=== PATIENT | female | born 1965 | race American Indian/Alaskan Native ===

== ENCOUNTER 2017-12-10 09:42 | Outpatient (CLI) | payer MEDICARE ==
--- NOTE | 2017-12-10 14:24 | Mammography Report ---
BILATERAL MAMMOGRAM: FINDINGS: The breast tissue is heterogeneously dense, which could obscure detection of small masses (approximately 50%-75% glandular). No mass, distortion, suspicious calcification, or skin change is seen. No significant exam in August 2013. CAD was utilized. IMPRESSION: Negative mammogram. There is no mammographic evidence of malignancy. RECOMMENDATION: Follow-up per ACS guidelines. BI-RADS CATEGORY: 1 = Negative ACR BI-RADS MAMMOGRAPHIC CODES: 0 = Needs additional imaging evaluation; 1 = Negative; 2 = Benign; 3 = Probably benign; 4 = Suspicious; 5 = Malignant; 6 = Known biopsy-proven malignancy COMMENT: 1. Dense breast tissue, i.e., adenosis, fibrocystic changes, etc., may obscure an underlying neoplasm. 2. Approximately 10% of cancers are not detected with mammography. 3. A negative mammography report should not delay biopsy if a clinically suspicious mass is present. COMMENT: Patient follow-up letters are generated in [email or web address].
== END 2017-12-10 09:43 | disposition home or self-care (01) ==
LOC: MAMMO 09:42
PROVIDERS: ATTEND Internal Medicine
DX: Z12.31 Encounter for screening mammogram for malignant neoplasm of breast (principal)
CPT/HCPCS: 77067

== ENCOUNTER 2018-04-13 19:32 | Emergency (ER) | payer MEDICARE ==
[2018-04-13] MEDS ORDERED: ASPIRIN PO ONE (20:18)
[2018-04-13 20:49] LABS: Basophils # (Auto) 0.1 K/mm3 (0.0-0.1); Basophils % (Auto) 1.1 % (0.0-1.8); Eosinophils # (Auto) 0.2 K/mm3 (0.0-0.4); Eosinophils % (Auto) 2.5 % (0.0-4.3); Hematocrit 52.6 % (30.3-42.9); Hemoglobin 17.6 gm/dl (10.1-14.3); Lymphocytes # (Auto) 1.8 K/mm3 (1.2-5.4); Lymphocytes % (Auto) 26.4 % (13.4-35.0); Mean Corpuscular HGB Conc 34 % (30-34); Mean Corpuscular Hemoglobin 29 pg (28-32); Mean Corpuscular Volume 87 fl (79-97); Monocytes # (Auto) 0.5 K/mm3 (0.0-0.8); Monocytes % (Auto) 6.7 % (0.0-7.3); Platelet Count 251 K/mm3 (140-440); Red Blood Count 6.02 M/mm3 (3.65-5.03); Red Cell Distribution Width 15.5 % (13.2-15.2)
[2018-04-13 21:00] LABS: INR 0.89 (0.87-1.13)
[2018-04-13 21:01] LABS: Partial Thromboplastin Time 26.5 Sec. (24.2-36.6)
[2018-04-13 21:25] LABS: Alanine Aminotransferase 11 units/L (7-56); Albumin 2.9 g/dL (3.9-5); BUN/Creatinine Ratio 19; Blood Urea Nitrogen 15 mg/dL (7-17); Calcium 9.6 mg/dL (8.4-10.2); Hemolysis Index 3; Lipase 60 units/L (13-60)
--- NOTE | 2018-04-13 21:26 | XRay Report ---
FINAL REPORT PROCEDURE: XR CHEST ROUTINE 2V TECHNIQUE: PA and lateral chest radiographs were obtained. CPT 95542 HISTORY: Shortness of Breath COMPARISON: No prior studies are available for comparison. FINDINGS: Heart: Normal. Mediastinum/Vessels: Normal. Lungs/Pleural space: A rounded inhomogeneous density is noted measuring about 2.6 centimeters located in the left lower lobe. There is prominence of the left hilar structures. Right lung and bilateral pleural spaces are clear.. Bony thorax: No acute osseous abnormality. Other: IMPRESSION: Prominent left hilum and a 2.6 centimeter density in the left lower lobe are suspicious for malignancy left lung with left hilar lymphadenopathy. CT chest pre and post contrast is recommended..
--- NOTE | 2018-04-14 00:23 | Emergency Department Report ---
ED Chest Pain HPI - General Chief Complaint: Chest Pain Stated Complaint: CEHST PAIN/ABDOMINAL PAIN Time Seen by Provider: 04/14/18 00:11 Source: patient Mode of arrival: Ambulatory Limitations: No Limitations - Related Data Previous Rx's Medication Instructions Recorded Last Taken Type ALBUTEROL Inhaler [ProAir HFA 1 puff IH Q4H PRN #1 inha 12/05/15 Unknown Rx Inhaler] Allopurinol [Zyloprim] 300 mg PO DAILY #30 tablet 12/05/15 Unknown Rx Arformoterol Nebu [Brovana Nebu] 15 mcg IH Q12HRT #1 ml 12/05/15 Unknown Rx Aspirin [Aspirin BABY CHEW TAB] 81 mg PO QDAY #30 tab.chew 12/05/15 Unknown Rx Carvedilol [Coreg] 6.25 mg PO BID #60 tablet 12/05/15 Unknown Rx Docusate Sodium [Colace CAP] 100 mg PO BID PRN #60 capsule 12/05/15 Unknown Rx Furosemide [Lasix TAB] 40 mg PO QDAY #30 tablet 12/05/15 Unknown Rx Insulin Glargine [Lantus VIAL] 35 units SUB-Q QHS #10 units 12/05/15 Unknown Rx Ipratropium/Albuterol Sulfate 1 ampul IH TID #100 ampul.neb 12/05/15 Unknown Rx [DUONEB *Not for PRN Use*] Lisinopril [Zestril TAB] 10 mg PO QDAY #30 tablet 12/05/15 Unknown Rx Potassium Chloride [Klor-Con 10] 20 meq PO DAILY #30 tablet.er 12/05/15 Unknown Rx Simvastatin [Zocor TAB] 40 mg PO QHS #30 tablet 12/05/15 Unknown Rx Albuterol *Only Ed* [Proventil 2.5 mg IH Q4HRT PRN #30 nebu 05/18/16 Unknown Rx 0.5% NEBS] Allergies Allergy/AdvReac Type Severity Reaction Status Date / Time No Known Allergies Allergy Verified 08/01/13 21:57 ED Review of Systems ROS: Stated complaint: CEHST PAIN/ABDOMINAL PAIN Other details as noted in HPI ED Past Medical Hx - Past Medical History Previous Medical History?: Yes Hx Hypertension: Yes Hx Heart Attack/AMI: No Hx Congestive Heart Failure: Yes Hx Diabetes: Yes Hx Deep Vein Thrombosis: No Hx Pulmonary Embolism: Yes (?) Hx GERD: No Hx Liver Disease: No Hx Sickle Cell Disease: No Hx Arthritis: Yes Hx Headaches / Migraines: No Hx Asthma: Yes Hx COPD: Yes (Home 02 4 liters) Hx Tuberculosis: No Hx HIV: No Additional medical history: high chol - Surgical History Hx Coronary Stent: No Hx Pacemaker: No Hx Internal Defibrillator: No Hx Breast Surgery: Yes - Social History Smoking Status: Current Every Day Smoker - Medications Home Medications: Home Medications Medication Instructions Recorded Confirmed Last Taken Type ALBUTEROL Inhaler [ProAir HFA 1 puff IH Q4H PRN #1 inha 12/05/15 05/16/16 Unknown Rx Inhaler] Allopurinol [Zyloprim] 300 mg PO DAILY #30 tablet 12/05/15 05/16/16 Unknown Rx Arformoterol Nebu [Brovana Nebu] 15 mcg IH Q12HRT #1 ml 12/05/15 05/16/16 Unknown Rx Aspirin [Aspirin BABY CHEW TAB] 81 mg PO QDAY #30 tab.chew 12/05/15 05/16/16 Unknown Rx Carvedilol [Coreg] 6.25 mg PO BID #60 tablet 12/05/15 05/16/16 Unknown Rx Docusate Sodium [Colace CAP] 100 mg PO BID PRN #60 capsule 12/05/15 05/16/16 Unknown Rx Furosemide [Lasix TAB] 40 mg PO QDAY #30 tablet 12/05/15 05/16/16 Unknown Rx Insulin Glargine [Lantus VIAL] 35 units SUB-Q QHS #10 units 12/05/15 05/16/16 Unknown Rx Ipratropium/Albuterol Sulfate 1 ampul IH TID #100 ampul.neb 12/05/15 05/16/16 Unknown Rx [DUONEB *Not for PRN Use*] Lisinopril [Zestril TAB] 10 mg PO QDAY #30 tablet 12/05/15 05/16/16 Unknown Rx Potassium Chloride [Klor-Con 10] 20 meq PO DAILY #30 tablet.er 12/05/15 Unknown Rx Simvastatin [Zocor TAB] 40 mg PO QHS #30 tablet 12/05/15 05/16/16 Unknown Rx Albuterol *Only Ed* [Proventil 2.5 mg IH Q4HRT PRN #30 nebu 05/18/16 Unknown Rx 0.5% NEBS] ED Physical Exam - General Limitations: No Limitations ED Course Vital Signs 04/13/18 04/13/18 19:36 20:12 Temperature 98.3 F 98.3 F Pulse Rate 83 88 Respiratory 18 18 Rate Blood Pressure 140/82 140/81 O2 Sat by Pulse 96 96 Oximetry FARZAD score - Farzad Score Age > 65: (0) No Aspirin use within the Past 7 Days: (1) Yes 3 or more CAD Risk Factors: (1) Yes 2 or more Angina events in past 24 hrs: (0) No Known CAD with more than 50% Stenosis: (0) No Elevated Cardiac Markers: (0) No ST Deviation Greater than 0.5mm: (0) No FARZAD Score: 2 ED Medical Decision Making - Lab Data Result diagrams: 04/13/18 20:34 04/13/18 20:34 - EKG Data -: EKG Interpreted by [facility] EKG shows normal: sinus rhythm Rate: normal - EKG Data Interpretation: no acute changes - Radiology Data Radiology results: report reviewed Referring Physician: MASOUD CASTAÑEDA Patient Name: ROBIN MANCILLA Date of : 1965 Sex: Female Report Date: 2018-04-13 Report Status: Finalized Findings [address] [address] XRay Report Signed Patient: ROBIN MANCILLA MR#: [id number] : 1965 Acct:[id number] Age/Sex: 52 / F ADM Date: 04/13/18 Loc: ED Attending Dr: Ordering Physician: MASOUD CASTAÑEDA MD Date of Service: 04/13/18 Procedure(s): XR chest routine 2V Accession Number(s): [id number] cc: MASOUD CASTAÑEDA MD Fluoro Time In Minutes: FINAL REPORT PROCEDURE: XR CHEST ROUTINE 2V TECHNIQUE: PA and lateral chest radiographs were obtained. CPT 55048 HISTORY: Shortness of Breath COMPARISON: No prior studies are available for comparison. FINDINGS: Heart: Normal. Mediastinum/Vessels: Normal. Lungs/Pleural space: A rounded inhomogeneous density is noted measuring about 2.6 centimeters located in the left lower lobe. There is prominence of the left hilar structures. Right lung and bilateral pleural spaces are clear.. Bony thorax: No acute osseous abnormality. Other: IMPRESSION: Prominent left hilum and a 2.6 centimeter density in the left lower lobe are suspicious for malignancy left lung with left hilar lymphadenopathy. CT chest pre and post contrast is recommended.. Transcribed By: [facility] Dictated By: LUCAS DE LOS SANTOS Electronically Authenticated By: LUCAS DE LOS SANTOS Signed Date/Time: 04/13/182118 DD/ 18 TD/TT: 04/13/182118 Critical care attestation.: If time is entered above; I have spent that time in minutes in the direct care of this critically ill patient, excluding procedure time. ED Disposition Condition: Stable Referrals: PRIMARY CARE, [Primary Care Provider] - 3-5 Days
[2018-04-14] MEDS ORDERED: ZOFRAN IV ONE (00:24)
[2018-04-14] MEDS ORDERED: MORPHINE IV ONE (00:24)
--- NOTE | 2018-04-14 00:28 | Emergency Department Report ---
ED Abdominal Pain HPI - General Chief Complaint: Chest Pain Stated Complaint: CEHST PAIN/ABDOMINAL PAIN Time Seen by Provider: 04/14/18 00:11 Source: patient Mode of arrival: Ambulatory Limitations: No Limitations - History of Present Illness Initial Comments: Patient is 52 years old female history of hypertension, diabetes and COPD. Patient presented to the ER complaining of epigastric abdominal pain that radiated to her back. Patient stated the pain is sharp in nature and comes and goes. Pain associated with nausea and vomiting. Patient denied any diarrhea. Patient denied any fever. MD Complaint: abdominal pain -: days(s) Location: diffuse Migration to: no migration Severity: moderate Consistency: constant - Related Data Previous Rx's Medication Instructions Recorded Last Taken Type ALBUTEROL Inhaler [ProAir HFA 1 puff IH Q4H PRN #1 inha 12/05/15 Unknown Rx Inhaler] Allopurinol [Zyloprim] 300 mg PO DAILY #30 tablet 12/05/15 Unknown Rx Arformoterol Nebu [Brovana Nebu] 15 mcg IH Q12HRT #1 ml 12/05/15 Unknown Rx Aspirin [Aspirin BABY CHEW TAB] 81 mg PO QDAY #30 tab.chew 12/05/15 Unknown Rx Carvedilol [Coreg] 6.25 mg PO BID #60 tablet 12/05/15 Unknown Rx Docusate Sodium [Colace CAP] 100 mg PO BID PRN #60 capsule 12/05/15 Unknown Rx Furosemide [Lasix TAB] 40 mg PO QDAY #30 tablet 12/05/15 Unknown Rx Insulin Glargine [Lantus VIAL] 35 units SUB-Q QHS #10 units 12/05/15 Unknown Rx Ipratropium/Albuterol Sulfate 1 ampul IH TID #100 ampul.neb 12/05/15 Unknown Rx [DUONEB *Not for PRN Use*] Lisinopril [Zestril TAB] 10 mg PO QDAY #30 tablet 12/05/15 Unknown Rx Potassium Chloride [Klor-Con 10] 20 meq PO DAILY #30 tablet.er 12/05/15 Unknown Rx Simvastatin [Zocor TAB] 40 mg PO QHS #30 tablet 12/05/15 Unknown Rx Albuterol *Only Ed* [Proventil 2.5 mg IH Q4HRT PRN #30 nebu 05/18/16 Unknown Rx 0.5% NEBS] Allergies Allergy/AdvReac Type Severity Reaction Status Date / Time No Known Allergies Allergy Verified 08/01/13 21:57 ED Review of Systems ROS: Stated complaint: CEHST PAIN/ABDOMINAL PAIN Other details as noted in HPI Comment: All other systems reviewed and negative Constitutional: denies: chills, fever Respiratory: denies: cough, orthopnea, shortness of breath, SOB with exertion, SOB at rest Cardiovascular: denies: chest pain, palpitations Gastrointestinal: abdominal pain, nausea, vomiting. denies: diarrhea, constipation, hematemesis Neurological: denies: headache, weakness, numbness, paresthesias, confusion ED Past Medical Hx - Past Medical History Previous Medical History?: Yes Hx Hypertension: Yes Hx Heart Attack/AMI: No Hx Congestive Heart Failure: Yes Hx Diabetes: Yes Hx Deep Vein Thrombosis: No Hx Pulmonary Embolism: Yes (?) Hx GERD: No Hx Liver Disease: No Hx Sickle Cell Disease: No Hx Arthritis: Yes Hx Headaches / Migraines: No Hx Asthma: Yes Hx COPD: Yes (Home 02 4 liters) Hx Tuberculosis: No Hx HIV: No Additional medical history: high chol - Surgical History Hx Coronary Stent: No Hx Pacemaker: No Hx Internal Defibrillator: No Hx Breast Surgery: Yes - Social History Smoking Status: Current Every Day Smoker - Medications Home Medications: Home Medications Medication Instructions Recorded Confirmed Last Taken Type ALBUTEROL Inhaler [ProAir HFA 1 puff IH Q4H PRN #1 inha 12/05/15 05/16/16 Unknown Rx Inhaler] Allopurinol [Zyloprim] 300 mg PO DAILY #30 tablet 12/05/15 05/16/16 Unknown Rx Arformoterol Nebu [Brovana Nebu] 15 mcg IH Q12HRT #1 ml 12/05/15 05/16/16 Unknown Rx Aspirin [Aspirin BABY CHEW TAB] 81 mg PO QDAY #30 tab.chew 12/05/15 05/16/16 Unknown Rx Carvedilol [Coreg] 6.25 mg PO BID #60 tablet 12/05/15 05/16/16 Unknown Rx Docusate Sodium [Colace CAP] 100 mg PO BID PRN #60 capsule 12/05/15 05/16/16 Unknown Rx Furosemide [Lasix TAB] 40 mg PO QDAY #30 tablet 12/05/15 05/16/16 Unknown Rx Insulin Glargine [Lantus VIAL] 35 units SUB-Q QHS #10 units 12/05/15 05/16/16 Unknown Rx Ipratropium/Albuterol Sulfate 1 ampul IH TID #100 ampul.neb 12/05/15 05/16/16 Unknown Rx [DUONEB *Not for PRN Use*] Lisinopril [Zestril TAB] 10 mg PO QDAY #30 tablet 12/05/15 05/16/16 Unknown Rx Potassium Chloride [Klor-Con 10] 20 meq PO DAILY #30 tablet.er 12/05/15 Unknown Rx Simvastatin [Zocor TAB] 40 mg PO QHS #30 tablet 12/05/15 05/16/16 Unknown Rx Albuterol *Only Ed* [Proventil 2.5 mg IH Q4HRT PRN #30 nebu 05/18/16 Unknown Rx 0.5% NEBS] ED Physical Exam - General Limitations: No Limitations General appearance: alert, in no apparent distress - Head Head exam: Present: atraumatic, normocephalic, normal inspection - ENT ENT exam: Present: normal exam, normal orophraynx, mucous membranes moist - Neck Neck exam: Present: normal inspection, full ROM. Absent: tenderness, meningismus, lymphadenopathy, thyromegaly - Respiratory Respiratory exam: Present: normal lung sounds bilaterally - Cardiovascular Cardiovascular Exam: Present: regular rate, normal rhythm, normal heart sounds - GI/Abdominal GI/Abdominal exam: Present: soft, normal bowel sounds. Absent: distended, tenderness, guarding, rebound, rigid, organomegaly, mass, bruit, pulsatile mass , hernia - Extremities Exam Extremities exam: Present: normal inspection, full ROM, normal capillary refill - Back Exam Back exam: Present: normal inspection, full ROM - Neurological Exam Neurological exam: Present: alert, oriented X3, CN II-XII intact, normal gait - Skin Skin exam: Present: warm, intact, normal color ED Course Vital Signs 04/13/18 04/13/18 04/14/18 19:36 20:12 00:08 Temperature 98.3 F 98.3 F Pulse Rate 83 88 Respiratory 18 18 18 Rate Blood Pressure 140/82 140/81 O2 Sat by Pulse 96 96 Oximetry 08/04/14/18 04/14/18 00:15 01:00 01:17 Temperature Pulse Rate 74 Respiratory 13 16 Rate Blood Pressure 125/80 135/81 O2 Sat by Pulse 94 94 94 Oximetry 04/14/18 01:28 Temperature Pulse Rate Respiratory 16 Rate Blood Pressure O2 Sat by Pulse Oximetry ED Medical Decision Making - Lab Data Result diagrams: 04/13/18 20:34 04/13/18 20:34 - EKG Data -: EKG Interpreted by [facility] EKG shows normal: sinus rhythm Rate: normal - EKG Data Interpretation: no acute changes - Radiology Data Radiology results: report reviewed Referring Physician: MASOUD CASTAÑEDA Patient Name: ROBIN MANCILLA Date of : 1965 Sex: Female Report Date: 2018-04-13 Report Status: Finalized Findings [facility] [address] [place] [address] XRay Report Signed Patient: ROBIN MANCILLA MR#: [id number] : 1965 Acct:[id number] Age/Sex: 52 / F ADM Date: 04/13/18 Loc: ED Attending Dr: Ordering Physician: MASOUD CASTAÑEDA MD Date of Service: 04/13/18 Procedure(s): XR chest routine 2V Accession Number(s): [id number] cc: MASOUD CASTAÑEDA MD Fluoro Time In Minutes: FINAL REPORT PROCEDURE: XR CHEST ROUTINE 2V TECHNIQUE: PA and lateral chest radiographs were obtained. CPT 01637 HISTORY: Shortness of Breath COMPARISON: No prior studies are available for comparison. FINDINGS: Heart: Normal. Mediastinum/Vessels: Normal. Lungs/Pleural space: A rounded inhomogeneous density is noted measuring about 2.6 centimeters located in the left lower lobe. There is prominence of the left hilar structures. Right lung and bilateral pleural spaces are clear.. Bony thorax: No acute osseous abnormality. Other: IMPRESSION: Prominent left hilum and a 2.6 centimeter density in the left lower lobe are suspicious for malignancy left lung with left hilar lymphadenopathy. CT chest pre and post contrast is recommended.. Transcribed By: [facility] Dictated By: LUCAS DE LOS SANTOS Electronically Authenticated By: LUCAS DE LOS SANTOS Signed Date/Time: 04/13/182118 Referring Physician: FABIO MELGAR Patient Name: ROBIN MANCILLA Date of : 1965 Sex: Female Report Date: 2018-04-14 Report Status: Finalized Findings [facility] [address] [place] [id number] Cat Scan Report Signed Patient: ROBIN MANCILLA MR#: [id number] : 1965 Acct:[id number] Age/Sex: 52 / F ADM Date: 04/13/18 Loc: ED Attending Dr: Ordering Physician: FABIO MELGAR Date of Service: 04/14/18 Procedure(s): CT abdomen pelvis w con Accession Number(s): [id number] cc: FABIO MLEGAR FINAL REPORT EXAM: CT ABDOMEN PELVIS W CON HISTORY: abdominal pain TECHNIQUE: Routine axial imaging was obtained of the abdomen pelvis following the intravenous injection of 100 cc of Omnipaque 350. Delayed imaging was obtained through the kidneys ureters and bladder. Sagittal and coronal reconstructions were reviewed. Comparison is made to the study of 04/21/2014. FINDINGS: Images through the lung bases reveal 2 cm in diameter noncalcified nodule in the left lower lobe along with an additional new 17.5 mm nodule in the inferior lingular segment. These not present on the previous study. Lung metastases cannot be excluded. There are no localized infiltrates or effusions. The liver is normal in size and is not show any focal lesions. The gallbladder and biliary tree appear normal. The pancreas, spleen, and adrenal glands appear normal. The kidneys enhance normally. Adenopathy is not seen. There calcification of the abdominal aorta. The bowel loops are normal in caliber and course. The appendix is not enlarged. In the pelvis the uterus and bladder appear normal. The skeletal structures reveal arthritic changes in the lower lumbar spine. IMPRESSION: New nodules in the left lower lobe and lingula with measurements as described. Lung metastases cannot be excluded. No acute process in the abdomen and pelvis otherwise. Normal appendix. Arthritic changes in the lower lumbar spine. Transcribed By: RB Dictated By: EVELINE JAMES MD Electronically Authenticated By: EVELINE JAMES MD Signed Date/Time: 04/14/18322 DD/ 2 TD/TT: 04/14/18322 DD/ 18 TD/TT: 04/13/182118 - Medical Decision Making Patient stated that she is feeling much better. No abdominal pain, no nausea no vomiting. Critical care attestation.: If time is entered above; I have spent that time in minutes in the direct care of this critically ill patient, excluding procedure time. ED Disposition Clinical Impression: Chest pain, Abdominal pain, UTI (urinary tract infection) Disposition: TO HOME OR SELFCARE Is pt being admited?: No Condition: Stable Instructions: Chest Pain (ED), Urinary Tract Infection in Women (ED), Abdominal Pain (ED) Referrals: PRIMARY CARE,MD [Primary Care Provider] - 3-5 Days
[2018-04-14 01:05] LABS: Lipase 53 units/L (13-60)
[2018-04-14 01:42] LABS: Bacteria,Urine 3+ /HPF (Negative); Bilirubin,Urine NEG (Negative); Blood,Urine NEG (Negative); Color,Urine Amber (Yellow); Hyaline Casts,Urine 132 /LPF; Mucus,Urine 3+ /HPF; Renal Epithelial Cells,Urine 2 /LPF
[2018-04-14 01:50] LABS: Protein,Urine >500 mg/dL (Negative)
--- NOTE | 2018-04-14 03:31 | Cat Scan Report ---
FINAL REPORT EXAM: CT ABDOMEN PELVIS W CON HISTORY: abdominal pain TECHNIQUE: Routine axial imaging was obtained of the abdomen pelvis following the intravenous injection of 100 cc of Omnipaque 350. Delayed imaging was obtained through the kidneys ureters and bladder. Sagittal and coronal reconstructions were reviewed. Comparison is made to the study of 04/21/2014. FINDINGS: Images through the lung bases reveal 2 cm in diameter noncalcified nodule in the left lower lobe along with an additional new 17.5 mm nodule in the inferior lingular segment. These not present on the previous study. Lung metastases cannot be excluded. There are no localized infiltrates or effusions. The liver is normal in size and is not show any focal lesions. The gallbladder and biliary tree appear normal. The pancreas, spleen, and adrenal glands appear normal. The kidneys enhance normally. Adenopathy is not seen. There calcification of the abdominal aorta. The bowel loops are normal in caliber and course. The appendix is not enlarged. In the pelvis the uterus and bladder appear normal. The skeletal structures reveal arthritic changes in the lower lumbar spine. IMPRESSION: New nodules in the left lower lobe and lingula with measurements as described. Lung metastases cannot be excluded. No acute process in the abdomen and pelvis otherwise. Normal appendix. Arthritic changes in the lower lumbar spine.
[2018-04-14] MEDS ORDERED: ROCEPHIN/NS 1 GM/50 ML 1 GM/50 ML BAG IV ONE (04:33)
[2018-04-14] MEDS ORDERED: ROCEPHIN IM ONE ×2 (05:39→05:40)
[2018-04-14] MEDS ORDERED: XYLOCAINE 1% MPF 5 mL INFILTRATI ONE (05:40)
[2018-04-14 06:12] VITALS: BP 136/70
== END 2018-04-14 06:27 | disposition home or self-care (01) ==
LOC: ED 19:32
DX: R07.89 Other chest pain (principal); N39.0 Urinary tract infection, site not specified; I11.0 Hypertensive heart disease with heart failure; I50.9 Heart failure, unspecified; Z86.711 Personal history of pulmonary embolism; M19.90 Unspecified osteoarthritis, unspecified site; J44.9 Chronic obstructive pulmonary disease, unspecified; E78.00 Pure hypercholesterolemia, unspecified; F17.200 Nicotine dependence, unspecified, uncomplicated
CPT/HCPCS: 36415; 71046; 74177; 80053; 81001; 83690; 84484; 85025; 85610; 85730; 93005; 93010; 96372; 96374; 96375; 99284; J0696; J2270; J2405; Q9967

== ENCOUNTER 2018-10-31 20:29 | Inpatient (IN) | payer MEDICARE ==
--- NOTE | 2018-10-31 22:03 | Emergency Department Report ---
ED General Adult HPI - General Chief complaint: Dyspnea/Respdistress Stated complaint: NUVIA Time Seen by Provider: 10/31/18 21:54 Source: EMS Mode of arrival: Stretcher Limitations: No Limitations - History of Present Illness Initial comments: Radha is a 53-year-old female past medical history of congestive heart failure COPD who presents with shortness of breath that has been going on for the last 2 days. Patient states she tried to use her rescue inhaler but she had no relief. Patient doesn't have any pain she says nothing makes her shortness o f breath better and nothing makes it worse. Patient denies having any fevers or chills. - Related Data Home Medications Medication Instructions Recorded Confirmed Last Taken Exenatide Microspheres [Bydureon 2 mg SQ QWEEK 11/01/18 11/01/18 Unknown Bcise] Glimepiride [Amaryl] 4 mg PO DAILY 11/01/18 11/01/18 Unknown Isosorb Dinit/Hydralazine [Bidil 1 tab PO BID 11/01/18 11/01/18 Unknown 20/37.5MG] Pantoprazole [Protonix] 40 mg PO QDAY 11/01/18 11/01/18 Unknown amLODIPine [Norvasc] 10 mg PO DAILY 11/01/18 11/01/18 Unknown metFORMIN [Glucophage] 500 mg PO BID 11/01/18 11/01/18 Unknown predniSONE [Deltasone] 10 mg PO QDAY 11/01/18 11/01/18 Unknown Previous Rx's Medication Instructions Recorded Last Taken Type ALBUTEROL Inhaler (OR & NICU) 1 puff IH Q4H PRN #1 inha 12/05/15 Unknown Rx [ProAir HFA Inhaler] Allopurinol [Zyloprim] 300 mg PO DAILY #30 tablet 12/05/15 Unknown Rx Aspirin [Aspirin BABY CHEW TAB] 81 mg PO QDAY #30 tab.chew 12/05/15 Unknown Rx Carvedilol [Coreg] 6.25 mg PO BID #60 tablet 12/05/15 Unknown Rx Furosemide [Lasix TAB] 40 mg PO QDAY #30 tablet 12/05/15 Unknown Rx Insulin Glargine [Lantus VIAL] 35 units SUB-Q QHS #10 units 12/05/15 Unknown Rx Ipratropium/Albuterol Sulfate 1 ampul IH TID #100 ampul.neb 12/05/15 Unknown Rx [DUONEB *Not for PRN Use*] Simvastatin [Zocor TAB] 40 mg PO QHS #30 tablet 12/05/15 Unknown Rx Albuterol *Only Ed* [Proventil 2.5 mg IH Q4HRT PRN #30 nebu 05/18/16 Unknown Rx 0.5% NEBS] Allergies Allergy/AdvReac Type Severity Reaction Status Date / Time No Known Allergies Allergy Verified 08/01/13 21:57 ED Review of Systems ROS: Stated complaint: NUVIA Other details as noted in HPI Constitutional: denies: chills, fever Eyes: denies: eye pain, eye discharge, vision change ENT: denies: ear pain, throat pain Respiratory: cough, shortness of breath. denies: wheezing Cardiovascular: denies: chest pain, palpitations Endocrine: no symptoms reported Gastrointestinal: denies: abdominal pain, nausea, diarrhea Genitourinary: denies: urgency, dysuria, discharge Musculoskeletal: denies: back pain, joint swelling, arthralgia Skin: denies: rash, lesions Neurological: denies: headache, weakness, paresthesias Psychiatric: denies: anxiety, depression Hematological/Lymphatic: denies: easy bleeding, easy bruising ED Past Medical Hx - Past Medical History Previous Medical History?: Yes Hx Hypertension: Yes Hx Heart Attack/AMI: No Hx Congestive Heart Failure: Yes Hx Diabetes: Yes Hx Deep Vein Thrombosis: No Hx Pulmonary Embolism: Yes (?) Hx GERD: No Hx Liver Disease: No Hx Sickle Cell Disease: No Hx Arthritis: Yes Hx Headaches / Migraines: No Hx Asthma: Yes Hx COPD: Yes (Home 02 4 liters) Hx Tuberculosis: No Hx HIV: No Additional medical history: high chol - Surgical History Past Surgical History?: Yes Hx Coronary Stent: No Hx Pacemaker: No Hx Internal Defibrillator: No Hx Breast Surgery: Yes - Social History Smoking Status: Current Some Day Smoker Substance Use Type: None - Medications Home Medications: Home Medications Medication Instructions Recorded Confirmed Last Taken Type ALBUTEROL Inhaler (OR & NICU) 1 puff IH Q4H PRN #1 inha 12/05/15 11/01/18 Unknown Rx [ProAir HFA Inhaler] Allopurinol [Zyloprim] 300 mg PO DAILY #30 tablet 12/05/15 11/01/18 Unknown Rx Aspirin [Aspirin BABY CHEW TAB] 81 mg PO QDAY #30 tab.chew 12/05/15 11/01/18 Unknown Rx Carvedilol [Coreg] 6.25 mg PO BID #60 tablet 12/05/15 11/01/18 Unknown Rx Furosemide [Lasix TAB] 40 mg PO QDAY #30 tablet 12/05/15 11/01/18 Unknown Rx Insulin Glargine [Lantus VIAL] 35 units SUB-Q QHS #10 units 12/05/15 11/01/18 Unknown Rx Ipratropium/Albuterol Sulfate 1 ampul IH TID #100 ampul.neb 12/05/15 11/01/18 Unknown Rx [DUONEB *Not for PRN Use*] Simvastatin [Zocor TAB] 40 mg PO QHS #30 tablet 12/05/15 11/01/18 Unknown Rx Albuterol *Only Ed* [Proventil 2.5 mg IH Q4HRT PRN #30 nebu 05/18/16 11/01/18 Unknown Rx 0.5% NEBS] Exenatide Microspheres [Bydureon 2 mg SQ QWEEK 11/01/18 11/01/18 Unknown History Bcise] Glimepiride [Amaryl] 4 mg PO DAILY 11/01/18 11/01/18 Unknown History Isosorb Dinit/Hydralazine [Bidil 1 tab PO BID 11/01/18 11/01/18 Unknown History 20/37.5MG] Pantoprazole [Protonix] 40 mg PO QDAY 11/01/18 11/01/18 Unknown History amLODIPine [Norvasc] 10 mg PO DAILY 11/01/18 11/01/18 Unknown History metFORMIN [Glucophage] 500 mg PO BID 11/01/18 11/01/18 Unknown History predniSONE [Deltasone] 10 mg PO QDAY 11/01/18 11/01/18 Unknown History ED Physical Exam - General Limitations: No Limitations General appearance: alert, in no apparent distress - Head Head exam: Present: atraumatic, normocephalic - Eye Eye exam: Present: normal appearance - ENT ENT exam: Present: mucous membranes moist - Neck Neck exam: Present: normal inspection - Respiratory Respiratory exam: Present: wheezes. Absent: respiratory distress - Cardiovascular Cardiovascular Exam: Present: regular rate, normal rhythm. Absent: systolic murmur, diastolic murmur, rubs, gallop - GI/Abdominal GI/Abdominal exam: Present: soft, normal bowel sounds - Extremities Exam Extremities exam: Present: normal inspection - Back Exam Back exam: Present: normal inspection - Neurological Exam Neurological exam: Present: alert, oriented X3 - Psychiatric Psychiatric exam: Present: normal affect, normal mood - Skin Skin exam: Present: warm, dry, intact, normal color. Absent: rash ED Course Vital Signs 10/31/18 10/31/18 10/31/18 21:57 22:00 23:00 Temperature 98.3 F Pulse Rate 96 H 92 H 94 H Pulse Rate [ Anterior Bilateral Throughout] Respiratory 16 14 22 Rate Respiratory Rate [Anterior Bilateral Throughout] Blood Pressure 111/69 129/84 127/79 Blood Pressure 111/69 [Left] O2 Sat by Pulse 90 92 92 Oximetry 10/31/18 10/31/18 11/01/18 23:05 23:55 00:00 Temperature Pulse Rate 96 H 92 H Pulse Rate [ 95 H Anterior Bilateral Throughout] Respiratory 22 23 Rate Respiratory 18 Rate [Anterior Bilateral Throughout] Blood Pressure 127/79 117/69 Blood Pressure [Left] O2 Sat by Pulse 95 96 Oximetry 11/01/18 11/01/18 00:56 02:03 Temperature Pulse Rate Pulse Rate [ 91 H Anterior Bilateral Throughout] Respiratory Rate Respiratory 22 Rate [Anterior Bilateral Throughout] Blood Pressure 117/69 Blood Pressure [Left] O2 Sat by Pulse 94 Oximetry ED Medical Decision Making - Lab Data Result diagrams: 10/31/18 22:15 10/31/18 22:15 Lab Results 10/31/18 10/31/18 11/01/18 Range/Units 22:15 22:15 00:57 WBC 7.6 (4.5-11.0) K/mm3 RBC 4.81 (3.65-5.03) M/mm3 Hgb 13.7 (10.1-14.3) gm/dl Hct 41.9 (30.3-42.9) % MCV 87 (79-97) fl MCH 29 (28-32) pg MCHC 33 (30-34) % RDW 16.8 H (13.2-15.2) % Plt Count 218 (140-440) K/mm3 Lymph % (Auto) 18.9 (13.4-35.0) % Preston % (Auto) 3.1 (0.0-7.3) % Eos % (Auto) 0.3 (0.0-4.3) % Baso % (Auto) 0.9 (0.0-1.8) % Lymph # 1.4 (1.2-5.4) K/mm3 Preston # 0.2 (0.0-0.8) K/mm3 Eos # 0.0 (0.0-0.4) K/mm3 Baso # 0.1 (0.0-0.1) K/mm3 Seg Neutrophils % 76.8 H (40.0-70.0) % Seg Neutrophils # 5.8 (1.8-7.7) K/mm3 POC ABG pH 7.322 L (7.35-7.45) POC ABG pCO2 69.7 H (35-45) POC ABG pO2 81 (80-105) POC ABG HCO3 36.0 POC ABG Total CO2 38 POC ABG O2 Sat 94 POC ABG Base Excess 10 FiO2 80 % Sodium 137 (137-145) mmol/L Potassium 4.1 (3.6-5.0) mmol/L Chloride 96.2 L (98-107) mmol/L Carbon Dioxide 34 H (22-30) mmol/L Anion Gap 11 mmol/L BUN 16 (7-17) mg/dL Creatinine 0.7 (0.7-1.2) mg/dL Estimated GFR > 60 ml/min BUN/Creatinine Ratio 23 % Glucose 351 H (65-100) mg/dL Calcium 8.6 (8.4-10.2) mg/dL Troponin T < 0.010 (0.00-0.029) ng/mL NT-Pro-B Natriuret Pep 1425 H (0-900) pg/mL - EKG Data -: EKG Interpreted by Pr - EKG Data EKG shows sinus rhythm by lateral H enlargement no ST segment elevation or T- wave inversion normal axis 11/01/18 03:21 - Radiology Data Radiology results: report reviewed, image reviewed Chest x-ray: Moderate right and mild degree left pleural effusions and 2.4 cm and monitor lesion left lower lung suspicious for malignancy. CT scan: Extensive aortic disease in the right middle lobe and right lower lobe suspicious for pneumonia 2 cm x 2 cm calcified mass in left lower lobe malignancy is suspected - Medical Decision Making Medical diagnosis: Pneumonia Differential medical diagnoses pulmonary embolism, COPD exacerbation, hype rcapnia I will get BiPAP ABG CBC BMP breathing treatment IV antibiotics and will admit patient to the hospital. Critical Care Time: Yes (60) Critical care time in (mins) excluding proc time.: 60 Critical care attestation.: If time is entered above; I have spent that time in minutes in the direct care of this critically ill patient, excluding procedure time. Critical care time spent in patient's bedside 60 minutes ED Disposition Clinical Impression: Nodule of left lung COPD (chronic obstructive pulmonary disease) Qualifiers: COPD type: unspecified COPD Qualified Code(s): J44.9 - Chronic obstructive pulmonary disease, unspecified PNA (pneumonia) Qualifiers: Pneumonia type: due to unspecified organism Laterality: right Lung location: unspecified part of lung Qualified Code(s): J18.9 - Pneumonia, unspecified organism Disposition: -09 OP ADMIT IP TO THIS HOSP Is pt being admited?: Yes Does the pt Need Aspirin: No Condition: Stable Instructions: Chronic Obstructive Pulmonary Disease (ED), Bacterial Pneumonia (ED) Referrals: PRIMARY CARE, [Primary Care Provider] - 3-5 Days
[2018-10-31] MEDS ORDERED: PROVENTIL IH ONE (22:08)
[2018-10-31] MEDS ORDERED: ATROVENT IH ONE (22:09)
[2018-10-31 22:28] LABS: Basophils # (Auto) 0.1 K/mm3 (0.0-0.1); Basophils % (Auto) 0.9 % (0.0-1.8); Eosinophils % (Auto) 0.3 % (0.0-4.3); Hematocrit 41.9 % (30.3-42.9); Hemoglobin 13.7 gm/dl (10.1-14.3); Lymphocytes # (Auto) 1.4 K/mm3 (1.2-5.4); Lymphocytes % (Auto) 18.9 % (13.4-35.0); Mean Corpuscular HGB Conc 33 % (30-34); Mean Corpuscular Volume 87 fl (79-97); Monocytes # (Auto) 0.2 K/mm3 (0.0-0.8); Monocytes % (Auto) 3.1 % (0.0-7.3); Platelet Count 218 K/mm3 (140-440); Red Blood Count 4.81 M/mm3 (3.65-5.03); Red Cell Distribution Width 16.8 % (13.2-15.2)
[2018-10-31 22:35] LABS: BUN/Creatinine Ratio 23; Blood Urea Nitrogen 16 mg/dL (7-17); Calcium 8.6 mg/dL (8.4-10.2); Hemolysis Index 13
[2018-10-31] MEDS ORDERED: LASIX IV ONE (23:00)
--- NOTE | 2018-10-31 23:21 | XRay Report ---
PROCEDURE: XR CHEST 1V AP TECHNIQUE: Chest radiograph single view. HISTORY: sob COMPARISONS: None . FINDINGS: A 2.4 cm nodular lesion is noted in the left lower lung. There is moderate cardiomegaly. Pleural effu kane obscuring the right lower lung. There is also mild degree of left pleural effusion. Cardiac outl esmer are not well visualized. IMPRESSION: Moderate right-sided and mild degree left-sided pleural effusion. 2.4 cm nodular lesion left lower lung suspicious for malignancy. CT chest is recommended for further evaluation. This document is electronically signed by Han Giles MD., October 31 2018 10:44:26 PM ET
--- NOTE | 2018-11-01 02:02 | Cat Scan Report ---
PROCEDURE: CT ANGIO CHEST TECHNIQUE: Computerized tomographic angiography of the chest was performed after the IV injection of iodinated nonionic contrast including image processing. The image data was postprocessed using 2-di mensional multiplanar reformatted (MPR) and 3-dimensional (MIP and/or volume rendered) techniques. Au tomated exposure control, adjustment of mA and/or kV according to patient size, or iterative reconstr uction dose optimization techniques were utilized. CT DOSE LENGTH PRODUCT: mGycm HISTORY: sob COMPARISONS: Chest x-ray of 10/31/2018 . FINDINGS: Heart and pericardium: The heart is mildly enlarged. Pericardial fluid is not identified.. Thoracic aorta: Normal. Pulmonary vasculature: There is no evidence of pulmonary embolus. The lungs are diffusely congested.. Lymph nodes: There is an enlarged ductal lymph node measuring 2.7 cm x 2.5 cm. There is an enlarged lymph node in the AP window measuring 2.6 cm x 1.9 cm. There are several prevascular space lymph node s also.. Lungs: There is extensive airspace disease in the right middle lobe and right lower lobe with air br onchograms. Additional infiltrates are seen in the left lower lobe as well. There is a suspicious par tially calcified mass in the left lower lobe measuring 2.1 cm x 2 cm. A malignancy is suspected.. Pleural space: There is a moderate right-sided effusion with a smaller left-sided effusion. There is nodular thickening of the left major fissure believed to be related to partially loculated pleural f luid.. Musculoskeletal structures: No significant abnormality. Upper abdominal structures: No significant abnormality. IMPRESSION: No evidence of pulmonary embolus or aortic dissection. Cardiomegaly with vascular congestion, interstitial edema and bilateral effusions. Extensive airspace disease in the right middle lobe and right lower lobe and to a lesser extent in th e left lower lobe. The findings are suspicious for associated pneumonia. Suspicious 2.1 cm x 2 cm partially calcified solid mass in the left lower lobe. A malignancy is suspe cted. Enlarged lymph nodes in the preductal space and AP window. Several smaller lymph nodes are also noted in the prevascular space in the mediastinum. This document is electronically signed by Seth Downs MD., November 01 2018 02:00:27 AM ET
[2018-11-01] MEDS ORDERED: LEVAQUIN 750MG/150ML 750 MG/150 ML BAG IV ONE (02:42)
[2018-11-01] MEDS ORDERED: SODIUM CHLORIDE FLUSH SYRINGE 10 ML IV PRN (04:20)
[2018-11-01] MEDS ORDERED: ZOFRAN IV PRN (04:20)
[2018-11-01] MEDS ORDERED: TYLENOL PO PRN (04:20)
--- NOTE | 2018-11-01 04:27 | History and Physical Report ---
History of Present Illness Date of examination: 11/01/18 History of present illness: 53-year-old with a history of hypertension, diabetes, hyperlipidemia, COPD on home oxygen, CHF comes emergency room with shortness of breath 4 days. She states that her oxygen level was dropping at home, raging between 66 and 92% on 2 L oxygen. She feels weak, tired, she has changed her schedule of Lasix from twice a day to daily because she was too sleepy to take it Review of systems Constitutional: no weight loss, chills, fever Ears, eyes, nose, mouth and throat: no nasal congestion, no nasal discharge, no sinus pressure, no vision change, no red eye. Neck: No neck pain or rigidity. Cardiovascular: no palpitations, chest pain Respiratory: no cough Gastrointestinal: no hematochezia, abdominal pain Genitourinary : no frequency , no hematuria Musculoskeletal: no joint swelling or muscle ache Integumentary: no rash, no pruritis Neurological: no parathesias, no focal weakness Endocrine: no cold or heat intolerance, no polyuria or polydipsia Hematologic/Lymphatic: no easy bruising, no easy bleeding, no gland swelling Allergic/Immunologic: no urticaria, no angioedema. PAST MEDICAL HISTORY: hypertension, diabetes, hyperlipidemia, COPD on home oxygen, CHF PAST SURGICAL HISTORY: None SOCIAL HISTORY: Denies alcohol, drugs, tobacco FAMILY HISTORY: Hypertension Medications and Allergies Allergies Allergy/AdvReac Type Severity Reaction Status Date / Time No Known Allergies Allergy Verified 08/01/13 21:57 Home Medications Medication Instructions Recorded Confirmed Last Taken Type ALBUTEROL Inhaler (OR & NICU) 1 puff IH Q4H PRN #1 inha 12/05/15 11/01/18 Unknown Rx [ProAir HFA Inhaler] Allopurinol [Zyloprim] 300 mg PO DAILY #30 tablet 12/05/15 11/01/18 Unknown Rx Aspirin [Aspirin BABY CHEW TAB] 81 mg PO QDAY #30 tab.chew 12/05/15 11/01/18 Unknown Rx Carvedilol [Coreg] 6.25 mg PO BID #60 tablet 12/05/15 11/01/18 Unknown Rx Furosemide [Lasix TAB] 40 mg PO QDAY #30 tablet 12/05/15 11/01/18 Unknown Rx Insulin Glargine [Lantus VIAL] 35 units SUB-Q QHS #10 units 04/05/16 03/03/19 Unknown Rx Ipratropium/Albuterol Sulfate 1 ampul IH TID #100 ampul.neb 12/05/15 11/01/18 Unknown Rx [DUONEB *Not for PRN Use*] Simvastatin [Zocor TAB] 40 mg PO QHS #30 tablet 12/05/15 11/01/18 Unknown Rx Albuterol *Only Ed* [Proventil 2.5 mg IH Q4HRT PRN #30 nebu 05/18/16 11/01/18 Unknown Rx 0.5% NEBS] Exenatide Microspheres [Bydureon 2 mg SQ QWEEK 11/01/18 11/01/18 Unknown History Bcise] Glimepiride [Amaryl] 4 mg PO DAILY 11/01/18 11/01/18 Unknown History Isosorb Dinit/Hydralazine [Bidil 1 tab PO BID 11/01/18 11/01/18 Unknown History 20/37.5MG] Pantoprazole [Protonix TAB] 40 mg PO QDAY 11/01/18 11/01/18 Unknown History amLODIPine [Norvasc] 10 mg PO DAILY 11/01/18 11/01/18 Unknown History metFORMIN [Glucophage] 500 mg PO BID 11/01/18 11/01/18 Unknown History Prednisone [predniSONE 10 mg 10 mg PO .TAPER #1 tab.ds.pk 11/05/18 Unknown Rx (6-Day Pack, 21 Tabs)] Active Meds: Active Medications Acetaminophen (Tylenol) 650 mg PO Q4H PRN PRN Reason: Pain MILD(1-3)/Fever >100.5/WANG Albuterol/Ipratropium (Duoneb *Not For Prn Use*) 1 ampul IH Q6HRT [place] Enoxaparin Sodium (Lovenox) 30 mg SUB-Q QDAY [place] Methylprednisolone Sodium Succinate (Solu-Medrol) 60 mg IV Q8H [place] Ondansetron HCl (Zofran) 4 mg IV Q8H PRN PRN Reason: Nausea And Vomiting Sodium Chloride (Sodium Chloride Flush Syringe 10 Ml) 10 ml IV BID [place] Sodium Chloride (Sodium Chloride Flush Syringe 10 Ml) 10 ml IV PRN PRN PRN Reason: LINE FLUSH Exam - Physical Exam Narrative exam: General Apperance: The patient lying in bed, breathing comfortable HEENT: Normocephalic, atraumatic. Pupils equally round and reactive to light, EOMI, no sclericterus or JVD or thyromegaly or nodule. , no carotid bruit, mucous membranes moist, no exudate or erythema Heart: S1-S2, regular is rhythm Lungs: [place] bilaterally, breathing comfortable Abdomen: Positive bowel sounds, soft, nontender, nondistended, no organomegaly Extremities: No edema cyanosis clubbing Skin: no rash, nodule, warm and dry Neuro: cranial nerves 2-12 intact, speech is fluent, motor/sensory intact - Constitutional Vitals: Temp Pulse Resp BP Pulse Ox 98.3 F 94 H 25 H 133/80 91 10/31/18 21:57 11/01/18 04:01 11/01/18 04:01 11/01/18 04:01 11/01/18 04:01 Results - Labs CBC & Chem 7: 11/05/18 05:15 11/05/18 05:15 Labs: Abnormal lab results 10/31/18 10/31/18 11/01/18 Range/Units 22:15 22:15 00:57 RDW 16.8 H (13.2-15.2) % Seg Neutrophils % 76.8 H (40.0-70.0) % POC ABG pH 7.322 L (7.35-7.45) POC ABG pCO2 69.7 H (35-45) Chloride 96.2 L (98-107) mmol/L Carbon Dioxide 34 H (22-30) mmol/L Glucose 351 H (65-100) mg/dL NT-Pro-B Natriuret Pep 1425 H (0-900) pg/mL - Imaging and Cardiology Chest x-ray: report reviewed CT scan - chest: report reviewed Assessment and Plan Assessment Acute respiratory failure Community-acquired pneumonia multifocal CHF, stable Diabetes Hypertension Hyperlipidemia Plan Admit to medicine Continue BiPAP Start high-dose steroids, start Levaquin Follow Cultures, pulmonary was consulted to see the patient Check fingersticks initiate insulin sliding scale DVT prophylaxis
[2018-11-01] MEDS ORDERED: PROVENTIL IH PRN (04:32)
[2018-11-01] MEDS: SOLU-Medrol IV SCH ×3 (05:31→21:46)
[2018-11-01] MEDS: AMARYL PO SCH (08:08)
[2018-11-01] MEDS: GLUCOPHAGE PO SCH ×2 (08:21→17:11)
--- NOTE | 2018-11-01 09:44 | Event Note ---
Date: 11/01/18 53-year-old female patient with multiple medical problems was admitted this morning through emergency room with worsening shortness of breath, CT chest interstitial edema and bilateral effusions extensive airspace disease involving right middle lobe and right lower lobe and left lower lobe, as well as left lower lobe mass, suspicious for malignancy and lymphadenopathy, Pulmonary consulted Medical records reviewed, continue current management, follow-up pulmonary evaluation and recommendations And follow workup.
[2018-11-01] MEDS: DUONEB *Not for PRN Use IH SCH ×3 (09:45→19:57)
[2018-11-01] MEDS: BIDIL 20/37.5MG PO SCH ×2 (09:59→21:44)
[2018-11-01] MEDS: ZYLOPRIM PO SCH (10:00)
[2018-11-01] MEDS: NORVASC PO SCH (10:00)
[2018-11-01] MEDS: PROTONIX PO SCH (10:00)
[2018-11-01] MEDS: BABY ASPIRIN PO SCH (10:00)
[2018-11-01] MEDS: COREG PO SCH ×2 (10:00→21:44)
[2018-11-01] MEDS ORDERED: LOVENOX SUB-Q SCH (10:00)
[2018-11-01] MEDS: LASIX PO SCH (10:00)
[2018-11-01] MEDS: SODIUM CHLORIDE FLUSH SYRINGE 10 ML IV SCH ×2 (10:01→21:45)
[2018-11-01] MEDS: LOVENOX SUB-Q SCH (10:01)
[2018-11-01] MEDS: HumaLOG SUB-Q SCH ×3 (14:15→21:45)
--- NOTE | 2018-11-01 16:10 | Consultation ---
History of Present Illness Consult date: 11/01/18 Requesting physician: ABILIO KUNZ Reason for consult: COPD, hypoxemia History of present illness: 53 y/o female, well know to our practice with long history of noncompliance and continued smoking admitted with acute hypoxic respiratory failure and COPD exacerbation. Patient was admitted to [facility] 3 weeks ago with Pneumonia. Since her discharge, she has not been compliant with lasix therapy and had developed swelling. She also started having shortness of breath again. EMS was called and she was brought here. Patient initially required bipap but has since been weaned to HFNC. Awake and alert and speaking in full sentences without distress. Family at bedside, all of whom smell like smoke. Past History Past Medical History: COPD, heart failure, hypertension Past Surgical History: Other Social history: smoking (continues to smoke) Family history: no significant family history Medications and Allergies Allergies Allergy/AdvReac Type Severity Reaction Status Date / Time No Known Allergies Allergy Verified 08/01/13 21:57 Home Medications Medication Instructions Recorded Confirmed Last Taken Type ALBUTEROL Inhaler (OR & NICU) 1 puff IH Q4H PRN #1 inha 12/05/15 11/01/18 Unknown Rx [ProAir HFA Inhaler] Allopurinol [Zyloprim] 300 mg PO DAILY #30 tablet 12/05/15 11/01/18 Unknown Rx Aspirin [Aspirin BABY CHEW TAB] 81 mg PO QDAY #30 tab.chew 12/05/15 11/01/18 Unknown Rx Carvedilol [Coreg] 6.25 mg PO BID #60 tablet 12/05/15 11/01/18 Unknown Rx Furosemide [Lasix TAB] 40 mg PO QDAY #30 tablet 12/05/15 11/01/18 Unknown Rx Insulin Glargine [Lantus VIAL] 35 units SUB-Q QHS #10 units 12/05/15 11/01/18 Unknown Rx Ipratropium/Albuterol Sulfate 1 ampul IH TID #100 ampul.neb 12/05/15 11/01/18 Unknown Rx [DUONEB *Not for PRN Use*] Simvastatin [Zocor TAB] 40 mg PO QHS #30 tablet 12/05/15 11/01/18 Unknown Rx Albuterol *Only Ed* [Proventil 2.5 mg IH Q4HRT PRN #30 nebu 05/18/16 11/01/18 Unknown Rx 0.5% NEBS] Exenatide Microspheres [Bydureon 2 mg SQ QWEEK 11/01/18 11/01/18 Unknown History Bcise] Glimepiride [Amaryl] 4 mg PO DAILY 11/01/18 11/01/18 Unknown History Isosorb Dinit/Hydralazine [Bidil 1 tab PO BID 11/01/18 11/01/18 Unknown History 20/37.5MG] Pantoprazole [Protonix] 40 mg PO QDAY 11/01/18 11/01/18 Unknown History amLODIPine [Norvasc] 10 mg PO DAILY 11/01/18 11/01/18 Unknown History metFORMIN [Glucophage] 500 mg PO BID 11/01/18 11/01/18 Unknown History predniSONE [Deltasone] 10 mg PO QDAY 11/01/18 11/01/18 Unknown History Active Meds: Active Medications Acetaminophen (Tylenol) 650 mg PO Q4H PRN PRN Reason: Pain MILD(1-3)/Fever >100.5/WANG Albuterol (Proventil) 2.5 mg IH ONCE PRN PRN Reason: Wheezing Albuterol/Ipratropium (Duoneb *Not For Prn Use*) 1 ampul IH Q6HRT [facility] Last Admin: 11/01/18 13:11 Dose: 1 ampul Documented by: Allopurinol (Zyloprim) 300 mg PO DAILY [facility] Last Admin: 11/01/18 10:00 Dose: 300 mg Documented by: Amlodipine Besylate (Norvasc) 10 mg PO DAILY [facility] Last Admin: 11/01/18 10:00 Dose: 10 mg Documented by: Aspirin (Baby Aspirin) 81 mg PO QDAY [facility] Last Admin: 11/01/18 10:00 Dose: 81 mg Documented by: Carvedilol (Coreg) 6.25 mg PO BID [facility] Last Admin: 11/01/18 10:00 Dose: 6.25 mg Documented by: Enoxaparin Sodium (Lovenox) 40 mg SUB-Q QDAY@1000 [facility] Last Admin: 11/01/18 10:01 Dose: 40 mg Documented by: Furosemide (Lasix) 40 mg PO QDAY [facility] Last Admin: 11/01/18 10:00 Dose: 40 mg Documented by: Glimepiride (Amaryl) 4 mg PO QDDIAB [facility] Last Admin: 11/01/18 08:08 Dose: 4 mg Documented by: Insulin Glargine (Lantus) 35 units SUB-Q QHS [facility] Insulin Human Lispro (Humalog) 0 unit SUB-Q ACHS [facility]; Protocol Last Admin: 11/01/18 14:15 Dose: 8 unit Documented by: Isosorbide Dinitrate/Hydralazine (Bidil 20/37.5mg) 1 each PO BID [facility] Last Admin: 11/01/18 09:59 Dose: 1 each Documented by: Metformin HCl (Glucophage) 500 mg PO BIDDIAB [facility] Last Admin: 11/01/18 08:21 Dose: Not Given Documented by: Methylprednisolone Sodium Succinate (Solu-Medrol) 60 mg IV Q8HR [facility] Last Admin: 11/01/18 14:09 Dose: 60 mg Documented by: Ondansetron HCl (Zofran) 4 mg IV Q8H PRN PRN Reason: Nausea And Vomiting Pantoprazole Sodium (Protonix) 40 mg PO QDAY [facility] Last Admin: 11/01/18 10:00 Dose: 40 mg Documented by: Pravastatin Sodium (Pravachol) 80 mg PO QHS [facility] Sodium Chloride (Sodium Chloride Flush Syringe 10 Ml) 10 ml IV BID [facility] Last Admin: 11/01/18 10:01 Dose: 10 ml Documented by: Sodium Chloride (Sodium Chloride Flush Syringe 10 Ml) 10 ml IV PRN PRN PRN Reason: LINE FLUSH Review of Systems All systems: negative Physical Examination Vital signs: Vital Signs Temp Pulse Resp BP Pulse Ox 98.3 F 96 H 16 111/69 90 10/31/18 21:57 10/31/18 21:57 10/31/18 21:57 10/31/18 21:57 10/31/18 21:57 General appearance: no acute distress, alert Eyes: non-icteric ENT: oropharynx moist Neck: supple, no JVD Effort: normal Ascultation: Bilateral: diminished breath sounds (but clear, no wheeze) Percussion: Bilateral: not dull Tactile fremitus: Bilateral: normal Cardiovascular: regular rate and rhythm Gastrointestinal: normoactive bowel sounds, soft, non-tender Extremities: edema Musculoskeletal: no deformities normal mental status, non-focal exam Results - Laboratory Findings CBC and BMP: 03/02/19 22:15 10/31/18 22:15 ABG POC ABG pH 7.322 (7.35-7.45) L 11/01/18 00:57 POC ABG pCO2 69.7 (35-45) H 11/01/18 00:57 POC ABG pO2 81 (80-105) 11/01/18 00:57 POC ABG HCO3 36.0 11/01/18 00:57 POC ABG Total CO2 38 11/01/18 00:57 POC ABG O2 Sat 94 11/01/18 00:57 Abnormal lab findings: Abnormal Labs 10/31/18 10/31/18 11/01/18 22:15 22:15 00:57 RDW 16.8 H Seg Neutrophils % 76.8 H POC ABG pH 7.322 L POC ABG pCO2 69.7 H Chloride 96.2 L Carbon Dioxide 34 H Glucose 351 H POC Glucose NT-Pro-B Natriuret Pep 1425 H 11/01/18 11/01/18 07:36 12:07 RDW Seg Neutrophils % POC ABG pH POC ABG pCO2 Chloride Carbon Dioxide Glucose POC Glucose 368 H 372 H NT-Pro-B Natriuret Pep - Diagnostic Findings Chest x-ray: image reviewed (bilateral pleural effusions with some pulmonary edema) CT scan - chest: image reviewed (diffuse infiltrates and stable left lower lobe lung lesion) Assessment and Plan 53 y/o female with acute hypoxemic respiratory failure secondary to COPD exacerbation from volume overload and continued smoking. 1. Agree with current steroid dosing 2. Suggest making lasix BID and would do 20 of IV therapy for faster work 3. Do not feel the patient is suffering from new pneumonia or worsening of older pneumonia. Most likely COPD flare secondary volume overload. Patient with no fever and no white count 4. Will add BID pulmicort and brovana therapy 5. Suggest nicotine patch 6. Encourage weight loss and smoking cessation Thank you for this consult. Will continue to follow with you.
[2018-11-01] MEDS: BROVANA NEBU IH SCH (19:57)
[2018-11-01] MEDS: PULMICORT IH SCH (19:57)
[2018-11-01] MEDS: PRAVACHOL PO SCH (21:44)
[2018-11-01] MEDS: LANTUS SUB-Q SCH (21:45)
[2018-11-01] MEDS ORDERED: NON-FORMULARY (Simvastatin 40 MG) PO SCH (22:00)
[2018-11-02] MEDS: DUONEB *Not for PRN Use IH SCH ×5 (02:01→19:53)
[2018-11-02] MEDS: SOLU-Medrol IV SCH ×3 (05:46→21:28)
[2018-11-02 06:10] LABS: Basophils % (Auto) 0.4 % (0.0-1.8); Hematocrit 39.9 % (30.3-42.9); Lymphocytes # (Auto) 0.9 K/mm3 (1.2-5.4); Lymphocytes % (Auto) 11.1 % (13.4-35.0); Mean Corpuscular HGB Conc 33 % (30-34); Mean Corpuscular Volume 87 fl (79-97); Monocytes # (Auto) 0.2 K/mm3 (0.0-0.8); Monocytes % (Auto) 2.4 % (0.0-7.3); Platelet Count 213 K/mm3 (140-440); Red Blood Count 4.56 M/mm3 (3.65-5.03); Red Cell Distribution Width 17.1 % (13.2-15.2)
[2018-11-02 06:27] LABS: BUN/Creatinine Ratio 26; Blood Urea Nitrogen 26 mg/dL (7-17); Calcium 8.5 mg/dL (8.4-10.2); Hemolysis Index 9
[2018-11-02] MEDS: BROVANA NEBU IH SCH ×3 (07:59→19:53)
[2018-11-02] MEDS: PULMICORT IH SCH ×3 (07:59→19:53)
[2018-11-02] MEDS: LASIX PO SCH (09:22)
[2018-11-02] MEDS: ZYLOPRIM PO SCH (09:23)
[2018-11-02] MEDS: GLUCOPHAGE PO SCH ×3 (09:23→16:52)
[2018-11-02] MEDS: BABY ASPIRIN PO SCH (09:23)
[2018-11-02] MEDS: COREG PO SCH ×2 (09:23→21:26)
[2018-11-02] MEDS: NORVASC PO SCH (09:23)
[2018-11-02] MEDS: BIDIL 20/37.5MG PO SCH ×2 (09:25→21:26)
[2018-11-02] MEDS: PROTONIX PO SCH (09:25)
[2018-11-02] MEDS: AMARYL PO SCH (09:25)
[2018-11-02] MEDS: LOVENOX SUB-Q SCH (09:26)
[2018-11-02] MEDS: HumaLOG SUB-Q SCH ×4 (09:27→21:25)
[2018-11-02] MEDS: SODIUM CHLORIDE FLUSH SYRINGE 10 ML IV SCH ×2 (09:47→21:31)
--- NOTE | 2018-11-02 11:18 | Progress Note ---
Assessment and Plan Assessment and plan: --Acute hypoxic respiratory failure; Secondary to COPD exacerbation, continue oxygen titrated to O2 sats more than 90%, nebulizers IV steroids, IV antibiotics, inhalation steroids, supportive care, pulmonary following --Community-acquired pneumonia multifocal; acute versus residual pneumonia Continue empiric antibiotics, follow cultures, supportive care --Left lower lobe calcified mass; pulmonary following Further evaluation as outpatient --Acute diastolic CHF; ejection fraction 50-55% , LVH. Abnormal left ventricular relaxation anti-failure medications if needed --Diabetes2; Accu-Chek sliding scale coverage and ADA diet and insulin as needed --Hypertension; moderate control continue current antihypertensives and when necessary medications --Hyperlipidemia; on statins --Obesity; BMI 37.9, advised weight reduction as tolerated --Ongoing tobacco use; smoking cessation counseling, nicotine patch as needed --DVT prophylaxis; Lovenox Present monitor the patient and adjust the management as needed Plan of care reviewed with the patient and her nurse Pulm consults and recommendations noted and appreciated Possible discharge in 1-2 days if stable History Interval history: Patient seen and examined this morning medical records reviewed Patient feels slightly better but still has some shortness of breath Alert awake oriented 3 Vital signs noted Hospitalist Physical - Constitutional Vitals: Temp Pulse Resp BP Pulse Ox 98.3 F 77 18 122/84 90 11/02/18 07:44 11/02/18 09:42 11/02/18 09:42 11/02/18 09:25 11/02/18 10:09 General appearance: Present: no acute distress, well-nourished, obese - EENT Eyes: Present: PERRL, EOM intact - Neck Neck: Present: supple, normal ROM - Respiratory Respiratory effort: normal Respiratory: bilateral: diminished, negative: rales, rhonchi, wheezing - Cardiovascular Rhythm: regular Heart Sounds: Present: S1 & S2 - Extremities Extremities: no ischemia, No edema Peripheral Pulses: within normal limits - Abdominal General gastrointestinal: soft, non-tender, non-distended, normal bowel sounds - Integumentary Integumentary: Present: clear, warm - Psychiatric Psychiatric: appropriate mood/affect, cooperative - Neurologic Neurologic: CNII-XII intact, moves all extremities Results - Labs CBC & Chem 7: 11/02/18 05:34 11/02/18 05:34 Labs: Laboratory Last Values WBC 7.8 K/mm3 (4.5-11.0) 11/02/18 05:34 RBC 4.56 M/mm3 (3.65-5.03) 11/02/18 05:34 Hgb 13.0 gm/dl (10.1-14.3) 11/02/18 05:34 Hct 39.9 % (30.3-42.9) 11/02/18 05:34 MCV 87 fl (79-97) 11/02/18 05:34 MCH 29 pg (28-32) 11/02/18 05:34 MCHC 33 % (30-34) 11/02/18 05:34 RDW 17.1 % (13.2-15.2) H 11/02/18 05:34 Plt Count 213 K/mm3 (140-440) 11/02/18 05:34 Lymph % (Auto) 11.1 % (13.4-35.0) L 11/02/18 05:34 Mitchell % (Auto) 2.4 % (0.0-7.3) 11/02/18 05:34 Eos % (Auto) 0.0 % (0.0-4.3) 11/02/18 05:34 Baso % (Auto) 0.4 % (0.0-1.8) 11/02/18 05:34 Lymph # 0.9 K/mm3 (1.2-5.4) L 11/02/18 05:34 Mitchell # 0.2 K/mm3 (0.0-0.8) 11/02/18 05:34 Eos # 0.0 K/mm3 (0.0-0.4) 11/02/18 05:34 Baso # 0.0 K/mm3 (0.0-0.1) 11/02/18 05:34 Seg Neutrophils % 86.1 % (40.0-70.0) H 11/02/18 05:34 Seg Neutrophils # 6.7 K/mm3 (1.8-7.7) 11/02/18 05:34 POC ABG pH 7.322 (7.35-7.45) L 11/01/18 00:57 POC ABG pCO2 69.7 (35-45) H 11/01/18 00:57 POC ABG pO2 81 (80-105) 11/01/18 00:57 POC ABG HCO3 36.0 11/01/18 00:57 POC ABG Total CO2 38 11/01/18 00:57 POC ABG O2 Sat 94 11/01/18 00:57 POC ABG Base Excess 10 11/01/18 00:57 FiO2 80 % 11/01/18 00:57 Sodium 135 mmol/L (137-145) L 11/02/18 05:34 Potassium 4.3 mmol/L (3.6-5.0) 11/02/18 05:34 Chloride 92.6 mmol/L (98-107) L 11/02/18 05:34 Carbon Dioxide 33 mmol/L (22-30) H 11/02/18 05:34 Anion Gap 14 mmol/L 11/02/18 05:34 BUN 26 mg/dL (7-17) H 11/02/18 05:34 Creatinine 1.0 mg/dL (0.7-1.2) 11/02/18 05:34 Estimated GFR > 60 ml/min 11/02/18 05:34 BUN/Creatinine Ratio 26 % 11/02/18 05:34 Glucose 425 mg/dL (65-100) H 11/02/18 05:34 POC Glucose 326 (70-105) H 11/02/18 07:50 Calcium 8.5 mg/dL (8.4-10.2) 11/02/18 05:34 Troponin T < 0.010 ng/mL (0.00-0.029) 10/31/18 22:15 NT-Pro-B Natriuret Pep 1425 pg/mL (0-900) H 10/31/18 22:15
--- NOTE | 2018-11-02 13:33 | Progress Note ---
Assessment and Plan 53 y/o female with acute hypoxemic respiratory failure secondary to COPD exacerbation from volume overload and continued smoking. 1. Agree with current steroid dosing 2. I changed lasix to 20 IV BID 3. Do not feel the patient is suffering from new pneumonia or worsening of older pneumonia. Most likely COPD flare secondary volume overload. Patient with no fever and no white count 4. Continue BID pulmicort and brovana therapy 5. Suggest nicotine patch 6. Encourage weight loss and smoking cessation Thank you for this consult. Will continue to follow with you. Subjective Date of service: 11/02/18 Interval history: Per RT at patient request, changed to NC. Currently on 9 liters. Appears in mild distress but stable. Sitting up in chair out of bed. Objective Vital Signs - 12hr 11/02/18 11/02/18 11/02/18 04:10 04:44 07:44 Temperature 97.3 F L 98.3 F Pulse Rate 77 77 87 Pulse Rate [ Anterior Bilateral Throughout] Respiratory 19 21 20 Rate Respiratory Rate [Anterior Bilateral Throughout] Blood Pressure 108/62 122/84 O2 Sat by Pulse 96 98 93 Oximetry 11/02/18 11/02/18 11/02/18 09:23 09:25 09:42 Temperature Pulse Rate 87 87 Pulse Rate [ 89 77 Anterior Bilateral Throughout] Respiratory Rate Respiratory 16 18 Rate [Anterior Bilateral Throughout] Blood Pressure 122/84 122/84 O2 Sat by Pulse Oximetry 11/02/18 11/02/18 11/02/18 10:09 12:16 12:19 Temperature 97.9 F Pulse Rate 96 H 86 Pulse Rate [ Anterior Bilateral Throughout] Respiratory 20 Rate Respiratory Rate [Anterior Bilateral Throughout] Blood Pressure 118/73 O2 Sat by Pulse 90 90 Oximetry Constitutional: no acute distress, alert Eyes: non-icteric ENT: oropharynx moist Neck: supple, no JVD Effort: normal Ascultation: Bilateral: diminished breath sounds (but clear, no wheeze) Percussion: Bilateral: not dull Tactile fremitus: Bilateral: normal Cardiovascular: regular rate and rhythm Gastrointestinal: normoactive bowel sounds, soft, non-tender Extremities: edema Neurologic: normal mental status, non-focal exam CBC and BMP: 11/02/18 05:34 11/02/18 05:34 ABG, PT/INR, D-dimer: ABG POC ABG pH 7.322 (7.35-7.45) L 11/01/18 00:57 POC ABG pCO2 69.7 (35-45) H 11/01/18 00:57 POC ABG pO2 81 (80-105) 11/01/18 00:57 POC ABG HCO3 36.0 11/01/18 00:57 POC ABG Total CO2 38 11/01/18 00:57 POC ABG O2 Sat 94 11/01/18 00:57 Abnormal lab findings: Abnormal Labs 10/31/18 10/31/18 11/01/18 22:15 22:15 00:57 RDW 16.8 H Lymph % (Auto) Lymph # Seg Neutrophils % 76.8 H POC ABG pH 7.322 L POC ABG pCO2 69.7 H Sodium Chloride 96.2 L Carbon Dioxide 34 H BUN Glucose 351 H POC Glucose NT-Pro-B Natriuret Pep 1425 H 11/01/18 11/01/18 11/01/18 07:36 12:07 15:57 RDW Lymph % (Auto) Lymph # Seg Neutrophils % POC ABG pH POC ABG pCO2 Sodium Chloride Carbon Dioxide BUN Glucose POC Glucose 368 H 372 H 376 H NT-Pro-B Natriuret Pep 11/01/18 11/02/18 11/02/18 21:24 05:34 05:34 RDW 17.1 H Lymph % (Auto) 11.1 L Lymph # 0.9 L Seg Neutrophils % 86.1 H POC ABG pH POC ABG pCO2 Sodium 135 L Chloride 92.6 L Carbon Dioxide 33 H BUN 26 H Glucose 425 H POC Glucose 432 H NT-Pro-B Natriuret Pep 11/02/18 11/02/18 07:50 12:24 RDW Lymph % (Auto) Lymph # Seg Neutrophils % POC ABG pH POC ABG pCO2 Sodium Chloride Carbon Dioxide BUN Glucose POC Glucose 326 H 309 H NT-Pro-B Natriuret Pep
[2018-11-02] MEDS: LASIX IV SCH (16:59)
[2018-11-02] MEDS: LANTUS SUB-Q SCH (21:26)
[2018-11-02] MEDS: PRAVACHOL PO SCH (21:27)
[2018-11-03] MEDS: DUONEB *Not for PRN Use IH SCH ×5 (02:35→21:43)
[2018-11-03] MEDS: LASIX IV SCH ×2 (05:29→17:26)
[2018-11-03] MEDS: SOLU-Medrol IV SCH ×3 (05:29→21:43)
[2018-11-03 06:03] LABS: Hematocrit 40.9 % (30.3-42.9); Hemoglobin 13.2 gm/dl (10.1-14.3); Mean Corpuscular HGB Conc 32 % (30-34); Mean Corpuscular Volume 88 fl (79-97); Platelet Count 222 K/mm3 (140-440); Red Blood Count 4.67 M/mm3 (3.65-5.03); Red Cell Distribution Width 16.4 % (13.2-15.2)
[2018-11-03 06:23] LABS: BUN/Creatinine Ratio 31; Blood Urea Nitrogen 28 mg/dL (7-17); Calcium 8.7 mg/dL (8.4-10.2); Hemolysis Index 11
[2018-11-03] MEDS ORDERED: HumuLIN R SUB-Q NR (07:09)
[2018-11-03] MEDS: HumaLOG SUB-Q SCH ×4 (08:57→21:43)
[2018-11-03] MEDS: GLUCOPHAGE PO SCH ×2 (08:58→17:26)
[2018-11-03] MEDS: AMARYL PO SCH (08:58)
[2018-11-03 09:13] LABS: Basophils % (Manual) 0 % (0.0-1.8); Eosinophils % (Manual) 0 % (0.0-4.3); Total Cells Counted 100
[2018-11-03 09:14] LABS: Anisocytosis 1+; Poikilocytosis 1+
[2018-11-03 09:15] LABS: Macrocytosis Rare; Platelet Estimate Consistent w Auto
[2018-11-03] MEDS: COREG PO SCH ×2 (09:41→21:43)
[2018-11-03] MEDS: NORVASC PO SCH (09:41)
[2018-11-03] MEDS: ZYLOPRIM PO SCH (09:41)
[2018-11-03] MEDS: PROTONIX PO SCH (09:41)
[2018-11-03] MEDS: BIDIL 20/37.5MG PO SCH ×2 (09:41→21:43)
[2018-11-03] MEDS: BABY ASPIRIN PO SCH (09:41)
[2018-11-03] MEDS: LOVENOX SUB-Q SCH (09:42)
[2018-11-03] MEDS: SODIUM CHLORIDE FLUSH SYRINGE 10 ML IV SCH ×2 (09:42→21:44)
[2018-11-03] MEDS: PULMICORT IH SCH ×2 (10:21→21:43)
[2018-11-03] MEDS: BROVANA NEBU IH SCH ×2 (10:21→21:43)
--- NOTE | 2018-11-03 10:26 | Progress Note ---
Assessment and Plan Assessment and plan: --Uncontrolled blood sugars; partly secondary to steroid use Accu-Chek sliding scale coverage and ADA diet, add a.m. dose of Lantus Check A1c, closely monitor blood sugars --Acute hypoxic respiratory failure; Secondary to COPD exacerbation, continue oxygen titrated to O2 sats more than 90%, nebulizers IV steroids, IV antibiotics, inhalation steroids, supportive care, pulmonary following --Community-acquired pneumonia multifocal; acute versus residual pneumonia Continue empiric antibiotics, follow cultures, supportive care --Left lower lobe calcified mass; pulmonary following Further evaluation as outpatient --Acute diastolic CHF; ejection fraction 50-55% , LVH. Abnormal left amos tricular relaxation anti-failure medications if needed --Diabetes2; Accu-Chek sliding scale coverage and ADA diet and insulin as needed --Hypertension; moderate control continue current antihypertensives and when necessary medications --Hyperlipidemia; on statins --Obesity; BMI 37.9, advised weight reduction as tolerated --Ongoing tobacco use; smoking cessation counseling, nicotine patch as needed --DVT prophylaxis; Lovenox Present monitor the patient and adjust the management as needed Plan of care reviewed with the patient and her nurse Pulm consults and recommendations noted and appreciated Possible discharge in 1-2 days if stable History Interval history: Patient seen and examined medical records reviewed No new events reported by the nursing staff Patient's blood sugars are very high secondary to noncompliance with food Patient takes outside food Vital signs noted Hospitalist Physical - Constitutional Vitals: Temp Pulse Resp BP Pulse Ox 98.3 F 92 H 25 H 105/57 95 11/02/18 23:33 11/03/18 00:35 11/03/18 00:35 11/02/18 23:33 11/03/18 10:23 General appearance: Present: no acute distress, well-nourished, obese - EENT Eyes: Present: PERRL, EOM intact - Neck Neck: Present: supple, normal ROM - Respiratory Respiratory effort: normal Respiratory: bilateral: diminished, negative: rales, rhonchi, wheezing - Cardiovascular Rhythm: regular Heart Sounds: Present: S1 & S2 - Extremities Extremities: no ischemia, No edema - Abdominal General gastrointestinal: soft, non-tender, non-distended, normal bowel sounds - Integumentary Integumentary: Present: clear, warm - Psychiatric Psychiatric: appropriate mood/affect, cooperative - Neurologic Neurologic: CNII-XII intact, moves all extremities Results - Labs CBC & Chem 7: 11/03/18 05:06 11/03/18 05:06 Labs: Laboratory Last Values WBC 10.9 K/mm3 (4.5-11.0) 11/03/18 05:06 RBC 4.67 M/mm3 (3.65-5.03) 11/03/18 05:06 Hgb 13.2 gm/dl (10.1-14.3) 11/03/18 05:06 Hct 40.9 % (30.3-42.9) 11/03/18 05:06 MCV 88 fl (79-97) 11/03/18 05:06 MCH 28 pg (28-32) 11/03/18 05:06 MCHC 32 % (30-34) 11/03/18 05:06 RDW 16.4 % (13.2-15.2) H 11/03/18 05:06 Plt Count 222 K/mm3 (140-440) 11/03/18 05:06 Lymph % (Auto) 11.1 % (13.4-35.0) L 11/02/18 05:34 Leon % (Auto) 2.4 % (0.0-7.3) 11/02/18 05:34 Eos % (Auto) 0.0 % (0.0-4.3) 11/02/18 05:34 Baso % (Auto) 0.4 % (0.0-1.8) 11/02/18 05:34 Lymph # 0.9 K/mm3 (1.2-5.4) L 11/02/18 05:34 Leon # 0.2 K/mm3 (0.0-0.8) 11/02/18 05:34 Eos # 0.0 K/mm3 (0.0-0.4) 11/02/18 05:34 Baso # 0.0 K/mm3 (0.0-0.1) 11/02/18 05:34 Add Manual Diff Complete 11/03/18 05:06 Total Counted 100 11/03/18 05:06 Seg Neutrophils % [employer] 11/03/18 05:06 Seg Neuts % (Manual) 92.0 % (40.0-70.0) H 11/03/18 05:06 Band Neutrophils % 0 % 11/03/18 05:06 Lymphocytes % (Manual) 7.0 % (13.4-35.0) L 11/03/18 05:06 Reactive Lymphs % (Man) 0 % 11/03/18 05:06 Monocytes % (Manual) 1.0 % (0.0-7.3) 11/03/18 05:06 Eosinophils % (Manual) 0 % (0.0-4.3) 11/03/18 05:06 Basophils % (Manual) 0 % (0.0-1.8) 11/03/18 05:06 Metamyelocytes % 0 % 11/03/18 05:06 Myelocytes % 0 % 11/03/18 05:06 Promyelocytes % 0 % 11/03/18 05:06 Blast Cells % 0 % 11/03/18 05:06 Nucleated RBC % Not Reportable 11/03/18 05:06 Seg Neutrophils # 6.7 K/mm3 (1.8-7.7) 11/02/18 05:34 Seg Neutrophils # Man 10.0 K/mm3 (1.8-7.7) H 11/03/18 05:06 Band Neutrophils # 0.0 K/mm3 11/03/18 05:06 Lymphocytes # (Manual) 0.8 K/mm3 (1.2-5.4) L 11/03/18 05:06 Abs React Lymphs (Man) 0.0 K/mm3 11/03/18 05:06 Monocytes # (Manual) 0.1 K/mm3 (0.0-0.8) 11/03/18 05:06 Eosinophils # (Manual) 0.0 K/mm3 (0.0-0.4) 11/03/18 05:06 Basophils # (Manual) 0.0 K/mm3 (0.0-0.1) 11/03/18 05:06 Metamyelocytes # 0.0 K/mm3 11/03/18 05:06 Myelocytes # 0.0 K/mm3 11/03/18 05:06 Promyelocytes # 0.0 K/mm3 11/03/18 05:06 Blast Cells # 0.0 K/mm3 11/03/18 05:06 WBC Morphology Not Reportable 11/03/18 05:06 Hypersegmented Neuts Not Reportable 11/03/18 05:06 Hyposegmented Neuts Not Reportable 11/03/18 05:06 Hypogranular Neuts Not Reportable 11/03/18 05:06 Smudge Cells Not Reportable 11/03/18 05:06 Toxic Granulation Not Reportable 11/03/18 05:06 Toxic Vacuolation Not Reportable 11/03/18 05:06 Dohle Bodies Not Reportable 11/03/18 05:06 Pelger-Huet Anomaly Not Reportable 11/03/18 05:06 Charles Rods Not Reportable 11/03/18 05:06 Platelet Estimate Consistent w auto 11/03/18 05:06 Clumped Platelets Not Reportable 11/03/18 05:06 Plt Clumps, EDTA Not Reportable 11/03/18 05:06 Large Platelets Not Reportable 11/03/18 05:06 Giant Platelets Not Reportable 11/03/18 05:06 Platelet Satelliting Not Reportable 11/03/18 05:06 Plt Morphology Comment Not Reportable 11/03/18 05:06 RBC Morphology Not Reportable 11/03/18 05:06 Dimorphic RBCs Not Reportable 11/03/18 05:06 Polychromasia Not Reportable 11/03/18 05:06 Hypochromasia Not Reportable 11/03/18 05:06 Poikilocytosis 1+ 11/03/18 05:06 Anisocytosis 1+ 11/03/18 05:06 Microcytosis Not Reportable 11/03/18 05:06 Macrocytosis Rare 11/03/18 05:06 Spherocytes Not Reportable 11/03/18 05:06 Pappenheimer Bodies Not Reportable 11/03/18 05:06 Sickle Cells Not Reportable 11/03/18 05:06 Target Cells Not Reportable 11/03/18 05:06 Tear Drop Cells Not Reportable 11/03/18 05:06 Ovalocytes Not Reportable 11/03/18 05:06 Helmet Cells Not Reportable 11/03/18 05:06 Huynh-Malakoff Bodies Not Reportable 11/03/18 05:06 Broadway Rings Not Reportable 11/03/18 05:06 Maia Cells Not Reportable 11/03/18 05:06 Bite Cells Not Reportable 11/03/18 05:06 Crenated Cell Not Reportable 11/03/18 05:06 Elliptocytes Not Reportable 11/03/18 05:06 Acanthocytes (Spur) Not Reportable 11/03/18 05:06 Rouleaux Not Reportable 11/03/18 05:06 Hemoglobin C Crystals Not Reportable 11/03/18 05:06 Schistocytes Not Reportable 11/03/18 05:06 Malaria parasites Not Reportable 11/03/18 05:06 Jason Bodies Not Reportable 11/03/18 05:06 Hem Pathologist Commnt No 11/03/18 05:06 POC ABG pH 7.322 (7.35-7.45) L 11/01/18 00:57 POC ABG pCO2 69.7 (35-45) H 11/01/18 00:57 POC ABG pO2 81 (80-105) 11/01/18 00:57 POC ABG HCO3 36.0 11/01/18 00:57 POC ABG Total CO2 38 11/01/18 00:57 POC ABG O2 Sat 94 11/01/18 00:57 POC ABG Base Excess 10 11/01/18 00:57 FiO2 80 % 11/01/18 00:57 Sodium 133 mmol/L (137-145) L 11/03/18 05:06 Potassium 4.3 mmol/L (3.6-5.0) 11/03/18 05:06 Chloride 91.7 mmol/L (98-107) L 11/03/18 05:06 Carbon Dioxide 33 mmol/L (22-30) H 11/03/18 05:06 Anion Gap 13 mmol/L 11/03/18 05:06 BUN 28 mg/dL (7-17) H 11/03/18 05:06 Creatinine 0.9 mg/dL (0.7-1.2) 11/03/18 05:06 Estimated GFR > 60 ml/min 11/03/18 05:06 BUN/Creatinine Ratio 31 % 11/03/18 05:06 Glucose 514 mg/dL (65-100) H* 11/03/18 05:06 POC Glucose 395 (70-105) H 11/03/18 08:21 Calcium 8.7 mg/dL (8.4-10.2) 11/03/18 05:06 Troponin T < 0.010 ng/mL (0.00-0.029) 10/31/18 22:15 NT-Pro-B Natriuret Pep 1425 pg/mL (0-900) H 10/31/18 22:15
--- NOTE | 2018-11-03 11:46 | Progress Note ---
Assessment and Plan Status post acute hypoxemic respiratory failure COPD exacerbation from volume overload Tobacco abuse 2.1 x 2 centimeter S/P and left lower lobe. Some calcifications noted. Malignancy is suspected per radiology report. Previously ordered to have PET scan outpatient. Not completed Recommendations Gentle diuretics Continue nebulizer therapy Continue oxygen support, wean down as tolerated Although PET scan is not available, estimate SPN malignancy risks at 48%. CT- guided needle biopsy evaluation recommended, discussed with patient Subjective Date of service: 11/03/18 Principal diagnosis: acute hypoxemic respiratory failure, COPD exacerbation ,SPN,tobacco abuse Interval history: On recliner. feels better this morning Objective Vital Signs - 12hr 11/03/18 11/03/18 11/03/18 00:35 10:23 10:25 Pulse Rate 92 H Pulse Rate [ 78 Anterior Bilateral Throughout] Respiratory 25 H Rate Respiratory 16 Rate [Anterior Bilateral Throughout] O2 Sat by Pulse 96 95 Oximetry 11/03/18 10:44 Pulse Rate Pulse Rate [ 78 Anterior Bilateral Throughout] Respiratory Rate Respiratory 18 Rate [Anterior Bilateral Throughout] O2 Sat by Pulse Oximetry Constitutional: no acute distress, alert Eyes: non-icteric ENT: oropharynx moist Neck: supple, no JVD Effort: normal Ascultation: Bilateral: clear, diminished breath sounds ( ) Percussion: Bilateral: not dull Tactile fremitus: Bilateral: normal Cardiovascular: regular rate and rhythm Gastrointestinal: normoactive bowel sounds, soft, non-tender Extremities: no cyanosis, no edema, pink and warm, edema Neurologic: normal mental status, non-focal exam CBC and BMP: 11/03/18 05:06 11/03/18 05:06 ABG, PT/INR, D-dimer: ABG POC ABG pH 7.322 (7.35-7.45) L 11/01/18 00:57 POC ABG pCO2 69.7 (35-45) H 11/01/18 00:57 POC ABG pO2 81 (80-105) 11/01/18 00:57 POC ABG HCO3 36.0 11/01/18 00:57 POC ABG Total CO2 38 11/01/18 00:57 POC ABG O2 Sat 94 11/01/18 00:57 Abnormal lab findings: Abnormal Labs 10/31/18 10/31/18 11/01/18 22:15 22:15 00:57 RDW 16.8 H Lymph % (Auto) Lymph # Seg Neutrophils % 76.8 H Seg Neuts % (Manual) Lymphocytes % (Manual) Seg Neutrophils # Man Lymphocytes # (Manual) POC ABG pH 7.322 L POC ABG pCO2 69.7 H Sodium Chloride 96.2 L Carbon Dioxide 34 H BUN Glucose 351 H POC Glucose Hemoglobin A1c NT-Pro-B Natriuret Pep 1425 H 11/01/18 11/01/18 11/01/18 07:36 12:07 15:57 RDW Lymph % (Auto) Lymph # Seg Neutrophils % Seg Neuts % (Manual) Lymphocytes % (Manual) Seg Neutrophils # Man Lymphocytes # (Manual) POC ABG pH POC ABG pCO2 Sodium Chloride Carbon Dioxide BUN Glucose POC Glucose 368 H 372 H 376 H Hemoglobin A1c NT-Pro-B Natriuret Pep 11/01/18 11/02/18 11/02/18 21:24 05:34 05:34 RDW 17.1 H Lymph % (Auto) 11.1 L Lymph # 0.9 L Seg Neutrophils % 86.1 H Seg Neuts % (Manual) Lymphocytes % (Manual) Seg Neutrophils # Man Lymphocytes # (Manual) POC ABG pH POC ABG pCO2 Sodium 135 L Chloride 92.6 L Carbon Dioxide 33 H BUN 26 H Glucose 425 H POC Glucose 432 H Hemoglobin A1c NT-Pro-B Natriuret Pep 11/02/18 11/02/18 11/02/18 07:50 12:24 16:23 RDW Lymph % (Auto) Lymph # Seg Neutrophils % Seg Neuts % (Manual) Lymphocytes % (Manual) Seg Neutrophils # Man Lymphocytes # (Manual) POC ABG pH POC ABG pCO2 Sodium Chloride Carbon Dioxide BUN Glucose POC Glucose 326 H 309 H 417 H Hemoglobin A1c NT-Pro-B Natriuret Pep 11/02/18 11/03/18 11/03/18 21:24 05:06 05:06 RDW 16.4 H Lymph % (Auto) Lymph # Seg Neutrophils % Seg Neuts % (Manual) 92.0 H Lymphocytes % (Manual) 7.0 L Seg Neutrophils # Man 10.0 H Lymphocytes # (Manual) 0.8 L POC ABG pH POC ABG pCO2 Sodium 133 L Chloride 91.7 L Carbon Dioxide 33 H BUN 28 H Glucose 514 H* POC Glucose 305 H Hemoglobin A1c NT-Pro-B Natriuret Pep 11/03/18 11/03/18 05:06 08:21 RDW Lymph % (Auto) Lymph # Seg Neutrophils % Seg Neuts % (Manual) Lymphocytes % (Manual) Seg Neutrophils # Man Lymphocytes # (Manual) POC ABG pH POC ABG pCO2 Sodium Chloride Carbon Dioxide BUN Glucose POC Glucose 395 H Hemoglobin A1c 12.3 H NT-Pro-B Natriuret Pep CT scan - chest: report reviewed, image reviewed
[2018-11-03] MEDS: LANTUS SUB-Q SCH ×2 (12:54→21:43)
[2018-11-03] MEDS: PRAVACHOL PO SCH (21:44)
[2018-11-04] MEDS: DUONEB *Not for PRN Use IH SCH ×4 (02:25→20:30)
[2018-11-04] MEDS: LASIX IV SCH ×2 (06:59→18:40)
[2018-11-04] MEDS: PULMICORT IH SCH ×2 (08:17→20:30)
[2018-11-04] MEDS: BROVANA NEBU IH SCH ×2 (08:17→20:30)
[2018-11-04 08:53] LABS: Alanine Aminotransferase 15 units/L (7-56); Albumin 2.7 g/dL (3.9-5); BUN/Creatinine Ratio 34; Blood Urea Nitrogen 31 mg/dL (7-17); Calcium 8.5 mg/dL (8.4-10.2); Hemolysis Index 5
[2018-11-04] MEDS: LANTUS SUB-Q SCH ×2 (08:59→21:32)
[2018-11-04] MEDS: GLUCOPHAGE PO SCH ×2 (08:59→18:40)
[2018-11-04] MEDS: HumaLOG SUB-Q SCH ×4 (08:59→21:33)
[2018-11-04] MEDS: BABY ASPIRIN PO SCH (09:00)
[2018-11-04] MEDS: LOVENOX SUB-Q SCH (09:00)
[2018-11-04] MEDS: COREG PO SCH ×2 (09:00→21:32)
[2018-11-04] MEDS: BIDIL 20/37.5MG PO SCH ×2 (09:00→21:32)
[2018-11-04] MEDS: NORVASC PO SCH (09:00)
[2018-11-04] MEDS: PROTONIX PO SCH (09:00)
[2018-11-04] MEDS: SODIUM CHLORIDE FLUSH SYRINGE 10 ML IV SCH ×2 (09:02→21:33)
[2018-11-04] MEDS: ZYLOPRIM PO SCH (09:04)
[2018-11-04] MEDS: SOLU-Medrol IV SCH ×2 (09:05→21:32)
[2018-11-04] MEDS: AMARYL PO SCH (09:05)
--- NOTE | 2018-11-04 11:09 | Progress Note ---
Assessment and Plan Status post acute hypoxemic respiratory failure COPD exacerbation from volume overload.Controlled Tobacco abuse 2.1 x 2 centimeter S/P and left lower lobe. Some calcifications noted. Malignancy is suspected per radiology report. Previously ordered to have PET scan outpatient. Not completed Recommendations Gentle diuretics Ambulate patient and monitor oximetry. Add portable oxygen 2 L/m if oximetry below 89% on room air. Update influenza and pneumonia vaccination, if not completed already. Candidate for pulmonary rehabilitation Outpatient pulmonary evaluation, PFT workup for COPD severity stratification Inhaler therapy including LAMA, LABA/ICS therapy, per GOLD guidelines Nutritional support, weight reduction diet. Try to review last PET scan, but not available, estimate SPN malignancy risks at 48%. CT-guided needle biopsy evaluation recommended versus VATS resection, discussed with patient. Patient went to think it over Subjective Date of service: 11/04/18 Principal diagnosis: acute hypoxemic respiratory failure, COPD exacerbation ,SPN,tobacco abuse Interval history: No events overnight. no SOB, feels better. Objective Vital Signs - 12hr 11/03/18 11/04/18 11/04/18 23:45 00:23 02:00 Temperature 97.0 F L Pulse Rate 75 87 91 H Pulse Rate [ Anterior Bilateral Throughout] Pulse Rate [ Bilateral] Respiratory 20 18 Rate Respiratory Rate [Anterior Bilateral Throughout] Respiratory Rate [Bilateral ] Blood Pressure 113/65 O2 Sat by Pulse 95 97 Oximetry 11/04/18 11/04/18 11/04/18 03:28 08:17 08:18 Temperature 98.0 F Pulse Rate 72 Pulse Rate [ 84 Anterior Bilateral Throughout] Pulse Rate [ 82 Bilateral] Respiratory 20 Rate Respiratory 16 Rate [Anterior Bilateral Throughout] Respiratory 16 Rate [Bilateral ] Blood Pressure 107/71 O2 Sat by Pulse 98 98 Oximetry 11/04/18 08:41 Temperature 98.2 F Pulse Rate 65 Pulse Rate [ Anterior Bilateral Throughout] Pulse Rate [ Bilateral] Respiratory 20 Rate Respiratory Rate [Anterior Bilateral Throughout] Respiratory Rate [Bilateral ] Blood Pressure 116/78 O2 Sat by Pulse 97 Oximetry Constitutional: no acute distress, alert Eyes: non-icteric ENT: oropharynx moist Neck: supple, no JVD Effort: normal Ascultation: Bilateral: clear, diminished breath sounds ( ) Percussion: Bilateral: not dull Tactile fremitus: Bilateral: normal Cardiovascular: regular rate and rhythm Gastrointestinal: normoactive bowel sounds, soft, non-tender Extremities: no cyanosis, no edema, pink and warm, edema Neurologic: normal mental status, non-focal exam CBC and BMP: 11/03/18 05:06 11/04/18 05:13 ABG, PT/INR, D-dimer: ABG POC ABG pH 7.322 (7.35-7.45) L 11/01/18 00:57 POC ABG pCO2 69.7 (35-45) H 11/01/18 00:57 POC ABG pO2 81 (80-105) 11/01/18 00:57 POC ABG HCO3 36.0 11/01/18 00:57 POC ABG Total CO2 38 11/01/18 00:57 POC ABG O2 Sat 94 11/01/18 00:57 Abnormal lab findings: Abnormal Labs 10/31/18 10/31/18 11/01/18 22:15 22:15 00:57 RDW 16.8 H Lymph % (Auto) Lymph # Seg Neutrophils % 76.8 H Seg Neuts % (Manual) Lymphocytes % (Manual) Seg Neutrophils # Man Lymphocytes # (Manual) POC ABG pH 7.322 L POC ABG pCO2 69.7 H Sodium Chloride 96.2 L Carbon Dioxide 34 H BUN Glucose 351 H POC Glucose Hemoglobin A1c NT-Pro-B Natriuret Pep 1425 H Total Protein Albumin 11/01/18 11/01/18 11/01/18 07:36 12:07 15:57 RDW Lymph % (Auto) Lymph # Seg Neutrophils % Seg Neuts % (Manual) Lymphocytes % (Manual) Seg Neutrophils # Man Lymphocytes # (Manual) POC ABG pH POC ABG pCO2 Sodium Chloride Carbon Dioxide BUN Glucose POC Glucose 368 H 372 H 376 H Hemoglobin A1c NT-Pro-B Natriuret Pep Total Protein Albumin 11/01/18 11/02/18 11/02/18 21:24 05:34 05:34 RDW 17.1 H Lymph % (Auto) 11.1 L Lymph # 0.9 L Seg Neutrophils % 86.1 H Seg Neuts % (Manual) Lymphocytes % (Manual) Seg Neutrophils # Man Lymphocytes # (Manual) POC ABG pH POC ABG pCO2 Sodium 135 L Chloride 92.6 L Carbon Dioxide 33 H BUN 26 H Glucose 425 H POC Glucose 432 H Hemoglobin A1c NT-Pro-B Natriuret Pep Total Protein Albumin 11/02/18 11/02/18 11/02/18 07:50 12:24 16:23 RDW Lymph % (Auto) Lymph # Seg Neutrophils % Seg Neuts % (Manual) Lymphocytes % (Manual) Seg Neutrophils # Man Lymphocytes # (Manual) POC ABG pH POC ABG pCO2 Sodium Chloride Carbon Dioxide BUN Glucose POC Glucose 326 H 309 H 417 H Hemoglobin A1c NT-Pro-B Natriuret Pep Total Protein Albumin 11/02/18 11/03/18 11/03/18 21:24 05:06 05:06 RDW 16.4 H Lymph % (Auto) Lymph # Seg Neutrophils % Seg Neuts % (Manual) 92.0 H Lymphocytes % (Manual) 7.0 L Seg Neutrophils # Man 10.0 H Lymphocytes # (Manual) 0.8 L POC ABG pH POC ABG pCO2 Sodium 133 L Chloride 91.7 L Carbon Dioxide 33 H BUN 28 H Glucose 514 H* POC Glucose 305 H Hemoglobin A1c NT-Pro-B Natriuret Pep Total Protein Albumin 11/03/18 11/03/18 11/03/18 05:06 08:21 11:46 RDW Lymph % (Auto) Lymph # Seg Neutrophils % Seg Neuts % (Manual) Lymphocytes % (Manual) Seg Neutrophils # Man Lymphocytes # (Manual) POC ABG pH POC ABG pCO2 Sodium Chloride Carbon Dioxide BUN Glucose POC Glucose 395 H 295 H Hemoglobin A1c 12.3 H NT-Pro-B Natriuret Pep Total Protein Albumin 11/03/18 11/03/18 11/04/18 15:32 20:52 05:13 RDW Lymph % (Auto) Lymph # Seg Neutrophils % Seg Neuts % (Manual) Lymphocytes % (Manual) Seg Neutrophils # Man Lymphocytes # (Manual) POC ABG pH POC ABG pCO2 Sodium 135 L Chloride 93.3 L Carbon Dioxide 32 H BUN 31 H Glucose 250 H POC Glucose 199 H 362 H Hemoglobin A1c NT-Pro-B Natriuret Pep Total Protein 6.0 L Albumin 2.7 L 11/04/18 07:37 RDW Lymph % (Auto) Lymph # Seg Neutrophils % Seg Neuts % (Manual) Lymphocytes % (Manual) Seg Neutrophils # Man Lymphocytes # (Manual) POC ABG pH POC ABG pCO2 Sodium Chloride Carbon Dioxide BUN Glucose POC Glucose 205 H Hemoglobin A1c NT-Pro-B Natriuret Pep Total Protein Albumin
--- NOTE | 2018-11-04 16:54 | Progress Note ---
Assessment and Plan Assessment and plan: --Uncontrolled blood sugars; moderate control today Accu-Chek sliding scale coverage and ADA diet, add a.m. dose of Lantus Check A1c, closely monitor blood sugars --Acute hypoxic respiratory failure; Secondary to COPD exacerbation, continue oxygen titrated to O2 sats more than 90%, nebulizers IV steroids, IV antibiotics, inhalation steroids, supportive care, pulmonary following --Community-acquired pneumonia multifocal; acute versus residual pneumonia Continue empiric antibiotics, follow cultures, supportive care --Left lower lobe calcified mass; pulmonary following Further evaluation as outpatient --Acute diastolic CHF; ejection fraction 50-55% , LVH. Abnormal left ventricular relaxation anti-failure medications if needed --Diabetes2; Accu-Chek sliding scale coverage and ADA diet and insulin as needed --Hypertension; moderate control continue current antihypertensives and when necessary medications --Hyperlipidemia; on statins --Obesity; BMI 37.9, advised weight reduction as tolerated --Ongoing tobacco use; smoking cessation counseling, nicotine patch as needed --DVT prophylaxis; Lovenox Present monitor the patient and adjust the management as needed Plan of care reviewed with the patient and her nurse Pulm consults and recommendations noted and appreciated Possible discharge in 1-2 days if stable History Interval history: Sincerely and examined medical records reviewed Slightly better no new complaints Vital signs noted Hospitalist Physical - Constitutional Vitals: Temp Pulse Resp BP Pulse Ox 97.9 F 63 20 118/70 92 11/04/18 15:43 11/04/18 15:43 11/04/18 15:43 11/04/18 15:43 11/04/18 15:43 General appearance: Present: no acute distress, well-nourished, obese - EENT Eyes: Present: PERRL, EOM intact - Neck Neck: Present: supple, normal ROM - Respiratory Respiratory effort: normal Respiratory: bilateral: diminished, rhonchi, negative: rales, wheezing - Cardiovascular Rhythm: regular Heart Sounds: Present: S1 & S2 - Extremities Extremities: no ischemia, No edema - Abdominal General gastrointestinal: soft, non-tender, non-distended, normal bowel sounds - Integumentary Integumentary: Present: clear, warm - Psychiatric Psychiatric: appropriate mood/affect, cooperative - Neurologic Neurologic: CNII-XII intact, moves all extremities Results - Labs CBC & Chem 7: 11/03/18 05:06 11/04/18 05:13 Labs: Laboratory Last Values WBC 10.9 K/mm3 (4.5-11.0) 11/03/18 05:06 RBC 4.67 M/mm3 (3.65-5.03) 11/03/18 05:06 Hgb 13.2 gm/dl (10.1-14.3) 11/03/18 05:06 Hct 40.9 % (30.3-42.9) 11/03/18 05:06 MCV 88 fl (79-97) 11/03/18 05:06 MCH 28 pg (28-32) 11/03/18 05:06 MCHC 32 % (30-34) 11/03/18 05:06 RDW 16.4 % (13.2-15.2) H 11/03/18 05:06 Plt Count 222 K/mm3 (140-440) 11/03/18 05:06 Lymph % (Auto) 11.1 % (13.4-35.0) L 11/02/18 05:34 [place] % (Auto) 2.4 % (0.0-7.3) 11/02/18 05:34 Eos % (Auto) 0.0 % (0.0-4.3) 11/02/18 05:34 Baso % (Auto) 0.4 % (0.0-1.8) 11/02/18 05:34 Lymph # 0.9 K/mm3 (1.2-5.4) L 11/02/18 05:34 [place] # 0.2 K/mm3 (0.0-0.8) 11/02/18 05:34 Eos # 0.0 K/mm3 (0.0-0.4) 11/02/18 05:34 Baso # 0.0 K/mm3 (0.0-0.1) 11/02/18 05:34 Add Manual Diff Complete 11/03/18 05:06 Total Counted 100 11/03/18 05:06 Seg Neutrophils % Passenger Rate Clerk 11/03/18 05:06 Seg Neuts % (Manual) 92.0 % (40.0-70.0) H 11/03/18 05:06 Band Neutrophils % 0 % 11/03/18 05:06 Lymphocytes % (Manual) 7.0 % (13.4-35.0) L 11/03/18 05:06 Reactive Lymphs % (Man) 0 % 11/03/18 05:06 Monocytes % (Manual) 1.0 % (0.0-7.3) 11/03/18 05:06 Eosinophils % (Manual) 0 % (0.0-4.3) 11/03/18 05:06 Basophils % (Manual) 0 % (0.0-1.8) 11/03/18 05:06 Metamyelocytes % 0 % 11/03/18 05:06 Myelocytes % 0 % 11/03/18 05:06 Promyelocytes % 0 % 11/03/18 05:06 Blast Cells % 0 % 11/03/18 05:06 Nucleated RBC % Not Reportable 11/03/18 05:06 Seg Neutrophils # 6.7 K/mm3 (1.8-7.7) 11/02/18 05:34 Seg Neutrophils # Man 10.0 K/mm3 (1.8-7.7) H 11/03/18 05:06 Band Neutrophils # 0.0 K/mm3 11/03/18 05:06 Lymphocytes # (Manual) 0.8 K/mm3 (1.2-5.4) L 11/03/18 05:06 Abs React Lymphs (Man) 0.0 K/mm3 11/03/18 05:06 Monocytes # (Manual) 0.1 K/mm3 (0.0-0.8) 11/03/18 05:06 Eosinophils # (Manual) 0.0 K/mm3 (0.0-0.4) 11/03/18 05:06 Basophils # (Manual) 0.0 K/mm3 (0.0-0.1) 11/03/18 05:06 Metamyelocytes # 0.0 K/mm3 11/03/18 05:06 Myelocytes # 0.0 K/mm3 11/03/18 05:06 Promyelocytes # 0.0 K/mm3 11/03/18 05:06 Blast Cells # 0.0 K/mm3 11/03/18 05:06 WBC Morphology Not Reportable 11/03/18 05:06 Hypersegmented Neuts Not Reportable 11/03/18 05:06 Hyposegmented Neuts Not Reportable 11/03/18 05:06 Hypogranular Neuts Not Reportable 11/03/18 05:06 Smudge Cells Not Reportable 11/03/18 05:06 Toxic Granulation Not Reportable 11/03/18 05:06 Toxic Vacuolation Not Reportable 11/03/18 05:06 Dohle Bodies Not Reportable 11/03/18 05:06 Pelger-Huet Anomaly Not Reportable 11/03/18 05:06 Charles Rods Not Reportable 11/03/18 05:06 Platelet Estimate Consistent w auto 11/03/18 05:06 Clumped Platelets Not Reportable 11/03/18 05:06 Plt Clumps, EDTA Not Reportable 11/03/18 05:06 Large Platelets Not Reportable 11/03/18 05:06 Giant Platelets Not Reportable 11/03/18 05:06 Platelet Satelliting Not Reportable 11/03/18 05:06 Plt Morphology Comment Not Reportable 11/03/18 05:06 RBC Morphology Not Reportable 11/03/18 05:06 Dimorphic RBCs Not Reportable 11/03/18 05:06 Polychromasia Not Reportable 11/03/18 05:06 Hypochromasia Not Reportable 11/03/18 05:06 Poikilocytosis 1+ 11/03/18 05:06 Anisocytosis 1+ 11/03/18 05:06 Microcytosis Not Reportable 11/03/18 05:06 Macrocytosis Rare 11/03/18 05:06 Spherocytes Not Reportable 11/03/18 05:06 Pappenheimer Bodies Not Reportable 11/03/18 05:06 Sickle Cells Not Reportable 11/03/18 05:06 Target Cells Not Reportable 11/03/18 05:06 Tear Drop Cells Not Reportable 11/03/18 05:06 Ovalocytes Not Reportable 11/03/18 05:06 Helmet Cells Not Reportable 11/03/18 05:06 Huynh-Elysian Bodies Not Reportable 11/03/18 05:06 [place] Rings Not Reportable 11/03/18 05:06 Maia Cells Not Reportable 11/03/18 05:06 Bite Cells Not Reportable 11/03/18 05:06 Crenated Cell Not Reportable 11/03/18 05:06 Elliptocytes Not Reportable 11/03/18 05:06 Acanthocytes (Spur) Not Reportable 11/03/18 05:06 Rouleaux Not Reportable 11/03/18 05:06 Hemoglobin C Crystals Not Reportable 11/03/18 05:06 Schistocytes Not Reportable 11/03/18 05:06 Malaria parasites Not Reportable 11/03/18 05:06 Jason Bodies Not Reportable 11/03/18 05:06 Hem Pathologist Commnt No 11/03/18 05:06 POC ABG pH 7.322 (7.35-7.45) L 11/01/18 00:57 POC ABG pCO2 69.7 (35-45) H 11/01/18 00:57 POC ABG pO2 81 (80-105) 11/01/18 00:57 POC ABG HCO3 36.0 11/01/18 00:57 POC ABG Total CO2 38 11/01/18 00:57 POC ABG O2 Sat 94 11/01/18 00:57 POC ABG Base Excess 10 11/01/18 00:57 FiO2 80 % 11/01/18 00:57 Sodium 135 mmol/L (137-145) L 11/04/18 05:13 Potassium 4.2 mmol/L (3.6-5.0) 11/04/18 05:13 Chloride 93.3 mmol/L (98-107) L 11/04/18 05:13 Carbon Dioxide 32 mmol/L (22-30) H 11/04/18 05:13 Anion Gap 14 mmol/L 11/04/18 05:13 BUN 31 mg/dL (7-17) H 11/04/18 05:13 Creatinine 0.9 mg/dL (0.7-1.2) 11/04/18 05:13 Estimated GFR > 60 ml/min 11/04/18 05:13 BUN/Creatinine Ratio 34 % 11/04/18 05:13 Glucose 250 mg/dL (65-100) H 11/04/18 05:13 POC Glucose 287 (70-105) H 11/04/18 15:45 Hemoglobin A1c 12.3 % (4-6) H 11/03/18 05:06 Calcium 8.5 mg/dL (8.4-10.2) 11/04/18 05:13 Total Bilirubin 0.30 mg/dL (0.1-1.2) 11/04/18 05:13 AST 11 units/L (5-40) 11/04/18 05:13 ALT 15 units/L (7-56) 11/04/18 05:13 Alkaline Phosphatase 115 units/L (35-129) 11/04/18 05:13 Troponin T < 0.010 ng/mL (0.00-0.029) 10/31/18 22:15 NT-Pro-B Natriuret Pep 1425 pg/mL (0-900) H 10/31/18 22:15 Total Protein 6.0 g/dL (6.3-8.2) L 11/04/18 05:13 Albumin 2.7 g/dL (3.9-5) L 11/04/18 05:13 Albumin/Globulin Ratio 0.8 % 11/04/18 05:13
[2018-11-04] MEDS: PRAVACHOL PO SCH (21:32)
[2018-11-05] MEDS: DUONEB *Not for PRN Use IH SCH ×3 (03:35→14:42)
[2018-11-05] MEDS: LASIX IV SCH (05:40)
[2018-11-05 06:02] LABS: Hematocrit 39.9 % (30.3-42.9); Hemoglobin 12.8 gm/dl (10.1-14.3); Mean Corpuscular HGB Conc 32 % (30-34); Mean Corpuscular Volume 87 fl (79-97); Platelet Count 217 K/mm3 (140-440); Red Blood Count 4.58 M/mm3 (3.65-5.03); Red Cell Distribution Width 16.8 % (13.2-15.2)
[2018-11-05 06:17] LABS: BUN/Creatinine Ratio 30; Blood Urea Nitrogen 30 mg/dL (7-17); Calcium 8.4 mg/dL (8.4-10.2); Hemolysis Index 11
[2018-11-05 06:40] LABS: Basophils % (Manual) 0 % (0.0-1.8); Eosinophils % (Manual) 0 % (0.0-4.3); Platelet Estimate Consistent w Auto; RBC Morphology Normal; Total Cells Counted 100
[2018-11-05] MEDS: AMARYL PO SCH (08:39)
[2018-11-05] MEDS: HumaLOG SUB-Q SCH ×2 (08:40→12:54)
[2018-11-05] MEDS: LANTUS SUB-Q SCH (08:40)
[2018-11-05] MEDS: LOVENOX SUB-Q SCH (09:07)
[2018-11-05] MEDS: GLUCOPHAGE PO SCH ×2 (09:07→17:07)
[2018-11-05] MEDS: ZYLOPRIM PO SCH (09:07)
[2018-11-05] MEDS: COREG PO SCH (09:07)
[2018-11-05] MEDS: BIDIL 20/37.5MG PO SCH (09:07)
[2018-11-05] MEDS: BABY ASPIRIN PO SCH (09:07)
[2018-11-05] MEDS: PROTONIX PO SCH (09:07)
[2018-11-05] MEDS: NORVASC PO SCH (09:07)
[2018-11-05] MEDS: SODIUM CHLORIDE FLUSH SYRINGE 10 ML IV SCH (09:08)
[2018-11-05] MEDS: PULMICORT IH SCH (09:22)
[2018-11-05] MEDS: BROVANA NEBU IH SCH (09:22)
--- NOTE | 2018-11-05 11:35 | Progress Note ---
Assessment and Plan Status post acute hypoxemic respiratory failure COPD exacerbation from volume overload.Controlled Tobacco abuse 2.1 x 2 centimeter S/P and left lower lobe. Some calcifications noted. Malignancy is suspected per current radiology report, but no comparison data here. Previously ordered to have PET scan outpatient-04/2018. I researched the office records on this patient; she had been on follow-up for left lower lobe lesion per prior records, with smaller LLL lesion reported since 2014. She also had been noncompliant with office follow-ups, been seeing after an acute pancreatitis for left lower lobe nodule reevaluation in September. She underwent a PET scan in 06/23/2018, which showed no uptake on the left lower lobe nodule but significant uptake in the mediastinal, left axillary and cervical lymph nodes; with high HUV values. Because of location, difficulty and risk to perform EBUS, she was sent for thoracic surgery consult at the time. Apparently, she did not follow-up , again lost to follow-up until this year at [facility]. She was seen in consult by Dr. Beltrán in October at [facility], with reportedly no change in left lower lobe lesion size and lymphadenopathy on her CT scan there. This suggests that it could be a hamartoma, but in view of prior PET CT scan findings, she will need a new PET update (to establish a new BX target) and possibly lymph node biopsy. Recommendations Gentle diuretics Ambulate patient and monitor oximetry. Add portable oxygen 2 L/m if oximetry below 89% on room air. Inhaler therapy including LAMA, LABA/ICS therapy, per GOLD guidelines. Can continue on Symbicort or Anoro Nutritional support, weight reduction diet. I told the patient that we'll need to follow-up with her on the next 2-3 weeks, in order to reorder her PET scan and refer to thorax surgery for VATS intervention, depending on scan findings. TTNA favored if significant focal uptake noted in left lower lobe lesion or change in size. However, this is not documented to have happened in the past 6 months Discussed with hospital medicine and patient detail. I also also ordering office staff to call and set for appointment in the next 2 weeks Subjective Date of service: 11/05/18 Principal diagnosis: acute hypoxemic respiratory failure, COPD exacerbation ,SPN,tobacco abuse Interval history: No chest complaints reported. Denies any systemic symptoms. Objective Vital Signs - 12hr 11/04/18 11/05/18 11/05/18 23:35 03:30 03:39 Temperature Pulse Rate 60 Pulse Rate [ 65 70 Anterior Bilateral Throughout] Pulse Rate [ Bilateral Lower Lobe] Respiratory 20 Rate Respiratory 16 18 Rate [Anterior Bilateral Throughout] Respiratory Rate [Bilateral Lower Lobe] Blood Pressure O2 Sat by Pulse 98 Oximetry 11/05/18 11/05/18 11/05/18 03:40 04:00 04:23 Temperature 97.8 F Pulse Rate 67 92 H 88 Pulse Rate [ Anterior Bilateral Throughout] Pulse Rate [ Bilateral Lower Lobe] Respiratory 16 16 Rate Respiratory Rate [Anterior Bilateral Throughout] Respiratory Rate [Bilateral Lower Lobe] Blood Pressure 106/62 O2 Sat by Pulse 94 91 Oximetry 11/05/18 11/05/18 11/05/18 09:21 09:23 09:59 Temperature Pulse Rate Pulse Rate [ Anterior Bilateral Throughout] Pulse Rate [ 85 74 Bilateral Lower Lobe] Respiratory Rate Respiratory Rate [Anterior Bilateral Throughout] Respiratory 17 16 Rate [Bilateral Lower Lobe] Blood Pressure O2 Sat by Pulse 92 Oximetry Constitutional: no acute distress, alert Eyes: non-icteric ENT: oropharynx moist Neck: supple, no JVD Effort: normal Ascultation: Bilateral: clear, diminished breath sounds ( ) Percussion: Bilateral: not dull Tactile fremitus: Bilateral: normal Cardiovascular: regular rate and rhythm Gastrointestinal: normoactive bowel sounds, soft, non-tender Extremities: no cyanosis, no edema, pink and warm, edema Neurologic: normal mental status, non-focal exam CBC and BMP: 11/05/18 05:15 11/05/18 05:15 ABG, PT/INR, D-dimer: ABG POC ABG pH 7.322 (7.35-7.45) L 11/01/18 00:57 POC ABG pCO2 69.7 (35-45) H 11/01/18 00:57 POC ABG pO2 81 (80-105) 11/01/18 00:57 POC ABG HCO3 36.0 11/01/18 00:57 POC ABG Total CO2 38 11/01/18 00:57 POC ABG O2 Sat 94 11/01/18 00:57 Abnormal lab findings: Abnormal Labs 10/31/18 10/31/18 11/01/18 22:15 22:15 00:57 WBC RDW 16.8 H Lymph % (Auto) Lymph # Seg Neutrophils % 76.8 H Seg Neuts % (Manual) Lymphocytes % (Manual) Seg Neutrophils # Man Lymphocytes # (Manual) POC ABG pH 7.322 L POC ABG pCO2 69.7 H Sodium Chloride 96.2 L Carbon Dioxide 34 H BUN Glucose 351 H POC Glucose Hemoglobin A1c Lactate Dehydrogenase NT-Pro-B Natriuret Pep 1425 H Total Protein Albumin 11/01/18 11/01/18 11/01/18 07:36 12:07 15:57 WBC RDW Lymph % (Auto) Lymph # Seg Neutrophils % Seg Neuts % (Manual) Lymphocytes % (Manual) Seg Neutrophils # Man Lymphocytes # (Manual) POC ABG pH POC ABG pCO2 Sodium Chloride Carbon Dioxide BUN Glucose POC Glucose 368 H 372 H 376 H Hemoglobin A1c Lactate Dehydrogenase NT-Pro-B Natriuret Pep Total Protein Albumin 11/01/18 11/02/18 11/02/18 21:24 05:34 05:34 WBC RDW 17.1 H Lymph % (Auto) 11.1 L Lymph # 0.9 L Seg Neutrophils % 86.1 H Seg Neuts % (Manual) Lymphocytes % (Manual) Seg Neutrophils # Man Lymphocytes # (Manual) POC ABG pH POC ABG pCO2 Sodium 135 L Chloride 92.6 L Carbon Dioxide 33 H BUN 26 H Glucose 425 H POC Glucose 432 H Hemoglobin A1c Lactate Dehydrogenase NT-Pro-B Natriuret Pep Total Protein Albumin 11/02/18 11/02/18 11/02/18 07:50 12:24 16:23 WBC RDW Lymph % (Auto) Lymph # Seg Neutrophils % Seg Neuts % (Manual) Lymphocytes % (Manual) Seg Neutrophils # Man Lymphocytes # (Manual) POC ABG pH POC ABG pCO2 Sodium Chloride Carbon Dioxide BUN Glucose POC Glucose 326 H 309 H 417 H Hemoglobin A1c Lactate Dehydrogenase NT-Pro-B Natriuret Pep Total Protein Albumin 11/02/18 11/03/18 11/03/18 21:24 05:06 05:06 WBC RDW 16.4 H Lymph % (Auto) Lymph # Seg Neutrophils % Seg Neuts % (Manual) 92.0 H Lymphocytes % (Manual) 7.0 L Seg Neutrophils # Man 10.0 H Lymphocytes # (Manual) 0.8 L POC ABG pH POC ABG pCO2 Sodium 133 L Chloride 91.7 L Carbon Dioxide 33 H BUN 28 H Glucose 514 H* POC Glucose 305 H Hemoglobin A1c Lactate Dehydrogenase NT-Pro-B Natriuret Pep Total Protein Albumin 11/03/18 11/03/18 11/03/18 05:06 08:21 11:46 WBC RDW Lymph % (Auto) Lymph # Seg Neutrophils % Seg Neuts % (Manual) Lymphocytes % (Manual) Seg Neutrophils # Man Lymphocytes # (Manual) POC ABG pH POC ABG pCO2 Sodium Chloride Carbon Dioxide BUN Glucose POC Glucose 395 H 295 H Hemoglobin A1c 12.3 H Lactate Dehydrogenase NT-Pro-B Natriuret Pep Total Protein Albumin 11/03/18 11/03/18 11/04/18 15:32 20:52 05:13 WBC RDW Lymph % (Auto) Lymph # Seg Neutrophils % Seg Neuts % (Manual) Lymphocytes % (Manual) Seg Neutrophils # Man Lymphocytes # (Manual) POC ABG pH POC ABG pCO2 Sodium 135 L Chloride 93.3 L Carbon Dioxide 32 H BUN 31 H Glucose 250 H POC Glucose 199 H 362 H Hemoglobin A1c Lactate Dehydrogenase NT-Pro-B Natriuret Pep Total Protein 6.0 L Albumin 2.7 L 11/04/18 11/04/18 11/04/18 07:37 11:36 15:45 WBC RDW Lymph % (Auto) Lymph # Seg Neutrophils % Seg Neuts % (Manual) Lymphocytes % (Manual) Seg Neutrophils # Man Lymphocytes # (Manual) POC ABG pH POC ABG pCO2 Sodium Chloride Carbon Dioxide BUN Glucose POC Glucose 205 H 217 H 287 H Hemoglobin A1c Lactate Dehydrogenase NT-Pro-B Natriuret Pep Total Protein Albumin 11/04/18 11/04/18 11/05/18 17:17 20:38 05:15 WBC 12.8 H RDW 16.8 H Lymph % (Auto) Lymph # Seg Neutrophils % Seg Neuts % (Manual) 91.0 H Lymphocytes % (Manual) 6.0 L Seg Neutrophils # Man 11.6 H Lymphocytes # (Manual) 0.8 L POC ABG pH POC ABG pCO2 Sodium Chloride Carbon Dioxide BUN Glucose POC Glucose 335 H Hemoglobin A1c Lactate Dehydrogenase 334 H NT-Pro-B Natriuret Pep Total Protein Albumin 11/05/18 05:15 WBC RDW Lymph % (Auto) Lymph # Seg Neutrophils % Seg Neuts % (Manual) Lymphocytes % (Manual) Seg Neutrophils # Man Lymphocytes # (Manual) POC ABG pH POC ABG pCO2 Sodium Chloride 94.4 L Carbon Dioxide 33 H BUN 30 H Glucose 274 H POC Glucose Hemoglobin A1c Lactate Dehydrogenase NT-Pro-B Natriuret Pep Total Protein Albumin
[2018-11-05 11:40] VITALS: BP 127/90
[2018-11-05] MEDS: SOLU-Medrol IV SCH (12:54)
--- NOTE | 2018-11-05 15:12 | Discharge Summary ---
Providers - Providers Date of Admission: 11/01/18 04:20 Date of discharge: 11/05/18 Attending physician: ABILIO KUNZ 11/01/18 03:36 Consult to Physician [CONS] Stat Comment: Dr. Avila spoke with Dr. Guerin @ [phone] Consulting Provider: TANESHA GUERIN Physician Instructions: Reason For Exam: on bipap Primary care physician: BRIANNA BERGER MD Hospitalization Reason for admission: Shortness of breath,uncontrolled blood sugars Condition: Stable Pertinent studies: CTA chest CXR Hospital course: 53-year-old with a history of hypertension, diabetes, hyperlipidemia, COPD on home oxygen, CHF was admitted through emergency room with shortness of breath 4 days.Initial work up is consistant with uncontrolled blood sugar,pneumonia and lung mass.Managed symptomatcally and evaluated by pulm, medications optimised.Patients symptoms improved , Today pt is comfortable,no new complaints, Vtal signs stable, Physical exam is unremarkable. Patient will f/u with pulm for further evaln and management of lung mass., Patient is Stable at discharge Discharge Diagnosis: --Uncontrolled blood sugars; Accu-Chek sliding scale coverage and ADA diet, Check A1c 12.3 --Acute hypoxic respiratory failure; Secondary to COPD exacerbation, continue oxygen titrated to O2 sats more than 90%, nebulizers IV steroids, IV antibiotics, inhalation steroids --Community-acquired pneumonia multifocal; acute versus residual pneumonia empiric antibiotics, follow cultures --Left lower lobe calcified mass; pulmonary following, Further evaluation as outpatient --Acute diastolic CHF; ejection fraction 50-55% , LVH. Abnormal left ventricular relaxation on anti-failure medications --Diabetes2; Accu-Chek sliding scale coverage and ADA diet and insulin as needed --Hypertension; moderate control continue current antihypertensives and when necessary medications --Hyperlipidemia; on statins --Obesity; BMI 37.9, advised weight reduction as tolerated --Ongoing tobacco use; smoking cessation counseling, nicotine patch as needed --DVT prophylaxis; Lovenox Present monitor the patient and adjust the management as needed Plan of care reviewed with the patient and her nurse Pulm consults and recommendations noted and appreciated Possible discharge in 1-2 days if stable table at discharge Disposition: -01 TO HOME OR SELFCARE Time spent for discharge: 32 min Core Measure Documentation - Palliative Care Palliative Care/ Comfort Measures: Not Applicable - Core Measures Any of the following diagnoses?: none Exam - Constitutional Vitals: Temp Pulse Resp BP Pulse Ox 98.3 F 94 H 18 127/90 90 11/05/18 08:41 11/05/18 14:54 11/05/18 14:54 11/05/18 11:37 11/05/18 11:37 General appearance: Present: no acute distress, well-nourished, obese - EENT Eyes: Present: PERRL, EOM intact - Neck Neck: Present: supple, normal ROM - Respiratory Respiratory effort: normal Respiratory: bilateral: diminished, negative: rales, rhonchi, wheezing - Cardiovascular Rhythm: regular Heart Sounds: Present: S1 & S2 - Extremities Extremities: no ischemia, No edema - Abdominal General gastrointestinal: Present: soft, non-tender, non-distended, normal bowel sounds - Integumentary Integumentary: Present: clear, warm - Musculoskeletal Musculoskeletal: strength equal bilaterally - Psychiatric Psychiatric: appropriate mood/affect, cooperative - Neurologic Neurologic: CNII-XII intact, moves all extremities Plan Activity: no restrictions Diet: low carbohydrate Special Instructions: physical therapy Additional Instructions: Continue home oxygen as before Follow up with: PRIMARY CAREMD [Referring] - 3-5 Days KENYETTA SOLOMON MD [Staff Physician] - 7 Days Prescriptions: Prednisone [predniSONE 10 mg (6-Day Pack, 21 Tabs)] 10 mg PO .TAPER #1 tab.ds.pk
== END 2018-11-05 18:03 | disposition home or self-care (01) | DRG 291 ==
LOC: ED 20:29 → 4A 11-01 04:20
PROVIDERS: ADMIT Internal Medicine; ATTEND Internal Medicine
PROC: 5A09557 Assistance with Respiratory Ventilation, Greater than 96 Consecutive Hours, Continuous Positive Airway Pressure (ICD-10-PCS; 2018-10-31)
PROC: 4A033R1 Measurement of Arterial Saturation, Peripheral, Percutaneous Approach (ICD-10-PCS; principal; 2018-11-01)
DX: I11.0 Hypertensive heart disease with heart failure (principal); I50.31 Acute diastolic (congestive) heart failure; J18.9 Pneumonia, unspecified organism; J96.01 Acute respiratory failure with hypoxia; J44.1 Chronic obstructive pulmonary disease with (acute) exacerbation; J44.0 Chronic obstructive pulmonary disease with (acute) lower respiratory infection; E11.9 Type 2 diabetes mellitus without complications; F17.200 Nicotine dependence, unspecified, uncomplicated; E78.5 Hyperlipidemia, unspecified; E66.9 Obesity, unspecified; M19.90 Unspecified osteoarthritis, unspecified site; R91.1 Solitary pulmonary nodule; Z68.37 Body mass index [BMI] 37.0-37.9, adult; Z71.3 Dietary counseling and surveillance; Z71.6 Tobacco abuse counseling; Z79.4 Long term (current) use of insulin; Z79.899 Other long term (current) drug therapy; Z99.81 Dependence on supplemental oxygen; Z82.49 Family history of ischemic heart disease and other diseases of the circulatory system
CPT/HCPCS: 36415; 71045; 71275; 80048; 80053; 82164; 82803; 82962; 83036; 83615; 83880; 84484; 85007; 85025; 87040; 93005; 93010; 93306; 94640; 94660; 94760; 99406; G0378; A9270-GY; J1650; J1720; J1815; J1940; J1956; J2920; Q9967

== ENCOUNTER 2019-01-07 16:42 | Inpatient (IN) | payer MEDICARE ==
[~2019-01-07 16:42] MED LIST: MAGNESIUM SULFATE 2GM/50ML 2 GM/50 ML BAG IV ONE; SOLU-Medrol ONE
[2019-01-07] MEDS ORDERED: SOLU-Medrol IV ONE (16:46)
[2019-01-07] MEDS ORDERED: PROVENTIL IH ONE ×2 (16:46→16:48)
[2019-01-07] MEDS ORDERED: MAGNESIUM SULFATE 2GM/50ML 2 GM/50 ML BAG IV ONE (16:46)
[2019-01-07] MEDS ORDERED: ATROVENT IH ONE ×2 (16:46→16:47)
--- NOTE | 2019-01-07 16:53 | Emergency Department Report ---
ED Shortness of Breath HPI - General Stated Complaint: NUVIA Time Seen by Provider: 01/07/19 16:45 Source: patient, EMS, old records reviewed Mode of arrival: Stretcher Limitations: Other (severe shortness of breath) - History of Present Illness Initial Comments: Mrs. Willoughby is a 52-year-old female with history of hypertension, diabetes, lipidemia, COPD on home oxygen 4 L nasal cannula, CHF who presents with shortness of breath today. Recently admitted in October. Diagnosed with pneumonia and lung mass. No history of intubation. History of ongoing tobacco use. She denies any chest pain. However history is limited due to severe respiratory distress. Arrived per EMS on CPAP. Oxygen saturation in the 60s range on room air according to paramedics at the bedside. MD Complaint: shortness of breath -: Gradual, hour(s) (several) Severity: severe Improves With: upright position Known History Of: COPD, congestive heart failure Context: other (recently admitted in October) - Related Data Home Medications Medication Instructions Recorded Confirmed Last Taken Exenatide Microspheres [Bydureon 2 mg SQ QWEEK 11/01/18 11/01/18 Unknown Bcise] Glimepiride [Amaryl] 4 mg PO DAILY 11/01/18 11/01/18 Unknown Isosorb Dinit/Hydralazine [Bidil 1 tab PO BID 11/01/18 11/01/18 Unknown 20/37.5MG] Pantoprazole [Protonix TAB] 40 mg PO QDAY 11/01/18 11/01/18 Unknown amLODIPine [Norvasc] 10 mg PO DAILY 11/01/18 11/01/18 Unknown metFORMIN [Glucophage] 500 mg PO BID 11/01/18 11/01/18 Unknown Previous Rx's Medication Instructions Recorded Last Taken Type ALBUTEROL Inhaler (OR & NICU) 1 puff IH Q4H PRN #1 inha 12/05/15 Unknown Rx [ProAir HFA Inhaler] Allopurinol [Zyloprim] 300 mg PO DAILY #30 tablet 12/05/15 Unknown Rx Aspirin [Aspirin BABY CHEW TAB] 81 mg PO QDAY #30 tab.chew 12/05/15 Unknown Rx Carvedilol [Coreg] 6.25 mg PO BID #60 tablet 12/05/15 Unknown Rx Furosemide [Lasix TAB] 40 mg PO QDAY #30 tablet 12/05/15 Unknown Rx Insulin Glargine [Lantus VIAL] 35 units SUB-Q QHS #10 units 12/05/15 Unknown Rx Ipratropium/Albuterol Sulfate 1 ampul IH TID #100 ampul.neb 12/05/15 Unknown Rx [DUONEB *Not for PRN Use*] Simvastatin [Zocor TAB] 40 mg PO QHS #30 tablet 12/05/15 Unknown Rx Albuterol *Only Ed* [Proventil 2.5 mg IH Q4HRT PRN #30 nebu 05/18/16 Unknown Rx 0.5% NEBS] Prednisone [predniSONE 10 mg 10 mg PO .TAPER #1 tab.ds.pk 11/05/18 Unknown Rx (6-Day Pack, 21 Tabs)] Allergies Allergy/AdvReac Type Severity Reaction Status Date / Time No Known Allergies Allergy Verified 08/01/13 21:57 ED Review of Systems ROS: Stated complaint: NUVIA Other details as noted in HPI Comment: Unobtainable due to pts medical conditions (severe work of breathing) ED Past Medical Hx - Past Medical History Previous Medical History?: Yes Hx Hypertension: Yes Hx Heart Attack/AMI: No Hx Congestive Heart Failure: Yes Hx Diabetes: Yes Hx Deep Vein Thrombosis: No Hx Pulmonary Embolism: Yes (?) Hx GERD: No Hx Liver Disease: No Hx Sickle Cell Disease: No Hx Arthritis: Yes Hx Headaches / Migraines: No Hx Asthma: Yes Hx COPD: Yes (Home 02 4 liters) Hx Tuberculosis: No Hx HIV: No Additional medical history: high chol - Surgical History Past Surgical History?: Yes Hx Coronary Stent: No Hx Pacemaker: No Hx Internal Defibrillator: No Hx Breast Surgery: Yes - Social History Smoking Status: Current Every Day Smoker - Medications Home Medications: Home Medications Medication Instructions Recorded Confirmed Last Taken Type ALBUTEROL Inhaler (OR & NICU) 1 puff IH Q4H PRN #1 inha 12/05/15 11/01/18 Unknown Rx [ProAir HFA Inhaler] Allopurinol [Zyloprim] 300 mg PO DAILY #30 tablet 12/05/15 11/01/18 Unknown Rx Aspirin [Aspirin BABY CHEW TAB] 81 mg PO QDAY #30 tab.chew 12/05/15 11/01/18 Unknown Rx Carvedilol [Coreg] 6.25 mg PO BID #60 tablet 12/05/15 11/01/18 Unknown Rx Furosemide [Lasix TAB] 40 mg PO QDAY #30 tablet 12/05/15 11/01/18 Unknown Rx Insulin Glargine [Lantus VIAL] 35 units SUB-Q QHS #10 units 12/05/15 11/01/18 Unknown Rx Ipratropium/Albuterol Sulfate 1 ampul IH TID #100 ampul.neb 12/05/15 11/01/18 Unknown Rx [DUONEB *Not for PRN Use*] Simvastatin [Zocor TAB] 40 mg PO QHS #30 tablet 12/05/15 11/01/18 Unknown Rx Albuterol *Only Ed* [Proventil 2.5 mg IH Q4HRT PRN #30 nebu 05/18/16 11/01/18 Unknown Rx 0.5% NEBS] Exenatide Microspheres [Bydureon 2 mg SQ QWEEK 11/01/18 11/01/18 Unknown History Bcise] Glimepiride [Amaryl] 4 mg PO DAILY 11/01/18 11/01/18 Unknown History Isosorb Dinit/Hydralazine [Bidil 1 tab PO BID 11/01/18 11/01/18 Unknown History 20/37.5MG] Pantoprazole [Protonix TAB] 40 mg PO QDAY 11/01/18 11/01/18 Unknown History amLODIPine [Norvasc] 10 mg PO DAILY 11/01/18 11/01/18 Unknown History metFORMIN [Glucophage] 500 mg PO BID 11/01/18 11/01/18 Unknown History Prednisone [predniSONE 10 mg 10 mg PO .TAPER #1 tab.ds.pk 11/05/18 Unknown Rx (6-Day Pack, 21 Tabs)] ED Physical Exam - General General appearance: alert, in distress, other (severe work of breathing, tripod position) - Head Head exam: Present: atraumatic, normocephalic - Eye Eye exam: Present: normal appearance - ENT ENT exam: Present: mucous membranes moist - Neck Neck exam: Present: normal inspection, full ROM - Respiratory Respiratory exam: Present: rales, accessory muscle use, decreased breath sounds, prolonged expiratory. Absent: respiratory distress, wheezes, rhonchi - Cardiovascular Cardiovascular Exam: Present: regular rate, normal rhythm. Absent: normal heart sounds, systolic murmur, diastolic murmur, rubs, gallop - GI/Abdominal GI/Abdominal exam: Present: soft, normal bowel sounds. Absent: distended, tenderness, guarding, rebound - Extremities Exam Extremities exam: Present: normal inspection - Back Exam Back exam: Present: normal inspection - Neurological Exam Neurological exam: Present: alert, oriented X3 - Psychiatric Psychiatric exam: Present: normal affect, normal mood - Skin Skin exam: Present: warm, dry, intact, normal color. Absent: rash ED Course Vital Signs 01/07/19 01/07/19 01/07/19 16:43 16:49 17:52 Temperature 98.5 F Pulse Rate 93 H 94 H 86 Respiratory 23 10 L 24 Rate Blood Pressure 136/74 O2 Sat by Pulse 77 L 96 Oximetry - Reevaluation(s) Reevaluation #1: 01/07/19 17:39 I re-evaluated Mrs. Mullins. She appears much better. Normal vital signs with exception of mild tachypnea. Speaking full word sentences while on BiPAP. ED Medical Decision Making - Lab Data Result diagrams: 01/07/19 17:19 01/07/19 17:19 - EKG Data 01/07/19 17:46 EKG obtained 1742 Normal sinus rhythm rate 85 bpm nl axis prolonged qt interval no ST elevation nonspecific T wave pattern - Radiology Data Radiology results: report reviewed Basilar congestion, bilateral pleural effusions - Medical Decision Making Ms. Mullins presents with acute respiratory failure perform hypoxia with acute CHF exacerbation and acute COPD. Treated with IV furosemide per EMS and additional dose in the emergency department. Further treatment include bronchodilator therapy, noninvasive positive pressure ventilation, magnesium, steroids, antibiotics. No indication of healthcare associated pneumonia at this time. No fever or productive cough. No defined infiltrate on chest x-ray. Admitted to hospitalist service in improved stable condition on BiPAP. Admitted to telemetry. I provided bridging orders. ABG noted for adequate ventilation and hypoxia Critical Care Time: Yes Critical care time in (mins) excluding proc time.: 40 Critical care attestation.: If time is entered above; I have spent that time in minutes in the direct care of this critically ill patient, excluding procedure time. 40 minutes of critical care time excluding procedures were used in the care of the patient. I came to the bedside immediately. I obtain history from paramedics at the bedside. The Patient Was in Severe Respiratory Distress with Profound Hypoxemia 61% on Room Air. I Discussed Care Of the Respiratory Therapist and Registered Nurse at the Bedside. Immediate Intervention include BiPAP application, IV steroids, IV magnesium and Bronchodilator therapy. Patient required multiple assessments and interventions. I reviewed the electronic medical record. I spoke with consultants involved in the care of the patient. ED Disposition Clinical Impression: Acute on chronic systolic congestive heart failure, Acute on chronic respiratory failure with hypoxemia, COPD with acute exacerbation Disposition: OP ADMIT IP TO THIS HOSP Is pt being admited?: Yes Does the pt Need Aspirin: No Condition: Stable
[2019-01-07 17:42] LABS: Basophils # (Auto) 0.1 K/mm3 (0.0-0.1); Basophils % (Auto) 1.1 % (0.0-1.8); Eosinophils # (Auto) 0.1 K/mm3 (0.0-0.4); Eosinophils % (Auto) 1.3 % (0.0-4.3); Hematocrit 37.7 % (30.3-42.9); Hemoglobin 12.5 gm/dl (10.1-14.3); Lymphocytes # (Auto) 1.3 K/mm3 (1.2-5.4); Mean Corpuscular HGB Conc 33 % (30-34); Mean Corpuscular Volume 92 fl (79-97); Monocytes # (Auto) 0.5 K/mm3 (0.0-0.8); Monocytes % (Auto) 6.8 % (0.0-7.3); Platelet Count 261 K/mm3 (140-440); Red Blood Count 4.11 M/mm3 (3.65-5.03)
--- NOTE | 2019-01-07 17:42 | XRay Report ---
PROCEDURE: XR CHEST 1V AP TECHNIQUE: Chest radiograph , single frontal view. HISTORY: Dyspnea COMPARISONS: CXR 10/31/2018 . FINDINGS: Heart: Enlarged but stable. Mediastinum/Vessels: Prominence of the main pulmonary artery segment is stable.. Lungs/Pleural space: Vascular congestion seen previously has nearly resolved. There are bilateral mo derate pleural effusions present.. Bony thorax: No acute osseous abnormality. Life support devices: None. IMPRESSION: Significant improvement in vascular congestion. Bilateral effusions are noted. This document is electronically signed by Sun Payne MD., Jan 07 2019 05:39:48 PM ET
[2019-01-07 18:05] LABS: Alanine Aminotransferase 13 units/L (7-56); Albumin 2.9 g/dL (3.9-5); BUN/Creatinine Ratio 21; Blood Urea Nitrogen 15 mg/dL (7-17); Calcium 8.5 mg/dL (8.4-10.2); Hemolysis Index 31
[2019-01-07] MEDS ORDERED: LASIX IV ONE (18:48)
[2019-01-07] MEDS ORDERED: TYLENOL PO PRN (19:33)
[2019-01-07] MEDS ORDERED: SODIUM CHLORIDE FLUSH SYRINGE 10 ML IV PRN (19:33)
[2019-01-07] MEDS ORDERED: PROVENTIL IH PRN (19:33)
[2019-01-07] MEDS ORDERED: ZOFRAN IV PRN (19:33)
[2019-01-07] MEDS ORDERED: D50W (25GM) Syringe IV PRN (19:35)
[2019-01-07] MEDS ORDERED: APRESOLINE IV PRN (19:38)
[2019-01-07] MEDS: DUONEB *Not for PRN Use IH SCH (19:49)
[2019-01-07] MEDS: PULMICORT IH SCH (19:50)
--- NOTE | 2019-01-07 19:51 | History and Physical Report ---
History of Present Illness Date of examination: 01/07/19 Date of admission: 01/07/2019 Chief complaint: Progressively worsening shortness of breath at rest and with activity History of present illness: 53-year-old -[place] female with history of hypertension, diabetes, hyperlipidemia, COPD, chronic respiratory failure on 4L continuous home oxygen, Diastolic CHF with EF 50-55% who presents to [facility] via EMS with c/o progressively worsening shortness of breath over the past day. According to EMS patient had oxygen saturation in the 60s on room air subsequently she was placed on CPAP. Patient states that she becomes short of breath at rest and with activity. She feels like she is not getting enough oxygen. Admits to wheezing, cough, occasional creamed colored sputum production. Denies chest pain, hemoptysis, fever, and headache. Please note review of chart shows the patient was admitted on 10/31/18 with similar complaints. She was diagnosed with pneumonia and lung mass.. Past History Past Medical History: diabetes, heart failure, hypertension, hyperlipidemia Past Surgical History: No surgical history Social history: other (recently quit smoking 2 months ago; previously smoked half a pack a day for over 20+ years) Medications and Allergies Allergies Allergy/AdvReac Type Severity Reaction Status Date / Time No Known Allergies Allergy Verified 08/01/13 21:57 Home Medications Medication Instructions Recorded Confirmed Last Taken Type ALBUTEROL Inhaler (OR & NICU) 1 puff IH Q4H PRN #1 inha 12/05/15 11/01/18 Unknown Rx [ProAir HFA Inhaler] Allopurinol [Zyloprim] 300 mg PO DAILY #30 tablet 12/05/15 11/01/18 Unknown Rx Aspirin [Aspirin BABY CHEW TAB] 81 mg PO QDAY #30 tab.chew 12/05/15 11/01/18 Unknown Rx Carvedilol [Coreg] 6.25 mg PO BID #60 tablet 12/05/15 11/01/18 Unknown Rx Furosemide [Lasix TAB] 40 mg PO QDAY #30 tablet 12/05/15 11/01/18 Unknown Rx Insulin Glargine [Lantus VIAL] 35 units SUB-Q QHS #10 units 12/05/15 11/01/18 Unknown Rx Ipratropium/Albuterol Sulfate 1 ampul IH TID #100 ampul.neb 12/05/15 11/01/18 Unknown Rx [DUONEB *Not for PRN Use*] Simvastatin [Zocor TAB] 40 mg PO QHS #30 tablet 12/05/15 11/01/18 Unknown Rx Albuterol *Only Ed* [Proventil 2.5 mg IH Q4HRT PRN #30 nebu 05/18/16 11/01/18 Unknown Rx 0.5% NEBS] Exenatide Microspheres [Bydureon 2 mg SQ QWEEK 11/01/18 11/01/18 Unknown History Bcise] Glimepiride [Amaryl] 4 mg PO DAILY 11/01/18 11/01/18 Unknown History Isosorb Dinit/Hydralazine [Bidil 1 tab PO BID 11/01/18 11/01/18 Unknown History 20/37.5MG] Pantoprazole [Protonix TAB] 40 mg PO QDAY 11/01/18 11/01/18 Unknown History amLODIPine [Norvasc] 10 mg PO DAILY 11/01/18 11/01/18 Unknown History metFORMIN [Glucophage] 500 mg PO BID 11/01/18 11/01/18 Unknown History Prednisone [predniSONE 10 mg 10 mg PO .TAPER #1 tab.ds.pk 11/05/18 Unknown Rx (6-Day Pack, 21 Tabs)] Active Meds: Active Medications Acetaminophen (Tylenol) 650 mg PO Q4H PRN PRN Reason: Pain MILD(1-3)/Fever >100.5/WANG Albuterol (Proventil) 2.5 mg IH Q4HRT PRN PRN Reason: Shortness Of Breath Albuterol/Ipratropium (Duoneb *Not For Prn Use*) 1 ampul IH Q6HRT [place] Allopurinol (Zyloprim) 300 mg PO DAILY [place] Amlodipine Besylate (Norvasc) 10 mg PO DAILY [place] Aspirin (Baby Aspirin) 81 mg PO QDAY [place] Budesonide (Pulmicort) 0.5 mg IH Q12HRT [place] Carvedilol (Coreg) 6.25 mg PO BID [place] Dextrose (D50w (25gm) Syringe) 50 ml IV PRN PRN PRN Reason: Hypoglycemia Docusate Sodium (Colace) 100 mg PO BID [place] Enoxaparin Sodium (Lovenox) 40 mg SUB-Q QDAY@2200 [place] Furosemide (Lasix) 40 mg IV DAILY [facility] Hydralazine HCl (Apresoline) 10 mg IV Q4HR PRN PRN Reason: Blood Pressure Levofloxacin/Dextrose (Levaquin 500mg/100ml) 500 mg in 100 mls @ 100 mls/hr IV Q24HR [facility]; Protocol Insulin Glargine (Lantus) 20 units SUB-Q QHS [facility] Insulin Human Lispro (Humalog) 0 unit SUB-Q ACHS [facility]; Protocol Isosorbide Dinitrate/Hydralazine (Bidil 20/37.5mg) 1 each PO BID [facility] Metformin HCl (Glucophage) 500 mg PO BID [facility] Methylprednisolone Sodium Succinate (Solu-Medrol) 60 mg IV Q8HR [facility] Miscellaneous Medication (Simvastatin) 40 mg PO QHS [facility] Ondansetron HCl (Zofran) 4 mg IV Q8H PRN PRN Reason: Nausea And Vomiting Pantoprazole Sodium (Protonix) 40 mg PO QDAY [facility] Potassium Chloride (K-Dur) 40 meq PO DAILY [facility] Sodium Chloride (Sodium Chloride Flush Syringe 10 Ml) 10 ml IV BID [facility] Sodium Chloride (Sodium Chloride Flush Syringe 10 Ml) 10 ml IV PRN PRN PRN Reason: LINE FLUSH Review of Systems Constitutional: weight loss Cardiovascular: shortness of breath, dyspnea on exertion, high blood pressure Respiratory: cough with sputum (cream-colored sputum) Allergic/Immunologic: wheezing Exam - Physical Exam Narrative exam: Physical exam General appearance: Present: Mild distress, on BiPAP, awake, alert and oriented 3 - EENT Eyes: Present: PERRL, EOM intact ENT: hearing intact - Neck Neck: Present: supple, normal ROM - Respiratory Respiratory effort: Labored, on BiPAP Respiratory: Scattered rhonchi to upper lobes bilaterally, diminished bases, poor air movement - Cardiovascular Heart rate: 87 (bpm) Rhythm: regular Heart Sounds: Present: S1 & S2. Absent: rub, click - Extremities Extremities: no ischemia, pulses intact, abnormal (+1 pitting edema BLE) - Peripheral Assessment Peripheral Pulses: within normal limits - Abdominal General gastrointestinal: soft, non-tender, normal bowel sounds - Integumentary Integumentary: Present: warm, dry - Musculoskeletal Musculoskeletal: Able to move all extremities - Psychiatric Psychiatric: cooperative - Constitutional Vitals: Temp Pulse Resp BP Pulse Ox 98.5 F 86 24 136/74 96 05/09/19 16:43 01/07/19 17:52 01/07/19 17:52 01/07/19 16:43 01/07/19 17:52 Results - Labs CBC & Chem 7: 01/07/19 17:19 01/07/19 17:19 Labs: Laboratory Last Values WBC 7.3 K/mm3 (4.5-11.0) 01/07/19 17:19 RBC 4.11 M/mm3 (3.65-5.03) 01/07/19 17:19 Hgb 12.5 gm/dl (10.1-14.3) 01/07/19 17:19 Hct 37.7 % (30.3-42.9) 01/07/19 17:19 MCV 92 fl (79-97) 01/07/19 17:19 MCH 30 pg (28-32) 01/07/19 17:19 MCHC 33 % (30-34) 01/07/19 17:19 RDW 16.0 % (13.2-15.2) H 01/07/19 17:19 Plt Count 261 K/mm3 (140-440) 01/07/19 17:19 Lymph % (Auto) 18.0 % (13.4-35.0) 01/07/19 17:19 [place] % (Auto) 6.8 % (0.0-7.3) 01/07/19 17:19 Eos % (Auto) 1.3 % (0.0-4.3) 01/07/19 17:19 Baso % (Auto) 1.1 % (0.0-1.8) 01/07/19 17:19 Lymph # 1.3 K/mm3 (1.2-5.4) 01/07/19 17:19 [place] # 0.5 K/mm3 (0.0-0.8) 01/07/19 17:19 Eos # 0.1 K/mm3 (0.0-0.4) 01/07/19 17:19 Baso # 0.1 K/mm3 (0.0-0.1) 01/07/19 17:19 Seg Neutrophils % 72.8 % (40.0-70.0) H 01/07/19 17:19 Seg Neutrophils # 5.4 K/mm3 (1.8-7.7) 01/07/19 17:19 POC ABG pH 7.366 (7.35-7.45) 01/07/19 17:55 POC ABG pCO2 59.1 (35-45) H 01/07/19 17:55 POC ABG pO2 63 (80-105) L 01/07/19 17:55 POC ABG HCO3 33.8 (22-26 mml/L) 01/07/19 17:55 POC ABG Total CO2 36 (23-27mmol/L) 01/07/19 17:55 POC ABG O2 Sat 90 01/07/19 17:55 POC ABG Base Excess 8 ((-2) - (+3)mmol/L) 01/07/19 17:55 50 % 01/07/19 17:55 Sodium 137 mmol/L (137-145) 01/07/19 17:19 Potassium 4.0 mmol/L (3.6-5.0) 01/07/19 17:19 Chloride 96.9 mmol/L (98-107) L 01/07/19 17:19 Carbon Dioxide 32 mmol/L (22-30) H 01/07/19 17:19 12 mmol/L 01/07/19 17:19 BUN 15 mg/dL (7-17) 01/07/19 17:19 0.7 mg/dL (0.7-1.2) 01/07/19 17:19 Estimated GFR > 60 ml/min 01/07/19 17:19 21 % 01/07/19 17:19 Glucose 290 mg/dL (65-100) H 01/07/19 17:19 Calcium 8.5 mg/dL (8.4-10.2) 01/07/19 17:19 Magnesium 2.50 mg/dL (1.7-2.3) H 01/07/19 17:19 0.80 mg/dL (0.1-1.2) 01/07/19 17:19 AST 17 units/L (5-40) 01/07/19 17:19 ALT 13 units/L (7-56) 01/07/19 17:19 119 units/L (35-129) 01/07/19 17:19 < 0.010 ng/mL (0.00-0.029) 01/07/19 17: 7.0 g/dL (6.3-8.2) 01/07/19 17:19 2.9 g/dL (3.9-5) L 01/07/19 17:19 0.7 % 01/07/19 17:19 Short CBC 01/07/19 Range/Units 17:19 WBC 7.3 (4.5-11.0) K/mm3 Hgb 12.5 (10.1-14.3) gm/dl Hct 37.7 (30.3-42.9) % Plt Count 261 (140-440) K/mm3 BMP 01/07/19 17:19 Sodium 137 Potassium 4.0 Chloride 96.9 L Carbon Dioxide 32 H BUN 15 Creatinine 0.7 Glucose 290 H Calcium 8.5 Cardiac Enzymes 01/07/19 Range/Units 17: Troponin T < 0.010 (0.00-0.029) ng/mL Liver Function 01/07/19 Range/Units 17: Total Bilirubin 0.80 (0.1-1.2) mg/dL AST 17 (5-40) units/L ALT 13 (7-56) units/L Alkaline Phosphatase 119 (35-129) units/L Albumin 2.9 L (3.9-5) g/dL - Imaging and Cardiology EKG: image reviewed (sinus rhythm at 87 bpm, atrial premature complexes, probable left atrial enlargement and anteroseptal infarct age undetermined) Chest x-ray: report reviewed (MPRESSION: Significant improvement in vascular congestion when compared to CXR done on 10/31/18. Bilateral effusions are noted), image reviewed Assessment and Plan Assessment and plan: 53-year-old -[place] female with history of hypertension, diabetes, hyperlipidemia, COPD, chronic respiratory failure on 4L continuous home oxygen, Diastolic CHF with EF 50-55% who presents to [facility] via EMS with c/o progressively worsening shortness of breath over the past day. According to EMS patient had oxygen saturation in the 60s on room air subsequently she was placed on CPAP. Patient was found to be hypoxic and hypercapnic with pH 7.36/59.1/63/33.8. She was placed on BiPAP. Patient will be admitted to telemetry unit. Acute hypercapnic respiratory failure Acute on chronic hypoxic respiratory failure Acute exacerbation COPD Acute exacerbation diastolic CHF Hypertension Hyperlipidemia DM 2 History of gout Plans: Continue BiPAP wean as tolerated Start Duonebs, Pulmicort, Albuterol prn Solumedrol 60mg q8hrs Cultures pending Start Levaquin HgbA1c pending Continue POC BG monitoring SSI and scheduled Lantus, metformin 500 mg twice a day Continuous telemetry monitoring Monitor BP Resume home Coreg 6.25 mg twice a day, BiDil 20/87.5 mg twice a day; IV hydralazine when necessary IV Lasix 40 mg daily Monitor electrolytes, replete as needed Start Pravastatin 80mg daily Pulmonary consult pending Continue allopurinol DVT PPX on Lovenox Advance Directives: No VTE prophylaxis?: Chemical Plan of care discussed with patient/family: Yes
[2019-01-07] MEDS ORDERED: LANTUS SUB-Q SCH (22:00)
[2019-01-07] MEDS ORDERED: NON-FORMULARY (Simvastatin 40 MG) PO SCH (22:00)
[2019-01-07] MEDS: COLACE PO SCH (22:21)
[2019-01-07] MEDS: PRAVACHOL PO SCH (22:21)
[2019-01-07] MEDS: BIDIL 20/37.5MG PO SCH (22:21)
[2019-01-07] MEDS: SOLU-Medrol IV SCH (22:22)
[2019-01-07] MEDS: COREG PO SCH (22:22)
[2019-01-07] MEDS: GLUCOPHAGE PO SCH (22:22)
[2019-01-07] MEDS: LOVENOX SUB-Q SCH (22:22)
[2019-01-07] MEDS: HumaLOG SUB-Q SCH (22:24)
[2019-01-07] MEDS: LEVAQUIN 500MG/100ML 500 MG/100 ML BAG IV SCH (22:24)
[2019-01-07] MEDS: SODIUM CHLORIDE FLUSH SYRINGE 10 ML IV SCH (22:24)
[2019-01-08] MEDS: DUONEB *Not for PRN Use IH SCH ×4 (02:10→21:48)
[2019-01-08 05:41] LABS: Hematocrit 35.4 % (30.3-42.9); Hemoglobin 11.5 gm/dl (10.1-14.3); Mean Corpuscular HGB Conc 32 % (30-34); Mean Corpuscular Volume 93 fl (79-97); Platelet Count 223 K/mm3 (140-440); Red Blood Count 3.83 M/mm3 (3.65-5.03); Red Cell Distribution Width 15.7 % (13.2-15.2)
[2019-01-08] MEDS: SOLU-Medrol IV SCH ×3 (05:44→21:44)
[2019-01-08] MEDS: LASIX IV SCH (05:45)
[2019-01-08 06:03] LABS: BUN/Creatinine Ratio 22; Blood Urea Nitrogen 20 mg/dL (7-17); Calcium 8.4 mg/dL (8.4-10.2); Hemolysis Index 3
[2019-01-08] MEDS: PULMICORT IH SCH ×2 (07:59→21:48)
[2019-01-08] MEDS: GLUCOPHAGE PO SCH ×2 (10:03→21:44)
[2019-01-08] MEDS: BIDIL 20/37.5MG PO SCH ×2 (10:03→21:44)
[2019-01-08] MEDS: COLACE PO SCH ×2 (10:03→21:43)
[2019-01-08] MEDS: K-DUR PO SCH (10:04)
[2019-01-08] MEDS: PROTONIX PO SCH (10:04)
[2019-01-08] MEDS: ZYLOPRIM PO SCH (10:04)
[2019-01-08] MEDS: COREG PO SCH ×2 (10:04→21:44)
[2019-01-08] MEDS: NORVASC PO SCH (10:04)
[2019-01-08] MEDS: BABY ASPIRIN PO SCH (10:04)
[2019-01-08] MEDS: SODIUM CHLORIDE FLUSH SYRINGE 10 ML IV SCH ×2 (10:05→21:45)
[2019-01-08] MEDS: HumaLOG SUB-Q SCH ×4 (10:58→21:45)
[2019-01-08 11:47] LABS: Band Neutrophils # (Manual) 0.1 K/mm3; Basophils % (Manual) 0 % (0.0-1.8); Eosinophils % (Manual) 0 % (0.0-4.3); Monocytes % (Manual) 0 % (0.0-7.3); Platelet Estimate Consistent w Auto; RBC Morphology Normal; Total Cells Counted 100
--- NOTE | 2019-01-08 14:07 | Progress Note ---
Assessment and Plan Assessment and plan: Acute on chronic respiratory failure Admitted to Telemetry supplemental Oxygen Pulm consulted. Her Puml is Get ABG COPD exacerbation solumedrol duoneb Lung mass was being evaluated as outpatient by Dr. Jackson Acute on chronic diastolic CHF lasix Consult cardiology Diabetes mellitus type 2. Accucheck q ac hs Full code status History Interval history: Shortness of breath History of lung mass Hospitalist Physical - Physical exam Narrative exam: Gen: Not in acute distress, lying in bed HEENT: Normocephalic, atraumatic Neck: supple, no JVD Heart: S1 and S2 reg, no murmurs, rubs or gallop Lungs: Decreased breath sounds bilat, bilat basal crackles, rhonchi Abd: soft, non tender, non distended, normal BS Ext: No edema, no clubbing, no cyanosis, Neuro: Awake,alert, oriented x 3 - Constitutional Vitals: Temp Pulse Resp BP Pulse Ox 98.2 F 84 20 134/79 91 01/08/19 08:21 01/08/19 10:04 01/08/19 08:21 01/08/19 10:04 01/08/19 08:21 Results - Labs CBC & Chem 7: 01/08/19 05:15 01/08/19 05:15 Labs: Laboratory Last Values WBC 7.2 K/mm3 (4.5-11.0) 01/08/19 05:15 RBC 3.83 M/mm3 (3.65-5.03) 01/08/19 05:15 Hgb 11.5 gm/dl (10.1-14.3) 01/08/19 05:15 Hct 35.4 % (30.3-42.9) 01/08/19 05:15 MCV 93 fl (79-97) 01/08/19 05:15 MCH 30 pg (28-32) 01/08/19 05:15 MCHC 32 % (30-34) 01/08/19 05:15 RDW 15.7 % (13.2-15.2) H 01/08/19 05:15 Plt Count 223 K/mm3 (140-440) 01/08/19 05:15 Lymph % (Auto) 18.0 % (13.4-35.0) 01/07/19 17:19 [place] % (Auto) 6.8 % (0.0-7.3) 01/07/19 17:19 Eos % (Auto) 1.3 % (0.0-4.3) 01/07/19 17:19 Baso % (Auto) 1.1 % (0.0-1.8) 01/07/19 17:19 Lymph # 1.3 K/mm3 (1.2-5.4) 01/07/19 17:19 [place] # 0.5 K/mm3 (0.0-0.8) 01/07/19 17:19 Eos # 0.1 K/mm3 (0.0-0.4) 01/07/19 17:19 Baso # 0.1 K/mm3 (0.0-0.1) 01/07/19 17:19 Add Manual Diff Complete 01/08/19 05:15 Total Counted 100 01/08/19 05:15 Seg Neutrophils % 72.8 % (40.0-70.0) H 01/07/19 17:19 Seg Neuts % (Manual) 92.0 % (40.0-70.0) H 01/08/19 05:15 1.0 % 01/08/19 05:15 7.0 % (13.4-35.0) L 01/08/19 05:15 Reactive Lymphs % (Man) 0 % 01/08/19 05:15 0 % (0.0-7.3) 01/08/19 05:15 0 % (0.0-4.3) 01/08/19 05:15 0 % (0.0-1.8) 01/08/19 05:15 0 % 01/08/19 05:15 0 % 01/08/19 05:15 0 % 01/08/19 05:15 0 % 01/08/19 05:15 Nucleated RBC % Not Reportable 01/08/19 05:15 Seg Neutrophils # 5.4 K/mm3 (1.8-7.7) 01/07/19 17:19 Seg Neutrophils # Man 6.6 K/mm3 (1.8-7.7) 01/08/19 05:15 Band Neutrophils # 0.1 K/mm3 01/08/19 05:15 0.5 K/mm3 (1.2-5.4) L 01/08/19 05:15 Abs React Lymphs (Man) 0.0 K/mm3 01/08/19 05:15 0.0 K/mm3 (0.0-0.8) 01/08/19 05:15 0.0 K/mm3 (0.0-0.4) 01/08/19 05:15 0.0 K/mm3 (0.0-0.1) 01/08/19 05:15 0.0 K/mm3 01/08/19 05:15 0.0 K/mm3 01/08/19 05:15 0.0 K/mm3 01/08/19 05:15 Blast Cells # 0.0 K/mm3 01/08/19 05:15 WBC Morphology Not Reportable 01/08/19 05:15 Hypersegmented Neuts Not Reportable 01/08/19 05:15 Hyposegmented Neuts Not Reportable 01/08/19 05:15 Hypogranular Neuts Not Reportable 01/08/19 05:15 Not Reportable 01/08/19 05:15 Not Reportable 01/08/19 05:15 Not Reportable 01/08/19 05:15 Not Reportable 01/08/19 05:15 Not Reportable 01/08/19 05:15 Not Reportable 01/08/19 05:15 Consistent w auto 01/08/19 05:15 Not Reportable 01/08/19 05:15 Plt Clumps, EDTA Not Reportable 01/08/19 05:15 Not Reportable 01/08/19 05:15 Not Reportable 01/08/19 05:15 Not Reportable 01/08/19 05:15 Plt Morphology Comment Not Reportable 01/08/19 05:15 RBC Morphology Normal 01/08/19 05:15 Dimorphic RBCs Not Reportable 01/08/19 05:15 Not Reportable 01/08/19 05:15 Not Reportable 01/08/19 05:15 Not Reportable 01/08/19 05:15 Not Reportable 01/08/19 05:15 Not Reportable 01/08/19 05:15 Not Reportable 01/08/19 05:15 Not Reportable 01/08/19 05:15 Not Reportable 01/08/19 05:15 Not Reportable 01/08/19 05:15 Not Reportable 01/08/19 05:15 Not Reportable 01/08/19 05:15 Not Reportable 01/08/19 05:15 Not Reportable 01/08/19 05:15 Not Reportable 01/08/19 05:15 Not Reportable 01/08/19 05:15 Not Reportable 01/08/19 05:15 Not Reportable 01/08/19 05:15 Not Reportable 01/08/19 05:15 Not Reportable 01/08/19 05:15 Acanthocytes (Spur) Not Reportable 01/08/19 05:15 Rouleaux Not Reportable 01/08/19 05:15 Not Reportable 01/08/19 05:15 Not Reportable 01/08/19 05:15 Not Reportable 01/08/19 05:15 Not Reportable 01/08/19 05:15 Hem Pathologist Commnt No 01/08/19 05:15 POC ABG pH 7.366 (7.35-7.45) 01/07/19 17:55 POC ABG pCO2 59.1 (35-45) H 01/07/19 17:55 POC ABG pO2 63 (80-105) L 01/07/19 17:55 POC ABG HCO3 33.8 (22-26 mml/L) 01/07/19 17:55 POC ABG Total CO2 36 (23-27mmol/L) 01/07/19 17:55 POC ABG O2 Sat 90 01/07/19 17:55 POC ABG Base Excess 8 ((-2) - (+3)mmol/L) 01/07/19 17:55 50 % 01/07/19 17:55 Sodium 139 mmol/L (137-145) 01/08/19 05:15 Potassium 4.5 mmol/L (3.6-5.0) 01/08/19 05:15 Chloride 96.5 mmol/L (98-107) L 01/08/19 05:15 Carbon Dioxide 33 mmol/L (22-30) H 01/08/19 05:15 14 mmol/L 01/08/19 05:15 BUN 20 mg/dL (7-17) H 01/08/19 05:15 0.9 mg/dL (0.7-1.2) 01/08/19 05:15 Estimated GFR > 60 ml/min 01/08/19 05:15 22 % 01/08/19 05:15 Glucose 391 mg/dL (65-100) H 01/08/19 05:15 POC Glucose 392 (70-105) H 01/08/19 12:20 11.0 % (4-6) H 01/07/19 17:19 Calcium 8.4 mg/dL (8.4-10.2) 01/08/19 05:15 Magnesium 2.50 mg/dL (1.7-2.3) H 01/07/19 17:19 0.80 mg/dL (0.1-1.2) 01/07/19 17:19 AST 17 units/L (5-40) 01/07/19 17: ALT 13 units/L (7-56) 01/07/19 17:19 119 units/L (35-129) 01/07/19 17:19 < 0.010 ng/mL (0.00-0.029) 01/07/19 17:19 7.0 g/dL (6.3-8.2) 01/07/19 17:19 2.9 g/dL (3.9-5) L 01/07/19 17:19 0.7 % 01/07/19 17:19 Active Medications - Current Medications Current Medications: Generic Name Dose Route Start Last Admin Trade Name Freq PRN Reason Stop Dose Admin Acetaminophen 650 mg 01/07/19 19:33 Tylenol PO Q4H PRN Pain MILD(1-3)/Fever >100.5/WANG Albuterol 2.5 mg 01/07/19 19:33 Proventil IH Q4HRT PRN Shortness Of Breath Albuterol/Ipratropium 1 ampul 01/07/19 20:00 01/08/19 07:59 Duoneb *Not For Prn Use* IH 1 ampul Q6HRT [place] Administration Allopurinol 300 mg 01/08/19 10:00 01/08/19 10:04 Zyloprim PO 300 mg DAILY [place] Administration Amlodipine Besylate 10 mg 01/08/19 10:00 01/08/19 10:04 Norvasc PO 10 mg DAILY [place] Administration Aspirin 81 mg 01/08/19 10:00 01/08/19 10:04 Baby Aspirin PO 81 mg QDAY [place] Administration Budesonide 0.5 mg 01/07/19 20:00 01/08/19 07:59 Pulmicort IH 0.5 mg Q12HRT [place] Administration Carvedilol 6.25 mg 01/07/19 22:00 01/08/19 10:04 Coreg PO 6.25 mg BID [place] Administration Dextrose 50 ml 01/07/19 19:35 D50w (25gm) Syringe IV PRN PRN Hypoglycemia Docusate Sodium 100 mg 01/07/19 22:00 01/08/19 10:03 Colace PO 100 mg BID [place] Administration Enoxaparin Sodium 40 mg 01/07/19 22:00 01/07/19 22:22 Lovenox SUB-Q 40 mg QDAY@2200 [place] Administration Furosemide 40 mg 01/08/19 06:00 01/08/19 05:45 Lasix IV 40 mg DAILY@0600 [place] Administration Hydralazine HCl 10 mg 01/07/19 19:38 Apresoline IV Q4HR PRN Blood Pressure Levofloxacin/Dextrose 500 mg in 100 mls @ 100 mls/hr 01/07/19 21:00 01/07/19 22:24 Levaquin 500mg/100ml IV 100 mls/hr Q24H [place] Administration Protocol Insulin Glargine 20 units 01/07/19 22:00 01/07/19 22:23 Lantus SUB-Q 20 units QHS [place] Administration Insulin Human Lispro 0 unit 01/07/19 22:00 01/08/19 12:33 Humalog SUB-Q 8 unit ACHS [place] Administration Protocol Isosorbide Dinitrate/Hydralazine 1 each 01/07/19 22:00 01/08/19 10:03 Bidil 20/37.5mg PO 1 each BID [place] Administration Metformin HCl 500 mg 01/07/19 22:00 01/08/19 10:03 Glucophage PO 500 mg BID [place] Administration Methylprednisolone Sodium Succinate 60 mg 01/07/19 22:00 01/08/19 13:54 Solu-Medrol IV 60 mg Q8HR [place] Administration Ondansetron HCl 4 mg 01/07/19 19:33 Zofran IV Q8H PRN Nausea And Vomiting Pantoprazole Sodium 40 mg 01/08/19 10:00 01/08/19 10:04 Protonix PO 40 mg QDAY [place] Administration Potassium Chloride 40 meq 01/08/19 10:00 01/08/19 10:04 K-Dur PO 40 meq DAILY [place] Administration Pravastatin Sodium 80 mg 01/07/19 22:00 01/07/19 22:21 Pravachol PO 80 mg QHS [place] Administration Sodium Chloride 10 ml 01/07/19 22:00 01/08/19 10:05 Sodium Chloride Flush Syringe 10 Ml IV 10 ml BID [place] Administration Sodium Chloride 10 ml 01/07/19 19:33 Sodium Chloride Flush Syringe 10 Ml IV PRN PRN LINE FLUSH
--- NOTE | 2019-01-08 15:18 | Consultation ---
History of Present Illness Consult date: 01/08/19 Requesting physician: SACHIN LOERA Reason for consult: dyspnea History of present illness: 53 y/o female, well known to our practice admitted with acute on chronic respiratory failure secondary to volume overload and CHF exacerbation. Patient does suffer from COPD and continues to smoke. She has been admitted to the hospital 5 times this year already. She usually responds to several days of high dose IV diuretic therapy and then is discharged. Baseline oxygen is 3-4 liters. Past History Past Medical History: COPD, diabetes, heart failure, hypertension, hyperlipid emia Past Surgical History: No surgical history Social history: other (recently quit smoking 2 months ago; previously smoked half a pack a day for over 20+ years) Medications and Allergies Allergies Allergy/AdvReac Type Severity Reaction Status Date / Time No Known Allergies Allergy Verified 08/01/13 21:57 Home Medications Medication Instructions Recorded Confirmed Last Taken Type ALBUTEROL Inhaler (OR & NICU) 1 puff IH Q4H PRN #1 inha 12/05/15 01/08/1905/20 Rx [ProAir HFA Inhaler] Allopurinol [Zyloprim] 300 mg PO DAILY #30 tablet 12/05/15 01/08/19 01/07/19 Rx Aspirin [Aspirin BABY CHEW TAB] 81 mg PO QDAY #30 tab.chew 12/05/15 01/08/1905/20 Rx Carvedilol [Coreg] 6.25 mg PO BID #60 tablet 12/05/15 01/08/19 01/07/19 Rx Furosemide [Lasix TAB] 40 mg PO QDAY #30 tablet 12/05/15 01/08/19 01/07/19 Rx Insulin Glargine [Lantus VIAL] 35 units SUB-Q QHS #10 units 12/05/15 01/08/19 01/06/19 Rx Ipratropium/Albuterol Sulfate 1 ampul IH TID #100 ampul.neb 12/05/15 01/08/19 01/07/19 Rx [DUONEB *Not for PRN Use*] Simvastatin [Zocor TAB] 40 mg PO QHS #30 tablet 12/05/15 01/08/19 01/06/19 Rx Albuterol *Only Ed* [Proventil 2.5 mg IH Q4HRT PRN #30 nebu 05/18/16 01/08/19 01/07/19 Rx 0.5% NEBS] Exenatide Microspheres [Bydureon 2 mg SQ QWEEK 11/01/18 01/08/19 Unknown History Bcise] Glimepiride [Amaryl] 4 mg PO DAILY 11/01/18 01/08/19 01/07/19 History Isosorb Dinit/Hydralazine [Bidil 1 tab PO BID 11/01/18 01/08/19 01/07/19 History 20/37.5MG] Pantoprazole [Protonix TAB] 40 mg PO QDAY 11/01/18 01/08/19 01/07/19 History amLODIPine [Norvasc] 10 mg PO DAILY 11/01/18 01/08/19 01/07/19 History metFORMIN [Glucophage] 500 mg PO BID 11/01/18 01/08/19 01/07/19 History Active Meds: Active Medications Acetaminophen (Tylenol) 650 mg PO Q4H PRN PRN Reason: Pain MILD(1-3)/Fever >100.5/WANG Albuterol (Proventil) 2.5 mg IH Q4HRT PRN PRN Reason: Shortness Of Breath Albuterol/Ipratropium (Duoneb *Not For Prn Use*) 1 ampul IH Q6HRT [facility] Last Admin: 01/08/19 14:10 Dose: 1 ampul Documented by: Allopurinol (Zyloprim) 300 mg PO DAILY [facility] Last Admin: 01/08/19 10:04 Dose: 300 mg Documented by: Amlodipine Besylate (Norvasc) 10 mg PO DAILY [facility] Last Admin: 01/08/19 10:04 Dose: 10 mg Documented by: Aspirin (Baby Aspirin) 81 mg PO QDAY [facility] Last Admin: 01/08/19 10:04 Dose: 81 mg Documented by: Budesonide (Pulmicort) 0.5 mg IH Q12HRT [facility] Last Admin: 01/08/19 07:59 Dose: 0.5 mg Documented by: Carvedilol (Coreg) 6.25 mg PO BID [facility] Last Admin: 01/08/19 10:04 Dose: 6.25 mg Documented by: Dextrose (D50w (25gm) Syringe) 50 ml IV PRN PRN PRN Reason: Hypoglycemia Docusate Sodium (Colace) 100 mg PO BID [facility] Last Admin: 01/08/19 10:03 Dose: 100 mg Documented by: Enoxaparin Sodium (Lovenox) 40 mg SUB-Q QDAY@2200 [facility] Last Admin: 01/07/19 22:22 Dose: 40 mg Documented by: Furosemide (Lasix) 40 mg IV DAILY@0600 [facility] Last Admin: 01/08/19 05:45 Dose: 40 mg Documented by: Hydralazine HCl (Apresoline) 10 mg IV Q4HR PRN PRN Reason: Blood Pressure Levofloxacin/Dextrose (Levaquin 500mg/100ml) 500 mg in 100 mls @ 100 mls/hr IV Q24H [facility]; Protocol Last Admin: 01/07/19 22:24 Dose: 100 mls/hr Documented by: Insulin Glargine (Lantus) 20 units SUB-Q QHS [facility] Last Admin: 01/07/19 22:23 Dose: 20 units Documented by: Insulin Human Lispro (Humalog) 0 unit SUB-Q ACHS [facility]; Protocol Last Admin: 01/08/19 12:33 Dose: 8 unit Documented by: Isosorbide Dinitrate/Hydralazine (Bidil 20/37.5mg) 1 each PO BID [facility] Last Admin: 01/08/19 10:03 Dose: 1 each Documented by: Metformin HCl (Glucophage) 500 mg PO BID [facility] Last Admin: 01/08/19 10:03 Dose: 500 mg Documented by: Methylprednisolone Sodium Succinate (Solu-Medrol) 60 mg IV Q8HR [facility] Last Admin: 01/08/19 13:54 Dose: 60 mg Documented by: Ondansetron HCl (Zofran) 4 mg IV Q8H PRN PRN Reason: Nausea And Vomiting Pantoprazole Sodium (Protonix) 40 mg PO QDAY [facility] Last Admin: 01/08/19 10:04 Dose: 40 mg Documented by: Potassium Chloride (K-Dur) 40 meq PO DAILY [facility] Last Admin: 01/08/19 10:04 Dose: 40 meq Documented by: Pravastatin Sodium (Pravachol) 80 mg PO QHS [facility] Last Admin: 01/07/19 22:21 Dose: 80 mg Documented by: Sodium Chloride (Sodium Chloride Flush Syringe 10 Ml) 10 ml IV BID [facility] Last Admin: 01/08/19 10:05 Dose: 10 ml Documented by: Sodium Chloride (Sodium Chloride Flush Syringe 10 Ml) 10 ml IV PRN PRN PRN Reason: LINE FLUSH Review of Systems Cardiovascular: chest pain (slash pressure) Physical Examination Vital signs: Vital Signs Temp Pulse Resp BP Pulse Ox 98.5 F 93 H 23 136/74 77 L 01/07/19 16:43 01/07/19 16:43 01/07/19 16:43 01/07/19 16:43 01/07/19 16:43 General appearance: no acute distress, alert, other (obese) Eyes: non-icteric ENT: oropharynx moist Neck: supple Effort: normal Ascultation: Bilateral: rales (at both bases) Percussion: Bilateral: not dull Tactile fremitus: Bilateral: normal Cardiovascular: regular rate and rhythm Gastrointestinal: normoactive bowel sounds, soft normal mental status, non-focal exam Results - Laboratory Findings CBC and BMP: 01/08/19 05:15 01/09/19 04:53 ABG POC ABG pH 7.366 (7.35-7.45) 01/07/19 17:55 POC ABG pCO2 59.1 (35-45) H 01/07/19 17:55 POC ABG pO2 63 (80-105) L 01/07/19 17:55 POC ABG HCO3 33.8 (22-26 mml/L) 01/07/19 17:55 POC ABG Total CO2 36 (23-27mmol/L) 01/07/19 17:55 POC ABG O2 Sat 90 01/07/19 17:55 Abnormal lab findings: Abnormal Labs 01/07/19 01/07/19 01/07/19 17:19 17:19 17:19 RDW 16.0 H Seg Neutrophils % 72.8 H Seg Neuts % (Manual) Lymphocytes % (Manual) Lymphocytes # (Manual) POC ABG pCO2 POC ABG pO2 Chloride 96.9 L Carbon Dioxide 32 H BUN Glucose 290 H POC Glucose Hemoglobin A1c 11.0 H Magnesium 2.50 H Albumin 2.9 L 01/07/19 01/07/19 01/08/19 17:55 21:18 05:15 RDW 15.7 H Seg Neutrophils % Seg Neuts % (Manual) 92.0 H Lymphocytes % (Manual) 7.0 L Lymphocytes # (Manual) 0.5 L POC ABG pCO2 59.1 H POC ABG pO2 63 L Chloride Carbon Dioxide BUN Glucose POC Glucose 269 H Hemoglobin A1c Magnesium Albumin 01/08/19 01/08/19 05:15 12:20 RDW Seg Neutrophils % Seg Neuts % (Manual) Lymphocytes % (Manual) Lymphocytes # (Manual) POC ABG pCO2 POC ABG pO2 Chloride 96.5 L Carbon Dioxide 33 H BUN 20 H Glucose 391 H POC Glucose 392 H Hemoglobin A1c Magnesium Albumin - Diagnostic Findings Chest x-ray: image reviewed (bilateral pleural effusions.) Assessment and Plan 53 y/o female with chronic respiratory failure, continued smoker, admitted with worsening dyspnea secondary to volume overload from CHF exacerbation. 1. Will stop steroids 2. Continue IV diuresis 3. Suggest strict I/O and volume restriction 4. Continue bronchodilators Thank you for this consult, will continue to follow along with you.
--- NOTE | 2019-01-08 15:55 | Consultation ---
History of Present Illness Consult date: 01/08/19 Consult reason: congestive heart failure History of present illness: Patient is a 53 year old woman with chronic lung disease on home oxygen therapy. She has congestive heart failure with a preserved ejection fraction and rheumatic mitral stenosis. An echocardiogram a month ago reports moderate mitral stenosis, mean gradient 8 mmHg, with a normal left ventricular ejection fraction 50-55%. She presented with with shortness of breath, respiratory failure, placed on Bipap in the emergency department. Chest x-ray reports cardiomegaly, interst itial edema with bilateral pleural effusions. Patient reports she was recently admitted to [facility] with similar symptoms. There is no chest pain, no lower extremity edema. Cardiology consultation was requested for further management. ECG is sinus rhythm with occasional PACs. Past History Past Medical History: diabetes, heart failure, hypertension, hyperlipidemia Past Surgical History: No surgical history Social history: other (recently quit smoking 2 months ago; previously smoked half a pack a day for over 20+ years) Medications and Allergies Allergies Allergy/AdvReac Type Severity Reaction Status Date / Time No Known Allergies Allergy Verified 08/01/13 21:57 Home Medications Medication Instructions Recorded Confirmed Last Taken Type ALBUTEROL Inhaler (OR & NICU) 1 puff IH Q4H PRN #1 inha 12/05/15 01/08/19 01/07/19 Rx [ProAir HFA Inhaler] Allopurinol [Zyloprim] 300 mg PO DAILY #30 tablet 12/05/15 01/08/19 01/07/19 Rx Aspirin [Aspirin BABY CHEW TAB] 81 mg PO QDAY #30 tab.chew 12/05/15 01/08/19 01/07/19 Rx Carvedilol [Coreg] 6.25 mg PO BID #60 tablet 12/05/15 01/08/19 01/07/19 Rx Furosemide [Lasix TAB] 40 mg PO QDAY #30 tablet 12/05/15 01/08/19 01/07/19 Rx Insulin Glargine [Lantus VIAL] 35 units SUB-Q QHS #10 units 12/05/15 01/08/19 01/06/19 Rx Ipratropium/Albuterol Sulfate 1 ampul IH TID #100 ampul.neb 12/05/15 01/08/19 01/07/19 Rx [DUONEB *Not for PRN Use*] Simvastatin [Zocor TAB] 40 mg PO QHS #30 tablet 12/05/15 01/08/19 01/06/19 Rx Albuterol *Only Ed* [Proventil 2.5 mg IH Q4HRT PRN #30 nebu 05/18/16 01/08/19 01/07/19 Rx 0.5% NEBS] Exenatide Microspheres [Bydureon 2 mg SQ QWEEK 11/01/18 01/08/19 Unknown History Bcise] Glimepiride [Amaryl] 4 mg PO DAILY 11/01/18 01/08/19 01/07/19 History Isosorb Dinit/Hydralazine [Bidil 1 tab PO BID 11/01/18 01/08/19 01/07/19 History 20/37.5MG] Pantoprazole [Protonix TAB] 40 mg PO QDAY 11/01/18 01/08/19 01/07/19 History amLODIPine [Norvasc] 10 mg PO DAILY 11/01/18 01/08/19 01/07/19 History metFORMIN [Glucophage] 500 mg PO BID 11/01/18 01/08/19 01/07/19 History Active Meds: Active Medications Acetaminophen (Tylenol) 650 mg PO Q4H PRN PRN Reason: Pain MILD(1-3)/Fever >100.5/WANG Albuterol (Proventil) 2.5 mg IH Q4HRT PRN PRN Reason: Shortness Of Breath Albuterol/Ipratropium (Duoneb *Not For Prn Use*) 1 ampul IH Q6HRT [facility] Last Admin: 01/08/19 14:10 Dose: 1 ampul Documented by: Allopurinol (Zyloprim) 300 mg PO DAILY [facility] Last Admin: 01/08/19 10:04 Dose: 300 mg Documented by: Amlodipine Besylate (Norvasc) 10 mg PO DAILY [facility] Last Admin: 01/08/19 10:04 Dose: 10 mg Documented by: Aspirin (Baby Aspirin) 81 mg PO QDAY [facility] Last Admin: 01/08/19 10:04 Dose: 81 mg Documented by: Budesonide (Pulmicort) 0.5 mg IH Q12HRT [facility] Last Admin: 01/08/19 07:59 Dose: 0.5 mg Documented by: Carvedilol (Coreg) 6.25 mg PO BID [facility] Last Admin: 01/08/19 10:04 Dose: 6.25 mg Documented by: Dextrose (D50w (25gm) Syringe) 50 ml IV PRN PRN PRN Reason: Hypoglycemia Docusate Sodium (Colace) 100 mg PO BID [facility] Last Admin: 01/08/19 10:03 Dose: 100 mg Documented by: Enoxaparin Sodium (Lovenox) 40 mg SUB-Q QDAY@2200 [facility] Last Admin: 01/07/19 22:22 Dose: 40 mg Documented by: Furosemide (Lasix) 40 mg IV DAILY@0600 [facility] Last Admin: 01/08/19 05:45 Dose: 40 mg Documented by: Hydralazine HCl (Apresoline) 10 mg IV Q4HR PRN PRN Reason: Blood Pressure Levofloxacin/Dextrose (Levaquin 500mg/100ml) 500 mg in 100 mls @ 100 mls/hr IV Q24H [facility]; Protocol Last Admin: 01/07/19 22:24 Dose: 100 mls/hr Documented by: Insulin Glargine (Lantus) 20 units SUB-Q QHS [facility] Last Admin: 01/07/19 22:23 Dose: 20 units Documented by: Insulin Human Lispro (Humalog) 0 unit SUB-Q ACHS [facility]; Protocol Last Admin: 01/08/19 12:33 Dose: 8 unit Documented by: Isosorbide Dinitrate/Hydralazine (Bidil 20/37.5mg) 1 each PO BID [facility] Last Admin: 01/08/19 10:03 Dose: 1 each Documented by: Metformin HCl (Glucophage) 500 mg PO BID [facility] Last Admin: 01/08/19 10:03 Dose: 500 mg Documented by: Methylprednisolone Sodium Succinate (Solu-Medrol) 60 mg IV Q8HR [facility] Last Admin: 01/08/19 13:54 Dose: 60 mg Documented by: Ondansetron HCl (Zofran) 4 mg IV Q8H PRN PRN Reason: Nausea And Vomiting Pantoprazole Sodium (Protonix) 40 mg PO QDAY [facility] Last Admin: 01/08/19 10:04 Dose: 40 mg Documented by: Potassium Chloride (K-Dur) 40 meq PO DAILY [facility] Last Admin: 01/08/19 10:04 Dose: 40 meq Documented by: Pravastatin Sodium (Pravachol) 80 mg PO QHS [facility] Last Admin: 01/07/19 22:21 Dose: 80 mg Documented by: Sodium Chloride (Sodium Chloride Flush Syringe 10 Ml) 10 ml IV BID [facility] Last Admin: 01/08/19 10:05 Dose: 10 ml Documented by: Sodium Chloride (Sodium Chloride Flush Syringe 10 Ml) 10 ml IV PRN PRN PRN Reason: LINE FLUSH Physical Examination Vital Signs Temp Pulse Resp BP Pulse Ox 98.5 F 93 H 23 136/74 77 L 01/07/19 16:43 01/07/19 16:43 01/07/19 16:43 01/07/19 16:43 01/07/19 16:43 General appearance: no acute distress HEENT: Positive: PERRL Neck: Positive: trachea midline Cardiac: Positive: Reg Rate and Rhythm Lungs: Positive: Decreased Breath Sounds Neuro: Positive: Grossly Intact Extremities: Absent: edema Results 01/08/19 05:15 01/08/19 05:15 Cardiac Enzymes 01/07/19 Range/Units 17:19 AST 17 (5-40) units/L CBC 01/07/19 01/08/19 Range/Units 17:19 05:15 WBC 7.3 7.2 (4.5-11.0) K/mm3 RBC 4.11 3.83 (3.65-5.03) M/mm3 Hgb 12.5 11.5 (10.1-14.3) gm/dl Hct 37.7 35.4 (30.3-42.9) % Plt Count 261 223 (140-440) K/mm3 Lymph # 1.3 (1.2-5.4) K/mm3 [place] # 0.5 (0.0-0.8) K/mm3 Eos # 0.1 (0.0-0.4) K/mm3 Baso # 0.1 (0.0-0.1) K/mm3 Comprehensive Metabolic Panel 01/07/19 01/08/19 Range/Units 17:19 05:15 Sodium 137 139 (137-145) mmol/L Potassium 4.0 4.5 (3.6-5.0) mmol/L Chloride 96.9 L 96.5 L (98-107) mmol/L Carbon Dioxide 32 H 33 H (22-30) mmol/L BUN 15 20 H (7-17) mg/dL Creatinine 0.7 0.9 (0.7-1.2) mg/dL Glucose 290 H 391 H (65-100) mg/dL Calcium 8.5 8.4 (8.4-10.2) mg/dL AST 17 (5-40) units/L ALT 13 (7-56) units/L Alkaline Phosphatase 119 (35-129) units/L Total Protein 7.0 (6.3-8.2) g/dL Albumin 2.9 L (3.9-5) g/dL Assessment and Plan Acute respiratory failure COPD exacerbation Congestive heart failure with preserved EF Hypertension Moderate Mitral stenosis Diabetes
[2019-01-08] MEDS: LEVAQUIN 500MG/100ML 500 MG/100 ML BAG IV SCH (21:42)
[2019-01-08] MEDS: LOVENOX SUB-Q SCH (21:43)
[2019-01-08] MEDS: LANTUS SUB-Q SCH (21:43)
[2019-01-08] MEDS: PRAVACHOL PO SCH (21:45)
[2019-01-09] MEDS: DUONEB *Not for PRN Use IH SCH ×4 (04:17→20:22)
[2019-01-09] MEDS: SOLU-Medrol IV SCH ×3 (06:09→21:59)
[2019-01-09] MEDS: LASIX IV SCH (06:10)
[2019-01-09 06:27] LABS: BUN/Creatinine Ratio 28; Blood Urea Nitrogen 25 mg/dL (7-17); Calcium 8.9 mg/dL (8.4-10.2); Hemolysis Index 3
[2019-01-09] MEDS: PULMICORT IH SCH ×2 (07:33→20:22)
--- NOTE | 2019-01-09 08:45 | Progress Note ---
Assessment and Plan Shortness of breath - reason for admission Patient admits non-compliance with fluid restriction Patient discahrged from [facility] last month with plan to undergo ischemic evaluation with L/RHC as outpatient Chronic combined systolic and diastolic heart failure Severe COPD on home oxygen therapy 4 L NC Cor Pulmonale and Pulmonary hypertension (WHO group II and III) Mitral stenosis moderate by echo 08/2018 with a mean gradient of 7 mm Hg and a MVA of 1.66 cm2 by PHT Anemia - mild Type II DM Uncontrolled blood sugar Echo done at [facility] 08/2018: EF 40 - 45%. Elevated LVEDP. Elevated LAP. Systolic and diastolic septal flattening c/w RV volume and pressure overload. RV mildly to moderately dilated. RV systolic function is mildly to moderately reduced. Moderate Bi-atrial dilation Moderate Pul HTN Recommendations: Continue IV diuresis and afterload reduction Continue inhaler therapy LHC and RHC is warranted on friday to evaluate coronary anatomy and filling pressures Subjective Date of service: 01/09/19 Principal diagnosis: Shortness of breath Interval history: Patient is feeling better this morning Shortness of breath is improving No events on tele Objective Vital Signs Temp Pulse Pulse Pulse Resp Resp Resp 01/09/19 07:16 97.5 F L 66 16 01/09/19 04:31 76 17 01/09/19 04:19 98.4 F 74 18 01/09/19 04:17 74 16 01/09/19 02:00 98 H 01/08/19 23:44 98.1 F 86 18 01/08/19 23:43 01/08/19 23:31 18 01/08/19 22:33 18 01/08/19 22:31 18 01/08/19 22:25 96 H 18 01/08/19 22:05 97 H 17 01/08/19 21:57 01/08/19 21:49 93 H 15 01/08/19 21:44 96 H 01/08/19 19:21 98.3 F 96 H 18 01/08/19 18:36 101 H 01/08/19 16:48 98.4 F 99 H 20 01/08/19 14:20 98 H 20 01/08/19 14:10 108 H 20 01/08/19 12:09 97.9 F 90 18 01/08/19 12:00 81 01/08/19 10:04 84 01/08/19 10:03 84 BP Pulse Ox 01/09/19 07:16 134/82 99 01/09/19 04:31 01/09/19 04:19 119/71 97 01/09/19 04:17 01/09/19 02:00 01/08/19 23:44 117/69 96 01/08/19 23:43 94 01/08/19 23:31 01/08/19 22:33 01/08/19 22:31 01/08/19 22:25 94 01/08/19 22:05 01/08/19 21:57 91 01/08/19 21:49 01/08/19 21:44 144/92 01/08/19 19:21 144/92 94 01/08/19 18:36 01/08/19 16:48 124/70 91 01/08/19 14:20 01/08/19 14:10 01/08/19 12:09 110/69 92 01/08/19 12:00 01/08/19 10:04 134/79 01/08/19 10:03 134/79 - Physical Examination HEENT: Positive: PERRL Neck: Positive: trachea midline Cardiac: Positive: Reg Rate and Rhythm Lungs: Positive: Normal Exam Neuro: Positive: Grossly Intact Extremities: Absent: edema - Labs and Meds Comprehensive Metabolic Panel 01/09/19 Range/Units 04:53 Sodium 138 (137-145) mmol/L Potassium 4.6 (3.6-5.0) mmol/L Chloride 98.6 (98-107) mmol/L Carbon Dioxide 31 H (22-30) mmol/L BUN 25 H (7-17) mg/dL Creatinine 0.9 (0.7-1.2) mg/dL Glucose 265 H (65-100) mg/dL Calcium 8.9 (8.4-10.2) mg/dL - Imaging and Cardiology EKG: image reviewed (sinus rhythm at 87 bpm, atrial premature complexes, probable left atrial enlargement and anteroseptal infarct age undetermined)
[2019-01-09] MEDS: HumaLOG SUB-Q SCH ×4 (08:46→22:26)
--- NOTE | 2019-01-09 09:18 | Progress Note ---
Assessment and Plan Assessment and plan: Acute on chronic respiratory failure Admitted to Telemetry supplemental Oxygen Pulm consulted, following. Her Pulmonology is COPD exacerbation solumedrol iv duoneb Lung mass was being evaluated as outpatient by Dr. Jackson Acute on chronic diastolic CHF [facility] Cardiology following Positive blood cultures 1 in 4 Will repeat Diabetes mellitus type 2. Accucheck q ac hs Full code status History Interval history: less Shortness of breath History of lung mass called by Nurse with positive blood culture Hospitalist Physical - Physical exam Narrative exam: Gen: Not in acute distress, lying in bed HEENT: Normocephalic, atraumatic Neck: supple, no JVD Heart: S1 and S2 reg, no murmurs, rubs or gallop Lungs: Decreased breath sounds bilat, bilat basal crackles, rhonchi Abd: soft, non tender, non distended, normal BS Ext: No edema, no clubbing, no cyanosis, Neuro: Awake,alert, oriented x 3 - Constitutional Vitals: Temp Pulse Resp BP Pulse Ox 97.5 F L 66 16 134/82 99 01/09/19 07:16 01/09/19 07:16 01/09/19 07:16 01/09/19 07:16 01/09/19 07:16 General appearance: Present: no acute distress Results - Labs CBC & Chem 7: 01/08/19 05:15 01/09/19 04:53 Labs: Laboratory Last Values WBC 7.2 K/mm3 (4.5-11.0) 01/08/19 05:15 RBC 3.83 M/mm3 (3.65-5.03) 01/08/19 05:15 Hgb 11.5 gm/dl (10.1-14.3) 01/08/19 05:15 Hct 35.4 % (30.3-42.9) 01/08/19 05:15 MCV 93 fl (79-97) 01/08/19 05:15 MCH 30 pg (28-32) 01/08/19 05:15 MCHC 32 % (30-34) 01/08/19 05:15 RDW 15.7 % (13.2-15.2) H 01/08/19 05:15 Plt Count 223 K/mm3 (140-440) 01/08/19 05:15 Lymph % (Auto) 18.0 % (13.4-35.0) 01/07/19 17:19 [place] % (Auto) 6.8 % (0.0-7.3) 01/07/19 17:19 Eos % (Auto) 1.3 % (0.0-4.3) 01/07/19 17:19 Baso % (Auto) 1.1 % (0.0-1.8) 01/07/19 17:19 Lymph # 1.3 K/mm3 (1.2-5.4) 01/07/19 17:19 [place] # 0.5 K/mm3 (0.0-0.8) 01/07/19 17:19 Eos # 0.1 K/mm3 (0.0-0.4) 01/07/19 17:19 Baso # 0.1 K/mm3 (0.0-0.1) 01/07/19 17:19 Add Manual Diff Complete 01/08/19 05:15 Total Counted 100 01/08/19 05:15 Seg Neutrophils % 72.8 % (40.0-70.0) H 01/07/19 17:19 Seg Neuts % (Manual) 92.0 % (40.0-70.0) H 01/08/19 05:15 1.0 % 01/08/19 05:15 7.0 % (13.4-35.0) L 01/08/19 05:15 Reactive Lymphs % (Man) 0 % 01/08/19 05:15 0 % (0.0-7.3) 01/08/19 05:15 0 % (0.0-4.3) 01/08/19 05:15 0 % (0.0-1.8) 01/08/19 05:15 0 % 01/08/19 05:15 0 % 01/08/19 05:15 0 % 01/08/19 05:15 0 % 01/08/19 05:15 Nucleated RBC % Not Reportable 01/08/19 05:15 Seg Neutrophils # 5.4 K/mm3 (1.8-7.7) 01/07/19 17:19 Seg Neutrophils # Man 6.6 K/mm3 (1.8-7.7) 01/08/19 05:15 Band Neutrophils # 0.1 K/mm3 01/08/19 05:15 0.5 K/mm3 (1.2-5.4) L 01/08/19 05:15 Abs React Lymphs (Man) 0.0 K/mm3 01/08/19 05:15 0.0 K/mm3 (0.0-0.8) 01/08/19 05:15 0.0 K/mm3 (0.0-0.4) 01/08/19 05:15 0.0 K/mm3 (0.0-0.1) 01/08/19 05:15 0.0 K/mm3 01/08/19 05:15 0.0 K/mm3 01/08/19 05:15 0.0 K/mm3 01/08/19 05:15 Blast Cells # 0.0 K/mm3 01/08/19 05:15 WBC Morphology Not Reportable 01/08/19 05:15 Hypersegmented Neuts Not Reportable 01/08/19 05:15 Hyposegmented Neuts Not Reportable 01/08/19 05:15 Hypogranular Neuts Not Reportable 01/08/19 05:15 Not Reportable 01/08/19 05:15 Not Reportable 01/08/19 05:15 Not Reportable 01/08/19 05:15 Not Reportable 01/08/19 05:15 Not Reportable 01/08/19 05:15 Not Reportable 01/08/19 05:15 Consistent w auto 01/08/19 05:15 Not Reportable 01/08/19 05:15 Plt Clumps, EDTA Not Reportable 01/08/19 05:15 Not Reportable 01/08/19 05:15 Not Reportable 01/08/19 05:15 Not Reportable 01/08/19 05:15 Plt Morphology Comment Not Reportable 01/08/19 05:15 RBC Morphology Normal 01/08/19 05:15 Dimorphic RBCs Not Reportable 01/08/19 05:15 Not Reportable 01/08/19 05:15 Not Reportable 01/08/19 05:15 Not Reportable 01/08/19 05:15 Not Reportable 01/08/19 05:15 Not Reportable 01/08/19 05:15 Not Reportable 01/08/19 05:15 Not Reportable 01/08/19 05:15 Not Reportable 01/08/19 05:15 Not Reportable 01/08/19 05:15 Not Reportable 01/08/19 05:15 Not Reportable 01/08/19 05:15 Not Reportable 01/08/19 05:15 Not Reportable 01/08/19 05:15 Not Reportable 01/08/19 05:15 Not Reportable 01/08/19 05:15 Not Reportable 01/08/19 05:15 Not Reportable 01/08/19 05:15 Not Reportable 01/08/19 05:15 Not Reportable 01/08/19 05:15 Acanthocytes (Spur) Not Reportable 01/08/19 05:15 Rouleaux Not Reportable 01/08/19 05:15 Not Reportable 01/08/19 05:15 Not Reportable 01/08/19 05:15 Not Reportable 01/08/19 05:15 Not Reportable 01/08/19 05:15 Hem Pathologist Commnt No 01/08/19 05:15 POC ABG pH 7.366 (7.35-7.45) 01/07/19 17:55 POC ABG pCO2 59.1 (35-45) H 01/07/19 17:55 POC ABG pO2 63 (80-105) L 01/07/19 17:55 POC ABG HCO3 33.8 (22-26 mml/L) 01/07/19 17:55 POC ABG Total CO2 36 (23-27mmol/L) 01/07/19 17:55 POC ABG O2 Sat 90 01/07/19 17:55 POC ABG Base Excess 8 ((-2) - (+3)mmol/L) 01/07/19 17:55 50 % 01/07/19 17:55 Sodium 138 mmol/L (137-145) 01/09/19 04:53 Potassium 4.6 mmol/L (3.6-5.0) 01/09/19 04:53 Chloride 98.6 mmol/L (98-107) 01/09/19 04:53 Carbon Dioxide 31 mmol/L (22-30) H 01/09/19 04:53 13 mmol/L 01/09/19 04:53 BUN 25 mg/dL (7-17) H 01/09/19 04:53 0.9 mg/dL (0.7-1.2) 01/09/19 04:53 Estimated GFR > 60 ml/min 01/09/19 04:53 28 % 01/09/19 04:53 Glucose 265 mg/dL (65-100) H 01/09/19 04:53 POC Glucose 243 (70-105) H 01/09/19 07:22 11.0 % (4-6) H 01/07/19 17:19 Calcium 8.9 mg/dL (8.4-10.2) 01/09/19 04:53 Magnesium 2.50 mg/dL (1.7-2.3) H 01/07/19 17:19 0.80 mg/dL (0.1-1.2) 01/07/19 17:19 AST 17 units/L (5-40) 01/07/19 17:19 ALT 13 units/L (7-56) 01/07/19 17:19 119 units/L (35-129) 01/07/19 17:19 < 0.010 ng/mL (0.00-0.029) 01/07/19 17:19 7.0 g/dL (6.3-8.2) 01/07/19 17:19 2.9 g/dL (3.9-5) L 01/07/19 17:19 0.7 % 01/07/19 17:19 Active Medications - Current Medications Current Medications: Generic Name Dose Route Start Last Admin Trade Name Freq PRN Reason Stop Dose Admin Acetaminophen 650 mg 01/07/19 19:33 01/08/19 22:31 Tylenol PO 650 mg Q4H PRN Administration Pain MILD(1-3)/Fever >100.5/WANG Albuterol 2.5 mg 01/07/19 19:33 Proventil IH Q4HRT PRN Shortness Of Breath Albuterol/Ipratropium 1 ampul 01/07/19 20:00 01/09/19 07:33 Duoneb *Not For Prn Use* IH 1 ampul Q6HRT [place]IRA Administration Allopurinol 300 mg 01/08/19 10:00 01/08/19 10:04 Zyloprim PO 300 mg DAILY [place]IRA Administration Amlodipine Besylate 10 mg 01/08/19 10:00 01/08/19 10:04 Norvasc PO 10 mg DAILY [place]A Administration Aspirin 81 mg 01/08/19 10:00 01/08/19 10:04 Baby Aspirin PO 81 mg QDAY [place]IRA Administration Budesonide 0.5 mg 01/07/19 20:00 01/09/19 07:33 Pulmicort IH 0.5 mg Q12HRT [place]A Administration Carvedilol 6.25 mg 01/07/19 22:00 01/08/19 21:44 Coreg PO 6.25 mg BID [place]A Administration Dextrose 50 ml 01/07/19 19:35 D50w (25gm) Syringe IV PRN PRN Hypoglycemia Docusate Sodium 100 mg 01/07/19 22:00 01/08/19 21:43 Colace PO 100 mg BID [place]IRA Administration Enoxaparin Sodium 40 mg 01/07/19 22:00 01/08/19 21:43 Lovenox SUB-Q 40 mg QDAY@2200 [place]IRA Administration Furosemide 40 mg 01/08/19 06:00 01/09/19 06:10 Lasix IV 40 mg DAILY@0600 [place]IRA Administration Hydralazine HCl 10 mg 01/07/19 19:38 Apresoline IV Q4HR PRN Blood Pressure Levofloxacin/Dextrose 500 mg in 100 mls @ 100 mls/hr 01/07/19 21:00 01/08/19 21:42 Levaquin 500mg/100ml IV 100 mls/hr Q24H [place]A Administration Protocol Insulin Glargine 35 units 01/08/19 18:24 01/08/19 21:43 Lantus SUB-Q 35 units QHS [place]A Administration Insulin Human Lispro 0 unit 01/07/19 22:00 01/09/19 08:46 Humalog SUB-Q 3 unit ACHS [place]IRA Administration Protocol Isosorbide Dinitrate/Hydralazine 1 each 01/07/19 22:00 01/08/19 21:44 Bidil 20/37.5mg PO 1 each BID ELIMRA Administration Metformin HCl 500 mg 01/07/19 22:00 01/08/19 21:44 Glucophage PO 500 mg BID [place] Administration Methylprednisolone Sodium Succinate 60 mg 01/07/19 22:00 01/09/19 06:09 Solu-Medrol IV 60 mg Q8HR [place] Administration Ondansetron HCl 4 mg 01/07/19 19:33 Zofran IV Q8H PRN Nausea And Vomiting Pantoprazole Sodium 40 mg 01/08/19 10:00 01/08/19 10:04 Protonix PO 40 mg QDAY [place]IRA Administration Potassium Chloride 40 meq 01/08/19 10:00 01/08/19 10:04 K-Dur PO 40 meq DAILY [place]A Administration Pravastatin Sodium 80 mg 01/07/19 22:00 01/08/19 21:45 Pravachol PO 80 mg QHS [place] Administration Sodium Chloride 10 ml 01/07/19 22:00 01/08/19 21:45 Sodium Chloride Flush Syringe 10 Ml IV 10 ml BID [place] Administration Sodium Chloride 10 ml 01/07/19 19:33 Sodium Chloride Flush Syringe 10 Ml IV PRN PRN LINE FLUSH Nutrition/Malnutrition Assess - Dietary Evaluation Nutrition/Malnutrition Findings: Nutrition Notes Start: 01/08/19 16:31 Freq: Status: Active Protocol: Document 01/08/19 16:31 RM (Rec: 01/08/19 16:34 RM [id number]) Nutrition Notes Need for Assessment generated from: MD Order,Education Initial or Follow up Assessment Current Diagnosis COPD,Diabetes,Hypertension, Heart Failure,Hyperlipidemia Labs/Tests A1c 11 Subjective/Other Information Consulted for DM diet education. Pt stated that she had been previously educated but was not taught carbohydrate counting. Reviewed DM diet education. Gave handout. #1 Nutrition Diagnosis Food and nutrition-related knowledge deficit Etiology inadequate prior education As Evidenced by Signs and Symptoms pt desire for education Nutrition Intervention Teaching Recipient Patient Learning Readiness Good Teaching Methods Discussion,Handout Response to Teaching Verbalize understanding Education Handouts Provided Carbohydrate Counting for People with Diabetes Barriers to Learning No Barriers RD phone number provided Yes Patient aware of follow up options Yes Goal #1 Utilize carbohydrate counting Revisit per MD consult or patient Sign Off request:
[2019-01-09] MEDS: COLACE PO SCH ×2 (09:48→21:58)
[2019-01-09] MEDS: K-DUR PO SCH (09:48)
[2019-01-09] MEDS: PROTONIX PO SCH (09:48)
[2019-01-09] MEDS: BABY ASPIRIN PO SCH (09:48)
[2019-01-09] MEDS: ZYLOPRIM PO SCH (09:49)
[2019-01-09] MEDS: COREG PO SCH ×2 (09:49→21:58)
[2019-01-09] MEDS: GLUCOPHAGE PO SCH ×2 (09:49→21:58)
[2019-01-09] MEDS: NORVASC PO SCH (09:50)
[2019-01-09] MEDS: BIDIL 20/37.5MG PO SCH ×2 (09:50→21:58)
[2019-01-09] MEDS: SODIUM CHLORIDE FLUSH SYRINGE 10 ML IV SCH ×2 (09:52→22:03)
[2019-01-09] MEDS ORDERED: VANCOMYCIN PHARMACY TO DOSE IV SCH (11:00)
[2019-01-09] MEDS ORDERED: VANCOMYCIN 2,000 MG in NACL 0.9% 500 ML 500 ML IV ONE (12:00)
--- NOTE | 2019-01-09 13:45 | Progress Note ---
Assessment and Plan 53 y/o female with chronic respiratory failure, continued smoker, admitted with worsening dyspnea secondary to volume overload from CHF exacerbation. 1. Reviewed Cards note and appreciate their help. 2. Continue IV diuresis 3. Suggest strict I/O and volume restriction 4. Continue bronchodilators Thank you for this consult, will continue to follow along with you. Subjective Date of service: 01/09/19 Principal diagnosis: Shortness of breath Interval history: No acute events. Patient trying to relay cards message from this am but will review their note. Daughter at bedside. Objective Vital Signs - 12hr 01/09/19 01/09/19 01/09/19 02:00 04:17 04:19 Temperature 98.4 F Pulse Rate 98 H 74 Pulse Rate [ 74 Anterior Bilateral] Respiratory 18 Rate Respiratory 16 Rate [Anterior Bilateral] Blood Pressure 119/71 O2 Sat by Pulse 97 Oximetry 01/09/19 01/09/19 01/09/19 04:31 07:16 07:33 Temperature 97.5 F L Pulse Rate 66 Pulse Rate [ 76 74 Anterior Bilateral] Respiratory 16 Rate Respiratory 17 20 Rate [Anterior Bilateral] Blood Pressure 134/82 O2 Sat by Pulse 99 95 Oximetry 01/09/19 01/09/19 01/09/19 07:43 09:49 09:50 Temperature Pulse Rate 82 82 Pulse Rate [ 67 Anterior Bilateral] Respiratory Rate Respiratory 20 Rate [Anterior Bilateral] Blood Pressure 134/82 134/82 O2 Sat by Pulse Oximetry 01/09/19 01/09/19 10:00 12:59 Temperature Pulse Rate Pulse Rate [ 89 Anterior Bilateral] Respiratory 18 Rate Respiratory 20 Rate [Anterior Bilateral] Blood Pressure O2 Sat by Pulse Oximetry Constitutional: no acute distress, alert, other (obese) Eyes: non-icteric ENT: oropharynx moist Neck: supple Effort: normal Ascultation: Bilateral: rales (at both bases) Percussion: Bilateral: not dull Tactile fremitus: Bilateral: normal Cardiovascular: regular rate and rhythm Gastrointestinal: normoactive bowel sounds, soft Neurologic: normal mental status, non-focal exam CBC and BMP: 01/08/19 05:15 01/09/19 04:53 ABG, PT/INR, D-dimer: ABG POC ABG pH 7.366 (7.35-7.45) 01/07/19 17:55 POC ABG pCO2 59.1 (35-45) H 01/07/19 17:55 POC ABG pO2 63 (80-105) L 01/07/19 17:55 POC ABG HCO3 33.8 (22-26 mml/L) 01/07/19 17:55 POC ABG Total CO2 36 (23-27mmol/L) 01/07/19 17:55 POC ABG O2 Sat 90 01/07/19 17:55 Abnormal lab findings: Abnormal Labs 01/07/19 01/07/19 01/07/19 17:19 17:19 17:19 RDW 16.0 H Seg Neutrophils % 72.8 H Seg Neuts % (Manual) Lymphocytes % (Manual) Lymphocytes # (Manual) POC ABG pCO2 POC ABG pO2 Chloride 96.9 L Carbon Dioxide 32 H BUN Glucose 290 H POC Glucose Hemoglobin A1c 11.0 H Magnesium 2.50 H Albumin 2.9 L 01/07/19 01/07/19 01/08/19 17:55 21:18 05:15 RDW 15.7 H Seg Neutrophils % Seg Neuts % (Manual) 92.0 H Lymphocytes % (Manual) 7.0 L Lymphocytes # (Manual) 0.5 L POC ABG pCO2 59.1 H POC ABG pO2 63 L Chloride Carbon Dioxide BUN Glucose POC Glucose 269 H Hemoglobin A1c Magnesium Albumin 01/08/19 01/08/19 01/08/19 05:15 12:20 17:42 RDW Seg Neutrophils % Seg Neuts % (Manual) Lymphocytes % (Manual) Lymphocytes # (Manual) POC ABG pCO2 POC ABG pO2 Chloride 96.5 L Carbon Dioxide 33 H BUN 20 H Glucose 391 H POC Glucose 392 H 423 H Hemoglobin A1c Magnesium Albumin 01/08/19 01/09/19 01/09/19 21:11 04:53 07:22 RDW Seg Neutrophils % Seg Neuts % (Manual) Lymphocytes % (Manual) Lymphocytes # (Manual) POC ABG pCO2 POC ABG pO2 Chloride Carbon Dioxide 31 H BUN 25 H Glucose 265 H POC Glucose 421 H 243 H Hemoglobin A1c Magnesium Albumin 01/09/19 11:47 RDW Seg Neutrophils % Seg Neuts % (Manual) Lymphocytes % (Manual) Lymphocytes # (Manual) POC ABG pCO2 POC ABG pO2 Chloride Carbon Dioxide BUN Glucose POC Glucose 282 H Hemoglobin A1c Magnesium Albumin
[2019-01-09] MEDS: LOVENOX SUB-Q SCH (21:57)
[2019-01-09] MEDS: PRAVACHOL PO SCH (21:58)
[2019-01-09] MEDS: LEVAQUIN 500MG/100ML 500 MG/100 ML BAG IV SCH (22:02)
[2019-01-09] MEDS: LANTUS SUB-Q SCH (22:26)
[2019-01-10] MEDS: VANCOMYCIN 1,500 MG in NACL 0.9% 500 ML 500 ML IV SCH ×3 (00:17→23:30)
[2019-01-10] MEDS: DUONEB *Not for PRN Use IH SCH ×4 (01:57→21:26)
[2019-01-10] MEDS: LASIX IV SCH (06:23)
[2019-01-10] MEDS: SOLU-Medrol IV SCH ×3 (06:23→21:29)
[2019-01-10] MEDS: PULMICORT IH SCH ×2 (07:36→21:26)
[2019-01-10] MEDS: ZYLOPRIM PO SCH (09:55)
[2019-01-10] MEDS: COREG PO SCH ×2 (09:55→21:31)
[2019-01-10] MEDS: PROTONIX PO SCH (09:55)
[2019-01-10] MEDS: BABY ASPIRIN PO SCH (09:55)
[2019-01-10] MEDS: GLUCOPHAGE PO SCH ×2 (09:55→21:32)
[2019-01-10] MEDS: BIDIL 20/37.5MG PO SCH ×2 (09:55→21:31)
[2019-01-10] MEDS: NORVASC PO SCH (09:55)
[2019-01-10] MEDS: HumaLOG SUB-Q SCH ×4 (09:56→21:57)
[2019-01-10] MEDS: COLACE PO SCH ×2 (09:56→21:31)
[2019-01-10] MEDS: K-DUR PO SCH (09:56)
[2019-01-10] MEDS: SODIUM CHLORIDE FLUSH SYRINGE 10 ML IV SCH ×2 (09:57→21:33)
--- NOTE | 2019-01-10 10:45 | Progress Note ---
Assessment and Plan - Patient Problems (1) Acute on chronic systolic congestive heart failure Current Visit: Yes Status: Acute (2) Diabetes Current Visit: No Status: Chronic Qualifiers: Diabetes mellitus type: type 2 Diabetes mellitus complication status: with circulatory complication (3) Hyperlipidemia Current Visit: No Status: Chronic (4) Hypertension Current Visit: No Status: Chronic Qualifiers: Hypertension type: essential hypertension Qualified Code(s): I10 - Essential (primary) hypertension Subjective Date of service: 01/10/19 Principal diagnosis: Shortness of breath Interval history: BREATHING BETTER NOCP Objective Vital Signs Temp Pulse Pulse Resp Resp BP Pulse Ox 01/10/19 08:33 97.5 F L 79 16 154/94 84 01/10/19 07:21 76 01/10/19 05:19 62 17 96 01/10/19 04:24 20 01/10/19 04:15 98.0 F 68 18 126/69 96 01/10/19 01:59 88 22 01/09/19 23:40 97.0 F L 97 H 18 144/90 82 L 01/09/19 23:00 75 20 98 01/09/19 20:23 96 01/09/19 20:10 90 20 01/09/19 20:00 89 20 01/09/19 19:52 88 01/09/19 19:31 98.0 F 88 18 130/72 94 01/09/19 17:20 98.4 F 86 20 137/78 91 01/09/19 17:19 85 142/74 93 01/09/19 13:10 86 20 01/09/19 12:59 89 20 01/09/19 12:57 97.5 F L 90 16 117/74 92 - Physical Examination General: Other (OBESE) HEENT: Positive: PERRL Neck: Positive: trachea midline Cardiac: Positive: Reg Rate and Rhythm Lungs: Positive: Decreased Breath Sounds Neuro: Positive: Grossly Intact Abdomen: Positive: Soft Extremities: Present: +1 Edema. Absent: edema - Imaging and Cardiology EKG: image reviewed (sinus rhythm at 87 bpm, atrial premature complexes, probable left atrial enlargement and anteroseptal infarct age undetermined)
[2019-01-10] MEDS ORDERED: NACL 0.9% 500 ML 500 ML IV SCH (11:00)
--- NOTE | 2019-01-10 14:14 | Progress Note ---
Assessment and Plan 53 y/o female with chronic respiratory failure, continued smoker, admitted with worsening dyspnea secondary to volume overload from CHF exacerbation. 1. Left and Right heart cath tomorrow. This is very important warranted being that the patient has been admitted to the hospital 5 times this year alone and it is only december. 2. Continue IV diuresis 3. Suggest strict I/O and volume restriction 4. Continue bronchodilators Thank you for this consult, will continue to follow along with you. Subjective Date of service: 01/10/19 Principal diagnosis: Shortness of breath Interval history: No acute events. Patient understands what is taking place tomorrow. Breathing is better. Daughter not at bedside. Objective Vital Signs - 12hr 01/10/19 01/10/19 01/10/19 04:15 04:24 05:19 Temperature 98.0 F Pulse Rate 68 62 Respiratory 18 20 17 Rate Blood Pressure 126/69 O2 Sat by Pulse 96 96 Oximetry 01/10/19 01/10/19 07:21 08:33 Temperature 97.5 F L Pulse Rate 76 79 Respiratory 16 Rate Blood Pressure 154/94 O2 Sat by Pulse 84 Oximetry Constitutional: no acute distress, alert, other (obese) Eyes: non-icteric ENT: oropharynx moist Neck: supple Effort: normal Ascultation: Bilateral: rales (at both bases) Percussion: Bilateral: not dull Tactile fremitus: Bilateral: normal Cardiovascular: regular rate and rhythm Gastrointestinal: normoactive bowel sounds, soft Neurologic: normal mental status, non-focal exam CBC and BMP: 01/08/19 05:15 01/09/19 04:53 ABG, PT/INR, D-dimer: ABG POC ABG pH 7.366 (7.35-7.45) 01/07/19 17:55 POC ABG pCO2 59.1 (35-45) H 01/07/19 17:55 POC ABG pO2 63 (80-105) L 01/07/19 17:55 POC ABG HCO3 33.8 (22-26 mml/L) 01/07/19 17:55 POC ABG Total CO2 36 (23-27mmol/L) 01/07/19 17:55 POC ABG O2 Sat 90 01/07/19 17:55 Abnormal lab findings: Abnormal Labs 01/07/19 01/07/19 01/07/19 17:19 17:19 17:19 RDW 16.0 H Seg Neutrophils % 72.8 H Seg Neuts % (Manual) Lymphocytes % (Manual) Lymphocytes # (Manual) POC ABG pCO2 POC ABG pO2 Chloride 96.9 L Carbon Dioxide 32 H BUN Glucose 290 H POC Glucose Hemoglobin A1c 11.0 H Magnesium 2.50 H Albumin 2.9 L 01/07/19 01/07/19 01/08/19 17:55 21:18 05:15 RDW 15.7 H Seg Neutrophils % Seg Neuts % (Manual) 92.0 H Lymphocytes % (Manual) 7.0 L Lymphocytes # (Manual) 0.5 L POC ABG pCO2 59.1 H POC ABG pO2 63 L Chloride Carbon Dioxide BUN Glucose POC Glucose 269 H Hemoglobin A1c Magnesium Albumin 01/08/19 01/08/19 01/08/19 05:15 12:20 17:42 RDW Seg Neutrophils % Seg Neuts % (Manual) Lymphocytes % (Manual) Lymphocytes # (Manual) POC ABG pCO2 POC ABG pO2 Chloride 96.5 L Carbon Dioxide 33 H BUN 20 H Glucose 391 H POC Glucose 392 H 423 H Hemoglobin A1c Magnesium Albumin 01/08/19 01/09/19 01/09/19 21:11 04:53 07:22 RDW Seg Neutrophils % Seg Neuts % (Manual) Lymphocytes % (Manual) Lymphocytes # (Manual) POC ABG pCO2 POC ABG pO2 Chloride Carbon Dioxide 31 H BUN 25 H Glucose 265 H POC Glucose 421 H 243 H Hemoglobin A1c Magnesium Albumin 01/09/19 01/09/19 01/09/19 11:47 17:22 21:24 RDW Seg Neutrophils % Seg Neuts % (Manual) Lymphocytes % (Manual) Lymphocytes # (Manual) POC ABG pCO2 POC ABG pO2 Chloride Carbon Dioxide BUN Glucose POC Glucose 282 H 319 H 374 H Hemoglobin A1c Magnesium Albumin 01/10/19 01/10/19 08:39 11:57 RDW Seg Neutrophils % Seg Neuts % (Manual) Lymphocytes % (Manual) Lymphocytes # (Manual) POC ABG pCO2 POC ABG pO2 Chloride Carbon Dioxide BUN Glucose POC Glucose 276 H 341 H Hemoglobin A1c Magnesium Albumin
[2019-01-10] MEDS: PRAVACHOL PO SCH (21:31)
[2019-01-10] MEDS: LOVENOX SUB-Q SCH (21:32)
[2019-01-10] MEDS ORDERED: NACL 0.9% 250ML 250 ML ONE (21:43)
[2019-01-10] MEDS: LEVAQUIN 500MG/100ML 500 MG/100 ML BAG IV SCH (21:55)
[2019-01-10] MEDS: LANTUS SUB-Q SCH (21:56)
--- NOTE | 2019-01-11 01:14 | Progress Note ---
Assessment and Plan Assessment and plan: Acute on chronic respiratory failure Admitted to Telemetry supplemental Oxygen Pulm consulted, following. Her Pulmonology is COPD exacerbation solumedrol iv duoneb Lung mass was being evaluated as outpatient by Dr. Jackson Acute on chronic diastolic CHF [facility] Cardiology following Positive blood cultures 1 in 4 Will repeat blood cultures, likely contaminant No fever, no leukocytosis Diabetes mellitus type 2. Accucheck q ac hs Full code status History Interval history: less Shortness of breath History of lung mass called by Nurse with positive blood culture Hospitalist Physical - Physical exam Narrative exam: Gen: Not in acute distress, lying in bed HEENT: Normocephalic, atraumatic Neck: supple, no JVD Heart: S1 and S2 reg, no murmurs, rubs or gallop Lungs: Decreased breath sounds bilat, bilat basal crackles, rhonchi Abd: soft, non tender, non distended, normal BS Ext: No edema, no clubbing, no cyanosis, Neuro: Awake,alert, oriented x 3 - Constitutional Vitals: Temp Pulse Resp BP Pulse Ox 98.0 F 83 19 133/75 97 01/11/19 00:10 01/11/19 00:12 01/11/19 00:12 01/11/19 00:10 01/11/19 00:12 General appearance: Present: no acute distress Results - Labs CBC & Chem 7: 01/08/19 05:15 01/11/19 05:34 Labs: Laboratory Last Values WBC 7.2 K/mm3 (4.5-11.0) 01/08/19 05:15 RBC 3.83 M/mm3 (3.65-5.03) 01/08/19 05:15 Hgb 11.5 gm/dl (10.1-14.3) 01/08/19 05:15 Hct 35.4 % (30.3-42.9) 01/08/19 05:15 MCV 93 fl (79-97) 01/08/19 05:15 MCH 30 pg (28-32) 01/08/19 05:15 MCHC 32 % (30-34) 01/08/19 05:15 RDW 15.7 % (13.2-15.2) H 01/08/19 05:15 Plt Count 223 K/mm3 (140-440) 01/08/19 05:15 Lymph % (Auto) 18.0 % (13.4-35.0) 01/07/19 17:19 [place] % (Auto) 6.8 % (0.0-7.3) 01/07/19 17:19 Eos % (Auto) 1.3 % (0.0-4.3) 01/07/19 17:19 Baso % (Auto) 1.1 % (0.0-1.8) 01/07/19 17:19 Lymph # 1.3 K/mm3 (1.2-5.4) 01/07/19 17:19 [place] # 0.5 K/mm3 (0.0-0.8) 01/07/19 17:19 Eos # 0.1 K/mm3 (0.0-0.4) 01/07/19 17:19 Baso # 0.1 K/mm3 (0.0-0.1) 01/07/19 17:19 Add Manual Diff Complete 01/08/19 05:15 Total Counted 100 01/08/19 05:15 Seg Neutrophils % 72.8 % (40.0-70.0) H 01/07/19 17:19 Seg Neuts % (Manual) 92.0 % (40.0-70.0) H 01/08/19 05:15 1.0 % 01/08/19 05:15 7.0 % (13.4-35.0) L 01/08/19 05:15 Reactive Lymphs % (Man) 0 % 01/08/19 05:15 0 % (0.0-7.3) 01/08/19 05:15 0 % (0.0-4.3) 01/08/19 05:15 0 % (0.0-1.8) 01/08/19 05:15 0 % 01/08/19 05:15 0 % 01/08/19 05:15 0 % 01/08/19 05:15 0 % 01/08/19 05:15 Nucleated RBC % Not Reportable 01/08/19 05:15 Seg Neutrophils # 5.4 K/mm3 (1.8-7.7) 01/07/19 17:19 Seg Neutrophils # Man 6.6 K/mm3 (1.8-7.7) 01/08/19 05:15 Band Neutrophils # 0.1 K/mm3 01/08/19 05:15 0.5 K/mm3 (1.2-5.4) L 01/08/19 05:15 Abs React Lymphs (Man) 0.0 K/mm3 01/08/19 05:15 0.0 K/mm3 (0.0-0.8) 01/08/19 05:15 0.0 K/mm3 (0.0-0.4) 01/08/19 05:15 0.0 K/mm3 (0.0-0.1) 01/08/19 05:15 0.0 K/mm3 01/08/19 05:15 0.0 K/mm3 01/08/19 05:15 0.0 K/mm3 01/08/19 05:15 Blast Cells # 0.0 K/mm3 01/08/19 05:15 WBC Morphology Not Reportable 01/08/19 05:15 Hypersegmented Neuts Not Reportable 01/08/19 05:15 Hyposegmented Neuts Not Reportable 01/08/19 05:15 Hypogranular Neuts Not Reportable 01/08/19 05:15 Not Reportable 01/08/19 05:15 Not Reportable 01/08/19 05:15 Not Reportable 01/08/19 05:15 Not Reportable 01/08/19 05:15 Not Reportable 01/08/19 05:15 Not Reportable 01/08/19 05:15 Consistent w auto 01/08/19 05:15 Not Reportable 01/08/19 05:15 Plt Clumps, EDTA Not Reportable 01/08/19 05:15 Not Reportable 01/08/19 05:15 Not Reportable 01/08/19 05:15 Not Reportable 01/08/19 05:15 Plt Morphology Comment Not Reportable 01/08/19 05:15 RBC Morphology Normal 01/08/19 05:15 Dimorphic RBCs Not Reportable 01/08/19 05:15 Not Reportable 01/08/19 05:15 Not Reportable 01/08/19 05:15 Not Reportable 01/08/19 05:15 Not Reportable 01/08/19 05:15 Not Reportable 01/08/19 05:15 Not Reportable 01/08/19 05:15 Not Reportable 01/08/19 05:15 Not Reportable 01/08/19 05:15 Not Reportable 01/08/19 05:15 Not Reportable 01/08/19 05:15 Not Reportable 01/08/19 05:15 Not Reportable 01/08/19 05:15 Not Reportable 01/08/19 05:15 Not Reportable 01/08/19 05:15 Not Reportable 01/08/19 05:15 Not Reportable 01/08/19 05:15 Not Reportable 01/08/19 05:15 Not Reportable 01/08/19 05:15 Not Reportable 01/08/19 05:15 Acanthocytes (Spur) Not Reportable 01/08/19 05:15 Rouleaux Not Reportable 01/08/19 05:15 Not Reportable 01/08/19 05:15 Not Reportable 01/08/19 05:15 Not Reportable 01/08/19 05:15 Not Reportable 01/08/19 05:15 Hem Pathologist Commnt No 01/08/19 05:15 POC ABG pH 7.366 (7.35-7.45) 01/07/19 17:55 POC ABG pCO2 59.1 (35-45) H 01/07/19 17:55 POC ABG pO2 63 (80-105) L 01/07/19 17:55 POC ABG HCO3 33.8 (22-26 mml/L) 01/07/19 17:55 POC ABG Total CO2 36 (23-27mmol/L) 01/07/19 17:55 POC ABG O2 Sat 90 01/07/19 17:55 POC ABG Base Excess 8 ((-2) - (+3)mmol/L) 01/07/19 17:55 50 % 01/07/19 17:55 Sodium 138 mmol/L (137-145) 01/09/19 04:53 Potassium 4.6 mmol/L (3.6-5.0) 01/09/19 04:53 Chloride 98.6 mmol/L (98-107) 01/09/19 04:53 Carbon Dioxide 31 mmol/L (22-30) H 01/09/19 04:53 13 mmol/L 01/09/19 04:53 BUN 25 mg/dL (7-17) H 01/09/19 04:53 0.9 mg/dL (0.7-1.2) 01/09/19 04:53 Estimated GFR > 60 ml/min 01/09/19 04:53 28 % 01/09/19 04:53 Glucose 265 mg/dL (65-100) H 01/09/19 04:53 POC Glucose 328 (70-105) H 01/10/19 21:45 11.0 % (4-6) H 01/07/19 17:19 Calcium 8.9 mg/dL (8.4-10.2) 01/09/19 04:53 Magnesium 2.50 mg/dL (1.7-2.3) H 01/07/19 17:19 0.80 mg/dL (0.1-1.2) 01/07/19 17:19 AST 17 units/L (5-40) 01/07/19 17:19 ALT 13 units/L (7-56) 01/07/19 17:19 119 units/L (35-129) 01/07/19 17:19 < 0.010 ng/mL (0.00-0.029) 01/07/19 17:19 7.0 g/dL (6.3-8.2) 01/07/19 17:19 2.9 g/dL (3.9-5) L 01/07/19 17:19 0.7 % 01/07/19 17:19 Active Medications - Current Medications Current Medications: Generic Name Dose Route Start Last Admin Trade Name Freq PRN Reason Stop Dose Admin Acetaminophen 650 mg 01/07/19 19:33 01/08/19 22:31 Tylenol PO 650 mg Q4H PRN Administration Pain MILD(1-3)/Fever >100.5/WANG Albuterol 2.5 mg 01/07/19 19:33 01/10/19 17:02 Proventil IH 2.5 mg Q4HRT PRN Administration Shortness Of Breath Albuterol/Ipratropium 1 ampul 01/07/19 20:00 01/10/19 21:26 Duoneb *Not For Prn Use* IH 1 ampul Q6HRT [place] Administration Allopurinol 300 mg 01/08/19 10:00 01/10/19 09:55 Zyloprim PO 300 mg DAILY [place] Administration Amlodipine Besylate 10 mg 01/08/19 10:00 01/10/19 09:55 Norvasc PO 10 mg DAILY [place] Administration Aspirin 81 mg 01/08/19 10:00 01/10/19 09:55 Baby Aspirin PO 81 mg QDAY [place] Administration Budesonide 0.5 mg 01/07/19 20:00 01/10/19 21:26 Pulmicort IH 0.5 mg Q12HRT [place] Administration Carvedilol 6.25 mg 01/07/19 22:00 01/10/19 21:31 Coreg PO 6.25 mg BID [place] Administration Dextrose 50 ml 01/07/19 19:35 D50w (25gm) Syringe IV PRN PRN Hypoglycemia Docusate Sodium 100 mg 01/07/19 22:00 01/10/19 21:31 Colace PO 100 mg BID [place] Administration Enoxaparin Sodium 40 mg 01/07/19 22:00 01/10/19 21:32 Lovenox SUB-Q 40 mg QDAY@2200 [place] Administration Furosemide 40 mg 01/08/19 06:00 01/10/19 06:23 Lasix IV 40 mg DAILY@0600 [place] Administration Hydralazine HCl 10 mg 01/07/19 19:38 Apresoline IV Q4HR PRN Blood Pressure Levofloxacin/Dextrose 500 mg in 100 mls @ 100 mls/hr 01/07/19 21:00 01/10/19 21:55 Levaquin 500mg/100ml IV 100 mls/hr Q24H [place] Administration Protocol Vancomycin HCl 1,500 mg/ 530 mls @ 333.333 mls/hr 01/10/19 00:00 01/10/19 23:30 Sodium Chloride IV 333.333 mls/hr Q12H [place] Administration Insulin Glargine 35 units 01/08/19 18:24 01/10/19 21:56 Lantus SUB-Q 35 units QHS [place] Administration Insulin Human Lispro 0 unit 01/07/19 22:00 01/10/19 21:57 Humalog SUB-Q 6 unit ACHS [place] Administration Protocol Isosorbide Dinitrate/Hydralazine 1 each 01/07/19 22:00 01/10/19 21:31 Bidil 20/37.5mg PO 1 each BID [place] Administration Metformin HCl 500 mg 01/07/19 22:00 01/10/19 21:32 Glucophage PO Not Given BID [place] Methylprednisolone Sodium Succinate 60 mg 01/07/19 22:00 01/10/19 21:29 Solu-Medrol IV 60 mg Q8HR [place] Administration Ondansetron HCl 4 mg 01/07/19 19:33 Zofran IV Q8H PRN Nausea And Vomiting Pantoprazole Sodium 40 mg 01/08/19 10:00 01/10/19 09:55 Protonix PO 40 mg QDAY [place] Administration Potassium Chloride 40 meq 01/08/19 10:00 01/10/19 09:56 K-Dur PO 40 meq DAILY [place] Administration Pravastatin Sodium 80 mg 01/07/19 22:00 01/10/19 21:31 Pravachol PO 80 mg QHS [place] Administration Sodium Chloride 10 ml 01/07/19 22:00 01/10/19 21:33 Sodium Chloride Flush Syringe 10 Ml IV 10 ml BID [place] Administration Sodium Chloride 10 ml 01/07/19 19:33 Sodium Chloride Flush Syringe 10 Ml IV PRN PRN LINE FLUSH Nutrition/Malnutrition Assess - Dietary Evaluation Nutrition/Malnutrition Findings: Nutrition Notes Start: 01/08/19 16:31 Freq: Status: Active Protocol: Document 01/08/19 16:31 RM (Rec: 01/08/19 16:34 RM [id number]) Nutrition Notes Need for Assessment generated from: MD Order,Education Initial or Follow up Assessment Current Diagnosis COPD,Diabetes,Hypertension, Heart Failure,Hyperlipidemia Labs/Tests A1c 11 Subjective/Other Information Consulted for DM diet education. Pt stated that she had been previously educated but was not taught carbohydrate counting. Reviewed DM diet education. Gave handout. #1 Nutrition Diagnosis Food and nutrition-related knowledge deficit Etiology inadequate prior education As Evidenced by Signs and Symptoms pt desire for education Nutrition Intervention Teaching Recipient Patient Learning Readiness Good Teaching Methods Discussion,Handout Response to Teaching Verbalize understanding Education Handouts Provided Carbohydrate Counting for People with Diabetes Barriers to Learning No Barriers RD phone number provided Yes Patient aware of follow up options Yes Goal #1 Utilize carbohydrate counting Revisit per MD consult or patient Sign Off request:
[2019-01-11] MEDS: DUONEB *Not for PRN Use IH SCH ×4 (01:35→21:26)
[2019-01-11 06:45] LABS: BUN/Creatinine Ratio 30; Blood Urea Nitrogen 27 mg/dL (7-17); Calcium 8.5 mg/dL (8.4-10.2); Hemolysis Index 0
[2019-01-11] MEDS: LASIX IV SCH (06:45)
[2019-01-11] MEDS: SOLU-Medrol IV SCH ×3 (06:45→21:39)
[2019-01-11] MEDS: PULMICORT IH SCH ×2 (07:50→21:25)
[2019-01-11 08:52] LABS: INR 0.97 (0.87-1.13)
[2019-01-11] MEDS: HumaLOG SUB-Q SCH ×4 (09:34→21:54)
[2019-01-11] MEDS: NORVASC PO SCH (11:06)
[2019-01-11] MEDS: COLACE PO SCH ×2 (11:06→21:40)
[2019-01-11] MEDS: BIDIL 20/37.5MG PO SCH ×2 (11:07→21:39)
[2019-01-11] MEDS: ZYLOPRIM PO SCH (11:07)
[2019-01-11] MEDS: COREG PO SCH ×2 (11:07→21:40)
[2019-01-11] MEDS: PROTONIX PO SCH (11:07)
[2019-01-11] MEDS: BABY ASPIRIN PO SCH (11:07)
[2019-01-11] MEDS: SODIUM CHLORIDE FLUSH SYRINGE 10 ML IV SCH ×2 (11:08→21:53)
[2019-01-11] MEDS: GLUCOPHAGE PO SCH ×2 (11:08→21:55)
[2019-01-11] MEDS: K-DUR PO SCH (11:15)
--- NOTE | 2019-01-11 12:15 | Progress Note ---
Assessment and Plan Shortness of breath - reason for admission Patient admits non-compliance with fluid restriction Patient discharged from [facility] last month with plan to undergo ischemic evaluation with L/RHC as outpatient Chronic combined systolic and diastolic heart failure Severe COPD on home oxygen therapy 4 L NC Cor Pulmonale and Pulmonary hypertension Mitral stenosis moderate by echo 08/2018 Type II DM, uncontrolled Echo done at [facility] 08/2018: EF 40 - 45%. Elevated LVEDP. Elevated LAP. Systolic and diastolic septal flattening c/w RV volume and pressure overload. RV mildly to moderately dilated. RV systolic function is mildly to moderately reduced. Moderate Bi-atrial dilation Moderate Pul HTN Recommendations: Continue IV diuresis and afterload reduction LHC and RHC is warranted to evaluate coronary anatomy and filling pressures. We will tentatively plan this for tomorrow pending ID evaluation and recomme ndations. Subjective Date of service: 01/11/19 Principal diagnosis: Shortness of breath Interval history: Left and right heart cath post postponed due to positive blood cultures, 1 of 2 bottles. Awaits ID evaluation. Objective Vital Signs Temp Pulse Pulse Pulse Resp Resp BP 01/11/19 11:07 77 148/89 01/11/19 11:06 98.3 F 76 18 148/89 01/11/19 10:00 81 01/11/19 09:05 98.0 F 74 18 140/87 01/11/19 08:00 67 20 01/11/19 07:50 65 20 01/11/19 07:00 81 01/11/19 04:30 98.0 F 69 18 147/85 01/11/19 01:55 78 19 01/11/19 01:38 79 19 01/11/19 01:37 69 17 01/11/19 00:12 83 19 01/11/19 00:10 98.0 F 82 20 133/75 01/10/19 22:00 76 01/10/19 21:35 66 20 01/10/19 21:27 01/10/19 21:26 63 18 01/10/19 19:23 98.0 F 97 H 18 130/73 01/10/19 19:21 89 01/10/19 17:02 95 H 20 01/10/19 16:42 98.6 F 96 H 16 118/71 01/10/19 14:32 97 H 20 01/10/19 14:22 94 H 20 01/10/19 13:17 98.6 F 95 H 18 122/76 Pulse Ox 01/11/19 11:07 01/11/19 11:06 99 01/11/19 10:00 01/11/19 09:05 90 01/11/19 08:00 01/11/19 07:50 92 01/11/19 07:00 01/11/19 04:30 97 01/11/19 01:55 01/11/19 01:38 97 01/11/19 01:37 01/11/19 00:12 97 01/11/19 00:10 95 01/10/19 22:00 01/10/19 21:35 01/10/19 21:27 92 01/10/19 21:26 01/10/19 19:23 90 01/10/19 19:21 01/10/19 17:02 01/10/19 16:42 86 01/10/19 14:32 01/10/19 14:22 01/10/19 13:17 90 - Physical Examination General: No Apparent Distress HEENT: Positive: PERRL Neck: Positive: trachea midline Cardiac: Positive: Reg Rate and Rhythm Lungs: Positive: Decreased Breath Sounds Neuro: Positive: Grossly Intact Extremities: Present: +1 Edema - Labs and Meds Coagulation 01/11/19 Range/Units 08:05 PT 13.5 (12.2-14.9) Sec. INR 0.97 (0.87-1.13) Comprehensive Metabolic Panel 01/11/19 Range/Units 05:34 Sodium 137 (137-145) mmol/L Potassium 5.0 (3.6-5.0) mmol/L Chloride 97.7 L (98-107) mmol/L Carbon Dioxide 30 (22-30) mmol/L BUN 27 H (7-17) mg/dL Creatinine 0.9 (0.7-1.2) mg/dL Glucose 390 H (65-100) mg/dL Calcium 8.5 (8.4-10.2) mg/dL
--- NOTE | 2019-01-11 13:14 | Progress Note ---
Assessment and Plan Imp: 1. Acute/chronic systolic CHF 2. Pulm HTN, suspect due to L-sided heart disease, ETHAN/OHS, and COPD 3. Acute/chronic respiratory failure, hypoxia 4. Chronic hypercapneic respiratory failure 5. Obesity with ETHAN/OHS 6. Chronic nicotine dependence, cigs 7. LLL Pulm nodule Rec: 1. Cont. Diuresis, BP optimization 2. Weight loss, CPAP QHS, sodium restriction, and smoking cessation needed as outpatient 3. LLL nodule has been present for years and was hypometabolic on 06/2018; she did have some enlarged mediastinal/axillary/supraclavicular nodes on PET which she is aware of, but she has not followed up re: these as recommended (supposed to f/u with heme/onc and Dr. Priest); recommend a f/u PET +/- biopsy as outpatient 4. Okay for RHC/LHC pulm-angela 5. 1 of 4 GPC in clusters likely contaminant 6. Prognosis is guarded due to poor compliance and f/u, plus ongoing smoking Plan of care reviewed w/ patient, she understands/agrees Subjective Date of service: 01/11/19 Principal diagnosis: Shortness of breath Interval history: No events. On 3L NC. SOB better w/ diuresis. No chest pain currently. No new complaints. Active Medications Acetaminophen (Tylenol) 650 mg PO Q4H PRN PRN Reason: Pain MILD(1-3)/Fever >100.5/WANG Last Admin: 01/08/19 22:31 Dose: 650 mg Documented by: Albuterol (Proventil) 2.5 mg IH Q4HRT PRN PRN Reason: Shortness Of Breath Last Admin: 01/10/19 17:02 Dose: 2.5 mg Documented by: Albuterol/Ipratropium (Duoneb *Not For Prn Use*) [address] [facility] Last Admin: 01/11/19 07:50 Dose: 1 ampul Documented by: Allopurinol (Zyloprim) [address] [facility] Last Admin: 01/11/19 11:07 Dose: 300 mg Documented by: Amlodipine Besylate (Norvasc) [address] [facility] Last Admin: 01/11/19 11:06 Dose: 10 mg Documented by: Aspirin (Baby Aspirin) [address] [facility] Last Admin: 01/11/19 11:07 Dose: 81 mg Documented by: Budesonide (Pulmicort) 0.[address] [facility] Last Admin: 01/11/19 07:50 Dose: 0.5 mg Documented by: Carvedilol (Coreg) 6.[address] [facility] Last Admin: 01/11/19 11:07 Dose: 6.25 mg Documented by: Dextrose (D50w (25gm) Syringe) 50 ml IV PRN PRN PRN Reason: Hypoglycemia Docusate Sodium (Colace) [address] [facility] Last Admin: 01/11/19 11:06 Dose: 100 mg Documented by: Enoxaparin Sodium (Lovenox) 40 mg SUB-Q QDAY@2200 [facility] Last Admin: 01/10/19 21:32 Dose: 40 mg Documented by: Furosemide (Lasix) 40 mg IV DAILY@0600 [facility] Last Admin: 01/11/19 06:45 Dose: 40 mg Documented by: Hydralazine HCl (Apresoline) 10 mg IV Q4HR PRN PRN Reason: Blood Pressure Levofloxacin/Dextrose (Levaquin 500mg/100ml) 500 mg in 100 mls @ 100 mls/hr IV Q24H [facility]; Protocol Last Admin: 01/10/19 21:55 Dose: 100 mls/hr Documented by: Vancomycin HCl 1,500 mg/ (Sodium Chloride) 530 mls @ 333.333 mls/hr IV Q12H [facility] Last Admin: 01/10/19 23:30 Dose: 333.333 mls/hr Documented by: Insulin Glargine (Lantus) 35 units SUB-Q QHS [facility] Last Admin: 01/10/19 21:56 Dose: 35 units Documented by: Insulin Human Lispro (Humalog) 0 unit SUB-Q ACHS [facility]; Protocol Last Admin: 01/11/19 09:34 Dose: 6 unit Documented by: Isosorbide Dinitrate/Hydralazine (Bidil 20/37.5mg) [address] [facility] Last Admin: 01/11/19 11:07 Dose: 1 each Documented by: Metformin HCl (Glucophage) [address] [facility] Last Admin: 01/11/19 11:08 Dose: Not Given Documented by: Methylprednisolone Sodium Succinate (Solu-Medrol) [address] [facility] Last Admin: 01/11/19 06:45 Dose: 60 mg Documented by: Ondansetron HCl (Zofran) 4 mg IV Q8H PRN PRN Reason: Nausea And Vomiting Pantoprazole Sodium (Protonix) [address] [facility] Last Admin: 01/11/19 11:07 Dose: 40 mg Documented by: Pravastatin Sodium (Pravachol) [address] [facility] Last Admin: 01/10/19 21:31 Dose: 80 mg Documented by: Sodium Chloride (Sodium Chloride Flush Syringe 10 Ml) [address] [facility] Last Admin: 01/11/19 11:08 Dose: 10 ml Documented by: Sodium Chloride (Sodium Chloride Flush Syringe 10 Ml) 10 ml IV PRN PRN PRN Reason: LINE FLUSH Objective Vital Signs - 12hr 01/11/19 01/11/19 01/11/19 01:37 01:38 01:55 Temperature Pulse Rate 79 Pulse Rate [ 69 78 Anterior Bilateral] Pulse Rate [ Apical] Respiratory 19 Rate Respiratory 17 19 Rate [Anterior Bilateral] Blood Pressure O2 Sat by Pulse 97 Oximetry 01/11/19 01/11/19 01/11/19 04:30 07:00 07:50 Temperature 98.0 F Pulse Rate 69 81 Pulse Rate [ 65 Anterior Bilateral] Pulse Rate [ Apical] Respiratory 18 Rate Respiratory 20 Rate [Anterior Bilateral] Blood Pressure 147/85 O2 Sat by Pulse 97 92 Oximetry 01/11/19 01/11/19 01/11/19 08:00 09:05 10:00 Temperature 98.0 F Pulse Rate 74 Pulse Rate [ 67 Anterior Bilateral] Pulse Rate [ 81 Apical] Respiratory 18 Rate Respiratory 20 Rate [Anterior Bilateral] Blood Pressure 140/87 O2 Sat by Pulse 90 Oximetry 01/11/19 01/11/19 11:06 11:07 Temperature 98.3 F Pulse Rate 76 77 Pulse Rate [ Anterior Bilateral] Pulse Rate [ Apical] Respiratory 18 Rate Respiratory Rate [Anterior Bilateral] Blood Pressure 148/89 148/89 O2 Sat by Pulse 99 Oximetry Constitutional: no acute distress, alert, other (obese) Eyes: non-icteric ENT: oropharynx moist Neck: supple Effort: normal Ascultation: Bilateral: diminished breath sounds Cardiovascular: regular rate and rhythm (no mrg) Gastrointestinal: normoactive bowel sounds, soft, non-tender, non-distended Integumentary: normal Extremities: no cyanosis, pink and warm, edema (1+ bilateral LE edema) Neurologic: normal mental status, non-focal exam, pupils equal and round, CN II- XII normal Psychiatric: mood appropriate, affect normal CBC and BMP: 01/08/19 05:15 01/11/19 05:34 ABG, PT/INR, D-dimer: ABG POC ABG pH 7.366 (7.35-7.45) 01/07/19 17:55 POC ABG pCO2 59.1 (35-45) H 01/07/19 17:55 POC ABG pO2 63 (80-105) L 01/07/19 17:55 POC ABG HCO3 33.8 (22-26 mml/L) 01/07/19 17:55 POC ABG Total CO2 36 (23-27mmol/L) 01/07/19 17:55 POC ABG O2 Sat 90 01/07/19 17:55 PT/INR, D-dimer PT 13.5 Sec. (12.2-14.9) 01/11/19 08:05 INR 0.97 (0.87-1.13) 01/11/19 08:05 Abnormal lab findings: Abnormal Labs 01/07/19 01/07/19 01/07/19 17:19 17:19 17:19 RDW 16.0 H Seg Neutrophils % 72.8 H Seg Neuts % (Manual) Lymphocytes % (Manual) Lymphocytes # (Manual) POC ABG pCO2 POC ABG pO2 Chloride 96.9 L Carbon Dioxide 32 H BUN Glucose 290 H POC Glucose Hemoglobin A1c 11.0 H Magnesium 2.50 H Albumin 2.9 L Vancomycin Trough 01/07/19 01/07/19 01/08/19 17:55 21:18 05:15 RDW 15.7 H Seg Neutrophils % Seg Neuts % (Manual) 92.0 H Lymphocytes % (Manual) 7.0 L Lymphocytes # (Manual) 0.5 L POC ABG pCO2 59.1 H POC ABG pO2 63 L Chloride Carbon Dioxide BUN Glucose POC Glucose 269 H Hemoglobin A1c Magnesium Albumin Vancomycin Trough 01/08/19 01/08/19 01/08/19 05:15 12:20 17:42 RDW Seg Neutrophils % Seg Neuts % (Manual) Lymphocytes % (Manual) Lymphocytes # (Manual) POC ABG pCO2 POC ABG pO2 Chloride 96.5 L Carbon Dioxide 33 H BUN 20 H Glucose 391 H POC Glucose 392 H 423 H Hemoglobin A1c Magnesium Albumin Vancomycin Trough 01/08/19 01/09/19 01/09/19 21:11 04:53 07:22 RDW Seg Neutrophils % Seg Neuts % (Manual) Lymphocytes % (Manual) Lymphocytes # (Manual) POC ABG pCO2 POC ABG pO2 Chloride Carbon Dioxide 31 H BUN 25 H Glucose 265 H POC Glucose 421 H 243 H Hemoglobin A1c Magnesium Albumin Vancomycin Trough 01/09/19 01/09/19 01/09/19 11:47 17:22 21:24 RDW Seg Neutrophils % Seg Neuts % (Manual) Lymphocytes % (Manual) Lymphocytes # (Manual) POC ABG pCO2 POC ABG pO2 Chloride Carbon Dioxide BUN Glucose POC Glucose 282 H 319 H 374 H Hemoglobin A1c Magnesium Albumin Vancomycin Trough 01/10/19 01/10/19 01/10/19 08:39 11:57 17:02 RDW Seg Neutrophils % Seg Neuts % (Manual) Lymphocytes % (Manual) Lymphocytes # (Manual) POC ABG pCO2 POC ABG pO2 Chloride Carbon Dioxide BUN Glucose POC Glucose 276 H 341 H 290 H Hemoglobin A1c Magnesium Albumin Vancomycin Trough 01/10/19 01/11/19 01/11/19 21:45 05:34 08:06 RDW Seg Neutrophils % Seg Neuts % (Manual) Lymphocytes % (Manual) Lymphocytes # (Manual) POC ABG pCO2 POC ABG pO2 Chloride 97.7 L Carbon Dioxide BUN 27 H Glucose 390 H POC Glucose 328 H 337 H Hemoglobin A1c Magnesium Albumin Vancomycin Trough 01/11/19 01/11/19 11:09 12:18 RDW Seg Neutrophils % Seg Neuts % (Manual) Lymphocytes % (Manual) Lymphocytes # (Manual) POC ABG pCO2 POC ABG pO2 Chloride Carbon Dioxide BUN Glucose POC Glucose 320 H Hemoglobin A1c Magnesium Albumin Vancomycin Trough 20.2 H Chest x-ray: report reviewed, image reviewed CT scan - chest: report reviewed, image reviewed
[2019-01-11] MEDS: VANCOMYCIN 1,250 MG in NACL 0.9% 250ML 250 ML IV SCH (15:28)
--- NOTE | 2019-01-11 15:43 | Consultation ---
History of Present Illness - Reason for Consult Consult date: 01/11/19 bacteremia Requesting physician: IRINA PRUITT - History of Present Illness 53 y/o female with history of obesity, chronic nicotine dependence, hypertension, diabetes, hyperlipidemia, COPD on home oxygen, CHF, left lower lobe calcified nodule, Pulm HTN, ETHAN/OHS, Acute/chronic respiratory failure, hypoxia, Chronic hypercapneic respiratory failure, recently admitted on 01/07/2019 due to worsening shortness of breath. Patient had a similar admission in October 2018 found to have pneumonia and a LLL nodule. LLL nodule has been present for years and was hypometabolic on 06/2018 per pulmonary; she did have some enlarged mediastinal/axillary/supraclavicular nodes on PET which she is aware of, but she has not followed up re: these as recommended (supposed to f/u with heme/onc and Dr. Priest); recommend a f/u PET +/- biopsy as outpatient. Discharged from [facility] last month with plan to undergo ischemic evaluation with L/RHC as outpatient. Denies fever, chills, N/V/D, productive cough. In the ED, temp 98.5, HR 93, O2 sat 77%, WBC 7.3. Glucose 390. Found to have mitral stenosis, and recurrent congestive heart failure. She is planned for a right and left heart catheterization for further assessment of mitral valve pathology, which may ultimately indicate surgical intervention.This morning, when informed about a positive blood culture reading. The patient has no fever, and white count is normal. Review of Systems: General: no fever, chills, nightsweats, unintentional weight change, or change in appetite Cutaneous: no rash, pruritus Head: no headaches or injury Eyes: no changes in vision, eye pain, double vision Ears: no ear pain, ear discharge, ringing or hearing loss Nose: no nose bleeding, stuffiness Mouth & throat: no bleeding gums, no horseness, no dental problems, or swollen glands Neck: no pain, node enlargement/lumps, tyroid enlargement or tenderness Respiratory: +SOB +cough Cardiovascular:+ chest pain, leg edema, cyanosis, FRENCH, orthopnea Musculoskeletal: no decreased joint motion, bone or joint pain, joint swelling, muscle aches Gastrointestinal: no nausea, vomiting, hematemesis, diarrhea, constipation, melena, bright red blood in stools, fecal incontinence, jaundice Genitourinary/Reproductive: no frequent urination, dysuria, hematuria, incontinence Neurogical: no seizures, no headaches, no weakness, no paresthesias, no loss of speech or vision; no memory loss, no vertigo, no tremors, no numbness Psychiatric: stable mood; no excessive anxiety, sadness or moodiness Past History Past Medical History: COPD, diabetes, heart failure, hypertension, hyperlip idemia Past Surgical History: No surgical history Social history: other (recently quit smoking 2 months ago; previously smoked half a pack a day for over 20+ years) Medications and Allergies Allergies Allergy/AdvReac Type Severity Reaction Status Date / Time No Known Allergies Allergy Verified 08/01/13 21:57 Home Medications Medication Instructions Recorded Confirmed Last Taken Type ALBUTEROL Inhaler (OR & NICU) 1 puff IH Q4H PRN #1 inha 12/05/15 01/08/19 0 01/07/19 Rx [ProAir HFA Inhaler] Allopurinol [Zyloprim] 300 mg PO DAILY #30 tablet 12/05/15 01/08/19 01/07/19 Rx Aspirin [Aspirin BABY CHEW TAB] 81 mg PO QDAY #30 tab.chew 12/05/15 01/08/19 0 01/07/19 Rx Carvedilol [Coreg] 6.25 mg PO BID #60 tablet 12/05/15 01/08/19 01/07/19 Rx Furosemide [Lasix TAB] 40 mg PO QDAY #30 tablet 12/05/15 01/08/19 01/07/19 Rx Insulin Glargine [Lantus VIAL] 35 units SUB-Q QHS #10 units 12/05/15 01/08/19 01/06/19 Rx Ipratropium/Albuterol Sulfate 1 ampul IH TID #100 ampul.neb 12/05/15 01/08/19 01/07/19 Rx [DUONEB *Not for PRN Use*] Simvastatin [Zocor TAB] 40 mg PO QHS #30 tablet 12/05/15 01/08/19 01/06/19 Rx Albuterol *Only Ed* [Proventil 2.5 mg IH Q4HRT PRN #30 nebu 05/18/16 01/08/19 01/07/19 Rx 0.5% NEBS] Exenatide Microspheres [Bydureon 2 mg SQ QWEEK 11/01/18 01/08/19 Unknown History Bcise] Glimepiride [Amaryl] 4 mg PO DAILY 11/01/18 01/08/19 01/07/19 History Isosorb Dinit/Hydralazine [Bidil 1 tab PO BID 11/01/18 01/08/19 01/07/19 History 20/37.5MG] Pantoprazole [Protonix TAB] 40 mg PO QDAY 11/01/18 01/08/19 01/07/19 History amLODIPine [Norvasc] 10 mg PO DAILY 11/01/18 01/08/19 01/07/19 History metFORMIN [Glucophage] 500 mg PO BID 11/01/18 01/08/19 01/07/19 History Active Meds: Active Medications Acetaminophen (Tylenol) 650 mg PO Q4H PRN PRN Reason: Pain MILD(1-3)/Fever >100.5/WANG Last Admin: 01/08/19 22:31 Dose: 650 mg Documented by: Albuterol (Proventil) 2.5 mg IH Q4HRT PRN PRN Reason: Shortness Of Breath Last Admin: 01/10/19 17:02 Dose: 2.5 mg Documented by: Albuterol/Ipratropium (Duoneb *Not For Prn Use*) 1 ampul IH Q6HRT [facility] Last Admin: 01/11/19 14:05 Dose: 1 ampul Documented by: Allopurinol (Zyloprim) 300 mg PO DAILY [facility] Last Admin: 01/11/19 11:07 Dose: 300 mg Documented by: Amlodipine Besylate (Norvasc) 10 mg PO DAILY [facility] Last Admin: 01/11/19 11:06 Dose: 10 mg Documented by: Aspirin (Baby Aspirin) 81 mg PO QDAY [facility] Last Admin: 01/11/19 11:07 Dose: 81 mg Documented by: Budesonide (Pulmicort) 0.5 mg IH Q12HRT [facility] Last Admin: 01/11/19 07:50 Dose: 0.5 mg Documented by: Carvedilol (Coreg) 6.25 mg PO BID [facility] Last Admin: 01/11/19 11:07 Dose: 6.25 mg Documented by: Dextrose (D50w (25gm) Syringe) 50 ml IV PRN PRN PRN Reason: Hypoglycemia Docusate Sodium (Colace) 100 mg PO BID [facility] Last Admin: 01/11/19 11:06 Dose: 100 mg Documented by: Enoxaparin Sodium (Lovenox) 40 mg SUB-Q QDAY@2200 [facility] Last Admin: 01/10/19 21:32 Dose: 40 mg Documented by: Furosemide (Lasix) 40 mg IV DAILY@0600 [facility] Last Admin: 01/11/19 06:45 Dose: 40 mg Documented by: Hydralazine HCl (Apresoline) 10 mg IV Q4HR PRN PRN Reason: Blood Pressure Levofloxacin/Dextrose (Levaquin 500mg/100ml) 500 mg in 100 mls @ 100 mls/hr IV Q24H [facility]; Protocol Last Admin: 01/10/19 21:55 Dose: 100 mls/hr Documented by: Vancomycin HCl 1,250 mg/ (Sodium Chloride) 275 mls @ 166.667 mls/hr IV Q12H [facility] Last Admin: 01/11/19 15:28 Dose: 166.667 mls/hr Documented by: Insulin Glargine (Lantus) 35 units SUB-Q QHS [facility] Last Admin: 01/10/19 21:56 Dose: 35 units Documented by: Insulin Human Lispro (Humalog) 0 unit SUB-Q ACHS [facility]; Protocol Last Admin: 01/11/19 13:33 Dose: 6 unit Documented by: Isosorbide Dinitrate/Hydralazine (Bidil 20/37.5mg) 1 each PO BID [facility] Last Admin: 01/11/19 11:07 Dose: 1 each Documented by: Metformin HCl (Glucophage) 500 mg PO BID [facility] Last Admin: 01/11/19 11:08 Dose: Not Given Documented by: Methylprednisolone Sodium Succinate (Solu-Medrol) 60 mg IV Q8HR [facility] Last Admin: 01/11/19 13:38 Dose: 60 mg Documented by: Ondansetron HCl (Zofran) 4 mg IV Q8H PRN PRN Reason: Nausea And Vomiting Pantoprazole Sodium (Protonix) 40 mg PO QDAY [facility] Last Admin: 01/11/19 11:07 Dose: 40 mg Documented by: Pravastatin Sodium (Pravachol) 80 mg PO QHS [facility] Last Admin: 01/10/19 21:31 Dose: 80 mg Documented by: Sodium Chloride (Sodium Chloride Flush Syringe 10 Ml) 10 ml IV BID [facility] Last Admin: 01/11/19 11:08 Dose: 10 ml Documented by: Sodium Chloride (Sodium Chloride Flush Syringe 10 Ml) 10 ml IV PRN PRN PRN Reason: LINE FLUSH Physical Examination - Constitutional Vitals: Vital Signs Temp Pulse Resp BP Pulse Ox 98.3 F 93 H 20 148/89 99 01/11/19 11:06 01/11/19 14:15 01/11/19 14:15 01/11/19 11:07 01/11/19 11:06 Temperature -Last 24 Hours Temperature 98.3 F Temperature 98.0 F Temperature 98.0 F Temperature 98.0 F Temperature 98.0 F Temperature 98.6 F Results - Labs CBC & Chem 7: 01/08/19 05:15 01/11/19 05:34 Labs: Abnormal lab results 01/10/19 01/10/19 01/11/19 Range/Units 17:02 21:45 05:34 Chloride 97.7 L (98-107) mmol/L BUN 27 H (7-17) mg/dL Glucose 390 H (65-100) mg/dL POC Glucose 290 H 328 H (70-105) Vancomycin Trough (5.0-20.0) ug/mL 01/11/19 01/11/19 01/11/19 Range/Units 08:06 11:09 12:18 Chloride (98-107) mmol/L BUN (7-17) mg/dL Glucose (65-100) mg/dL POC Glucose 337 H 320 H (70-105) Vancomycin Trough 20.2 H (5.0-20.0) ug/mL Assessment and Plan Cultures: Blood culture 01/07/2019 GPC in clusters 1 of 4 bottles Blood culture 01/10/2019 no growth Assessment: 53 y/o female with history of obesity, chronic nicotine dependence, hypertension, diabetes, hyperlipidemia, COPD on home oxygen, CHF, left lower lobe calcified nodule, Pulm HTN, ETHAN/OHS, Acute/chronic respiratory failure, hypoxia, Chronic hypercapneic respiratory failure, recently admitted on 01/07/2019 due to worsening shortness of breath: 1) GPC bacteremia: Blood culture 01/07/2019 GPC in clusters 1 of 4 bottles, likely contaminant, patient w/o sepsis, no fever, no leukocytosis. No in travenous indwelling devices. 2) Acute on chronic respiratory failure: multifactorial-recurrent congestive heart failure, COPD, ETHAN, pulm HTN 3) LLL nodule: has been present for years and was hypometabolic on 06/2018 per pulmonary; she did have some enlarged mediastinal/axillary/supraclavicular nodes on PET which she is aware of, but she has not followed up re: these as recommended (supposed to f/u with heme/onc and Dr. Priest); recommend a f/u PET +/- biopsy as outpatient. Discharged from [facility] last month with plan to undergo ischemic evaluation with L/RHC as outpatient. Denies fever, chills, N/V/D, productive cough. 1) Sepsis: Present on admission, manifested by fever, tachycardia, hypotension, leukocytosis, bandemia, increased lactate. Etiology most likely. Recommendations: - follow-up blood cultures - if repeat blood culture negative for 48 hour and initial blood culture grows CHANNEL MAN then ok to do right and left heart catheterization for further assessment of mitral valve pathology - continue levaquin and vancomycin for now will stop soon Will follow. Sweta Bedolla MD Infectious Diseases [employer] [facility] M [phone] O [phone]
[2019-01-11] MEDS: PRAVACHOL PO SCH (21:39)
[2019-01-11] MEDS: LANTUS SUB-Q SCH (21:41)
[2019-01-11] MEDS: LEVAQUIN 500MG/100ML 500 MG/100 ML BAG IV SCH (21:53)
[2019-01-11] MEDS: LOVENOX SUB-Q SCH (21:54)
[2019-01-12] MEDS: DUONEB *Not for PRN Use IH SCH ×4 (01:12→20:52)
[2019-01-12] MEDS: VANCOMYCIN 1,250 MG in NACL 0.9% 250ML 250 ML IV SCH ×2 (03:05→15:00)
[2019-01-12] MEDS: LASIX IV SCH (05:19)
[2019-01-12] MEDS: SOLU-Medrol IV SCH ×2 (05:19→14:00)
--- NOTE | 2019-01-12 05:48 | Progress Note ---
Assessment and Plan Assessment and plan: Acute on chronic respiratory failure Admitted to Telemetry supplemental Oxygen Pulm consulted, following. Her Pulmonology is COPD exacerbation solumedrol iv duoneb Lung mass was being evaluated as outpatient by Dr. Jackson Acute on chronic diastolic CHF Lasix Cardiology following Cardiology wants to do cardiac cath but on hold because of positive blood culture Positive blood cultures 1 in 4 Repeat blood cultures ordered No fever, no leukocytosis consulted ID Physician to evaluate especially since she needs to have cardiac cath done Mitral stenosis cardiac cath needed to evaluate Cor pulmonale/Pulm hypertension Pulm following Positive blood culture Gram pos cocci in clusters on 01/09 Started Vanco, cont Levaquin Repeat ordered Diabetes mellitus type 2. Accucheck q ac hs Full code status History Interval history: less Shortness of breath History of lung mass Cardiac cath on hold because positive blood culture Hospitalist Physical - Physical exam Narrative exam: Gen: Not in acute distress, lying in bed HEENT: Normocephalic, atraumatic Neck: supple, no JVD Heart: S1 and S2 reg, no murmurs, rubs or gallop Lungs: Decreased breath sounds bilat, bilat basal crackles, rhonchi Abd: soft, non tender, non distended, normal BS Ext: No edema, no clubbing, no cyanosis, Neuro: Awake,alert, oriented x 3 - Constitutional Vitals: Temp Pulse Resp BP Pulse Ox 97.5 F L 61 18 145/97 97 01/12/19 03:57 01/12/19 03:57 01/12/19 03:57 01/12/19 03:57 01/12/19 03:57 General appearance: Present: no acute distress Results - Labs CBC & Chem 7: 01/08/19 05:15 01/11/19 05:34 Labs: Laboratory Last Values WBC 7.2 K/mm3 (4.5-11.0) 01/08/19 05:15 RBC 3.83 M/mm3 (3.65-5.03) 01/08/19 05:15 Hgb 11.5 gm/dl (10.1-14.3) 01/08/19 05:15 Hct 35.4 % (30.3-42.9) 01/08/19 05:15 MCV 93 fl (79-97) 01/08/19 05:15 MCH 30 pg (28-32) 01/08/19 05:15 MCHC 32 % (30-34) 01/08/19 05:15 RDW 15.7 % (13.2-15.2) H 01/08/19 05:15 Plt Count 223 K/mm3 (140-440) 01/08/19 05:15 Lymph % (Auto) 18.0 % (13.4-35.0) 01/07/19 17:19 [place] % (Auto) 6.8 % (0.0-7.3) 01/07/19 17:19 Eos % (Auto) 1.3 % (0.0-4.3) 01/07/19 17:19 Baso % (Auto) 1.1 % (0.0-1.8) 01/07/19 17:19 Lymph # 1.3 K/mm3 (1.2-5.4) 01/07/19 17:19 [place] # 0.5 K/mm3 (0.0-0.8) 01/07/19 17:19 Eos # 0.1 K/mm3 (0.0-0.4) 01/07/19 17:19 Baso # 0.1 K/mm3 (0.0-0.1) 01/07/19 17:19 Add Manual Diff Complete 01/08/19 05:15 Total Counted 100 01/08/19 05:15 Seg Neutrophils % 72.8 % (40.0-70.0) H 01/07/19 17:19 Seg Neuts % (Manual) 92.0 % (40.0-70.0) H 01/08/19 05:15 1.0 % 01/08/19 05:15 7.0 % (13.4-35.0) L 01/08/19 05:15 Reactive Lymphs % (Man) 0 % 01/08/19 05:15 0 % (0.0-7.3) 01/08/19 05:15 0 % (0.0-4.3) 01/08/19 05:15 0 % (0.0-1.8) 01/08/19 05:15 0 % 01/08/19 05:15 0 % 01/08/19 05:15 0 % 01/08/19 05:15 0 % 01/08/19 05:15 Nucleated RBC % Not Reportable 01/08/19 05:15 Seg Neutrophils # 5.4 K/mm3 (1.8-7.7) 01/07/19 17:19 Seg Neutrophils # Man 6.6 K/mm3 (1.8-7.7) 01/08/19 05:15 Band Neutrophils # 0.1 K/mm3 01/08/19 05:15 0.5 K/mm3 (1.2-5.4) L 01/08/19 05:15 Abs React Lymphs (Man) 0.0 K/mm3 01/08/19 05:15 0.0 K/mm3 (0.0-0.8) 01/08/19 05:15 0.0 K/mm3 (0.0-0.4) 01/08/19 05:15 0.0 K/mm3 (0.0-0.1) 01/08/19 05:15 0.0 K/mm3 01/08/19 05:15 0.0 K/mm3 01/08/19 05:15 0.0 K/mm3 01/08/19 05:15 Blast Cells # 0.0 K/mm3 01/08/19 05:15 WBC Morphology Not Reportable 01/08/19 05:15 Hypersegmented Neuts Not Reportable 01/08/19 05:15 Hyposegmented Neuts Not Reportable 01/08/19 05:15 Hypogranular Neuts Not Reportable 01/08/19 05:15 Not Reportable 01/08/19 05:15 Not Reportable 01/08/19 05:15 Not Reportable 01/08/19 05:15 Not Reportable 01/08/19 05:15 Not Reportable 01/08/19 05:15 Not Reportable 01/08/19 05:15 Consistent w auto 01/08/19 05:15 Not Reportable 01/08/19 05:15 Plt Clumps, EDTA Not Reportable 01/08/19 05:15 Not Reportable 01/08/19 05:15 Not Reportable 01/08/19 05:15 Not Reportable 01/08/19 05:15 Plt Morphology Comment Not Reportable 01/08/19 05:15 RBC Morphology Normal 01/08/19 05:15 Dimorphic RBCs Not Reportable 01/08/19 05:15 Not Reportable 01/08/19 05:15 Not Reportable 01/08/19 05:15 Not Reportable 01/08/19 05:15 Not Reportable 01/08/19 05:15 Not Reportable 01/08/19 05:15 Not Reportable 01/08/19 05:15 Not Reportable 01/08/19 05:15 Not Reportable 01/08/19 05:15 Not Reportable 01/08/19 05:15 Not Reportable 01/08/19 05:15 Not Reportable 01/08/19 05:15 Not Reportable 01/08/19 05:15 Not Reportable 01/08/19 05:15 Not Reportable 01/08/19 05:15 Not Reportable 01/08/19 05:15 Not Reportable 01/08/19 05:15 Not Reportable 01/08/19 05:15 Not Reportable 01/08/19 05:15 Not Reportable 01/08/19 05:15 Acanthocytes (Spur) Not Reportable 01/08/19 05:15 Rouleaux Not Reportable 01/08/19 05:15 Not Reportable 01/08/19 05:15 Not Reportable 01/08/19 05:15 Not Reportable 01/08/19 05:15 Not Reportable 01/08/19 05:15 Hem Pathologist Commnt No 01/08/19 05:15 PT 13.5 Sec. (12.2-14.9) 01/11/19 08:05 INR 0.97 (0.87-1.13) 01/11/19 08:05 POC ABG pH 7.366 (7.35-7.45) 01/07/19 17:55 POC ABG pCO2 59.1 (35-45) H 01/07/19 17:55 POC ABG pO2 63 (80-105) L 01/07/19 17:55 POC ABG HCO3 33.8 (22-26 mml/L) 01/07/19 17:55 POC ABG Total CO2 36 (23-27mmol/L) 01/07/19 17:55 POC ABG O2 Sat 90 01/07/19 17:55 POC ABG Base Excess 8 ((-2) - (+3)mmol/L) 01/07/19 17:55 50 % 05/09/19 17:55 Sodium 137 mmol/L (137-145) 01/11/19 05:34 Potassium 5.0 mmol/L (3.6-5.0) 01/11/19 05:34 Chloride 97.7 mmol/L (98-107) L 01/11/19 05:34 Carbon Dioxide 30 mmol/L (22-30) 01/11/19 05:34 14 mmol/L 01/11/19 05:34 BUN 27 mg/dL (7-17) H 01/11/19 05:34 0.9 mg/dL (0.7-1.2) 01/11/19 05:34 Estimated GFR > 60 ml/min 01/11/19 05:34 30 % 01/11/19 05:34 Glucose 390 mg/dL (65-100) H 01/11/19 05:34 POC Glucose 408 (70-105) H 01/11/19 21:22 11.0 % (4-6) H 01/07/19 17:19 Calcium 8.5 mg/dL (8.4-10.2) 01/11/19 05:34 Magnesium 2.50 mg/dL (1.7-2.3) H 01/07/19 17:19 0.80 mg/dL (0.1-1.2) 01/07/19 17:19 AST 17 units/L (5-40) 01/07/19 17:19 ALT 13 units/L (7-56) 01/07/19 17:19 119 units/L (35-129) 01/07/19 17:19 < 0.010 ng/mL (0.00-0.029) 01/07/19 17:19 7.0 g/dL (6.3-8.2) 01/07/19 17:19 2.9 g/dL (3.9-5) L 01/07/19 17:19 0.7 % 01/07/19 17:19 Vancomycin Trough 20.2 ug/mL (5.0-20.0) H 01/11/19 11:09 Active Medications - Current Medications Current Medications: Generic Name Dose Route Start Last Admin Trade Name Freq PRN Reason Stop Dose Admin Acetaminophen 650 mg 01/07/19 19:33 01/08/19 22:31 Tylenol PO 650 mg Q4H PRN Administration Pain MILD(1-3)/Fever >100.5/WANG Albuterol 2.5 mg 01/07/19 19:33 01/10/19 17:02 Proventil IH 2.5 mg Q4HRT PRN Administration Shortness Of Breath Albuterol/Ipratropium 1 ampul 01/07/19 20:00 01/12/19 01:12 Duoneb *Not For Prn Use* IH 1 ampul Q6HRT [facility] Administration Allopurinol 300 mg 01/08/19 10:00 01/11/19 11:07 Zyloprim PO 300 mg DAILY [facility] Administration Amlodipine Besylate 10 mg 01/08/19 10:00 01/11/19 11:06 Norvasc PO 10 mg DAILY [facility] Administration Aspirin 81 mg 01/08/19 10:00 01/11/19 11:07 Baby Aspirin PO 81 mg QDAY [facility] Administration Budesonide 0.5 mg 01/07/19 20:00 01/11/19 21:25 Pulmicort IH 0.5 mg Q12HRT [facility] Administration Carvedilol 6.25 mg 01/07/19 22:00 01/11/19 21:40 Coreg PO 6.25 mg BID [facility] Administration Dextrose 50 ml 01/07/19 19:35 D50w (25gm) Syringe IV PRN PRN Hypoglycemia Docusate Sodium 100 mg 01/07/19 22:00 01/11/19 21:40 Colace PO 100 mg BID [facility] Administration Enoxaparin Sodium 40 mg 01/07/19 22:00 01/11/19 21:54 Lovenox SUB-Q 40 mg QDAY@2200 [facility] Administration Furosemide 40 mg 01/08/19 06:00 01/12/19 05:19 Lasix IV 40 mg DAILY@0600 [facility] Administration Hydralazine HCl 10 mg 01/07/19 19:38 Apresoline IV Q4HR PRN Blood Pressure Levofloxacin/Dextrose 500 mg in 100 mls @ 100 mls/hr 01/07/19 21:00 01/11/19 21:53 Levaquin 500mg/100ml IV 100 mls/hr Q24H [facility] Administration Protocol Vancomycin HCl 1,250 mg/ 275 mls @ 166.667 mls/hr 01/11/19 15:00 01/12/19 03:05 Sodium Chloride IV 166.667 mls/hr Q12H [facility] Administration Insulin Glargine 35 units 01/08/19 18:24 01/11/19 21:41 Lantus SUB-Q 35 units QHS [facility] Administration Insulin Human Lispro 0 unit 01/07/19 22:00 01/11/19 21:54 Humalog SUB-Q 8 unit ACHS [facility] Administration Protocol Isosorbide Dinitrate/Hydralazine 1 each 01/07/19 22:00 01/11/19 21:39 Bidil 20/37.5mg PO 1 each BID [facility] Administration Metformin HCl 500 mg 01/07/19 22:00 01/11/19 21:55 Glucophage PO Not Given BID [facility] Methylprednisolone Sodium Succinate 60 mg 01/07/19 22:00 01/12/19 05:19 Solu-Medrol IV 60 mg Q8HR [facility] Administration Ondansetron HCl 4 mg 01/07/19 19:33 Zofran IV Q8H PRN Nausea And Vomiting Pantoprazole Sodium 40 mg 01/08/19 10:00 01/11/19 11:07 Protonix PO 40 mg QDAY [facility] Administration Pravastatin Sodium 80 mg 01/07/19 22:00 01/11/19 21:39 Pravachol PO 80 mg QHS [facility] Administration Sodium Chloride 10 ml 01/07/19 22:00 01/11/19 21:53 Sodium Chloride Flush Syringe 10 Ml IV 10 ml BID [place] Administration Sodium Chloride 10 ml 01/07/19 19:33 Sodium Chloride Flush Syringe 10 Ml IV PRN PRN LINE FLUSH Nutrition/Malnutrition Assess - Dietary Evaluation Nutrition/Malnutrition Findings: Nutrition Notes Start: 01/08/19 16:31 Freq: Status: Active Protocol: Document 01/08/19 16:31 RM (Rec: 01/08/19 16:34 RM [id number]) Nutrition Notes Need for Assessment generated from: MD Order,Education Initial or Follow up Assessment Current Diagnosis COPD,Diabetes,Hypertension, Heart Failure,Hyperlipidemia Labs/Tests A1c 11 Subjective/Other Information Consulted for DM diet education. Pt stated that she had been previously educated but was not taught carbohydrate counting. Reviewed DM diet education. Gave handout. #1 Nutrition Diagnosis Food and nutrition-related knowledge deficit Etiology inadequate prior education As Evidenced by Signs and Symptoms pt desire for education Nutrition Intervention Teaching Recipient Patient Learning Readiness Good Teaching Methods Discussion,Handout Response to Teaching Verbalize understanding Education Handouts Provided Carbohydrate Counting for People with Diabetes Barriers to Learning No Barriers RD phone number provided Yes Patient aware of follow up options Yes Goal #1 Utilize carbohydrate counting Revisit per MD consult or patient Sign Off request:
[2019-01-12 06:45] LABS: BUN/Creatinine Ratio 33; Blood Urea Nitrogen 30 mg/dL (7-17); Calcium 8.5 mg/dL (8.4-10.2); Hemolysis Index 3
[2019-01-12] MEDS: VANCOMYCIN 1,500 MG in NACL 0.9% 500 ML 500 ML IV SCH (07:49)
[2019-01-12] MEDS: PULMICORT IH SCH ×2 (09:28→20:52)
[2019-01-12] MEDS: COREG PO SCH ×2 (09:50→22:07)
[2019-01-12] MEDS: GLUCOPHAGE PO SCH ×3 (09:50→22:10)
[2019-01-12] MEDS: HumaLOG SUB-Q SCH ×4 (09:50→22:11)
[2019-01-12] MEDS: BABY ASPIRIN PO SCH (09:50)
[2019-01-12] MEDS: COLACE PO SCH ×2 (09:50→22:12)
[2019-01-12] MEDS: NORVASC PO SCH (09:51)
[2019-01-12] MEDS: PROTONIX PO SCH (09:51)
[2019-01-12] MEDS: BIDIL 20/37.5MG PO SCH ×2 (09:51→22:07)
[2019-01-12] MEDS: ZYLOPRIM PO SCH (09:51)
[2019-01-12] MEDS: SODIUM CHLORIDE FLUSH SYRINGE 10 ML IV SCH ×2 (09:51→22:08)
--- NOTE | 2019-01-12 10:17 | Progress Note ---
Assessment and Plan Cultures: Blood culture 01/07/2019 Micrococus +other species Blood culture 01/10/2019 no growth in 48 hours Assessment: 53 y/o female with history of obesity, chronic nicotine dependence, hypertens ion, diabetes, hyperlipidemia, COPD on home oxygen, CHF, left lower lobe calcified nodule, Pulm HTN, ETHAN/OHS, Acute/chronic respiratory failure, hypoxia, Chronic hypercapneic respiratory failure, recently admitted on 01/07/2019 due to worsening shortness of breath: 1) Micrococcus bacteremia: plus other species. Blood culture 01/07/2019 GPC in clusters 1 of 4 bottles, likely contaminant, patient w/o sepsis, no fever, no leukocytosis. No intravenous indwelling devices. 2) Acute on chronic respiratory failure: multifactorial-recurrent congestive heart failure, COPD, ETHAN, pulm HTN 3) LLL nodule: has been present for years and was hypometabolic on 06/2018 per pulmonary; she did have some enlarged mediastinal/axillary/supraclavicular nodes on PET which she is aware of, but she has not followed up re: these as recommended (supposed to f/u with heme/onc and Dr. Priest); recommend a f/u PET +/- biopsy as outpatient. Discharged from [facility] last month with plan to undergo ischemic evaluation with L/RHC as outpatient. Denies fever, chills, N/V/D, productive cough. Recommendations: - follow-up blood cultures - repeat blood cultures negative for 48 hours, ok to do right and left heart catheterization for further assessment of mitral valve pathology - discontinue levaquin and vancomycin -monitor off antibiotics [id number] M: [phone] O:[phone] Subjective Date of service: 01/12/19 Principal diagnosis: Shortness of breath Interval history: Patient seen and examined. Reports no acute distress. No fevers. Objective - Exam Narrative Exam: Constitutional: Alert, cooperative. No acute distress Head, Ears, Nose: Normocephalic, atraumatic. External ears, nose normal Eyes: Conjunctivae/corneas clear. No icterus. No ptosis. Neck: Supple, no meningeal signs Oral: dentition fair. No thrush. Cardiovascular: S1, S2 normal. Respiratory: Good air entry, clear to auscultation bilaterally GI: Soft, non-tender; bowel sounds normal. No peritoneal signs Musculoskeletal: No pedal edema, no cyanosis. Skin: No rash or abscess. Hem/Lymphatic: No palpable cervical or supraclavicular nodes. No lymphangitis Psych: Mood ok. Affect normal Neurological: Awake, alert, oriented. - Constitutional Vitals: Vital Signs Temp Pulse Resp BP Pulse Ox 32.1 F L 84 20 153/83 95 01/12/19 08:14 01/12/19 09:42 01/12/19 09:42 01/12/19 08:14 01/12/19 09:44 Temperature -Last 24 Hours Temperature 32.1 F Temperature 97.5 F Temperature 97.4 F Temperature 98.3 F Temperature 98.4 F Temperature 98.3 F - Labs CBC & Chem 7: 01/08/19 05:15 01/12/19 05:04 Labs: Abnormal lab results 01/11/19 01/11/19 01/11/19 Range/Units 11:09 12:18 16:54 Sodium (137-145) mmol/L Chloride (98-107) mmol/L Carbon Dioxide (22-30) mmol/L BUN (7-17) mg/dL Glucose (65-100) mg/dL POC Glucose 320 H 371 H (70-105) Vancomycin Trough 20.2 H (5.0-20.0) ug/mL 01/11/19 01/12/19 Range/Units 21:22 05:04 Sodium 135 L (137-145) mmol/L Chloride 94.3 L (98-107) mmol/L Carbon Dioxide 33 H (22-30) mmol/L BUN 30 H (7-17) mg/dL Glucose 404 H (65-100) mg/dL POC Glucose 408 H (70-105) Vancomycin Trough (5.0-20.0) ug/mL
--- NOTE | 2019-01-12 11:10 | Progress Note ---
Assessment and Plan Assessment and plan: Acute on chronic respiratory failure. Etiology multifactorial secondary to diastolic heart failure, COPD, ETHAN/OHS and pulmonary hypertension. Admitted to Telemetry supplemental Oxygen Pulm consulted, following. Her Pulmonology is COPD exacerbation solumedrol iv duoneb Lung mass/nodule was being evaluated as outpatient by Dr. Jackson. Will need further follow-up as an outpatient with possible PET scan. Acute on chronic diastolic CHF [facility] Cardiology following Cardiology wants to perform cardiac cath but on hold because of positive blood culture Positive blood cultures 1 in 4, likely a contaminant Repeat blood cultures pending ID consulted to evaluate Mitral stenosis cardiac cath pending negative blood cultures Cor pulmonale/Pulm hypertension Pulm following Positive blood culture Gram pos cocci in clusters on 01/09 Started Vanco, cont Levaquin De-escalate antibiotics per ID and blood cultures. Diabetes mellitus type 2. Accucheck q ac hs Full code status History Interval history: No new issues overnight. Hospitalist Physical - Constitutional Vitals: Temp Pulse Resp BP Pulse Ox 32.1 F L 84 20 153/83 95 01/12/19 08:14 01/12/19 09:42 01/12/19 09:42 01/12/19 08:14 01/12/19 09:44 General appearance: Present: no acute distress - EENT Eyes: Present: PERRL, EOM intact ENT: hearing intact, clear oral mucosa, dentition normal - Neck Neck: Present: supple, normal ROM - Respiratory Respiratory effort: normal Respiratory: bilateral: CTA - Cardiovascular Rhythm: regular Heart Sounds: Present: S1 & S2. Absent: gallop, rub - Extremities Extremities: no ischemia, No edema, Full ROM - Abdominal General gastrointestinal: soft, non-tender, non-distended, normal bowel sounds - Integumentary Integumentary: Present: clear, warm, dry - Neurologic Neurologic: CNII-XII intact, moves all extremities Results - Labs CBC & Chem 7: 01/08/19 05:15 01/12/19 05:04 Labs: Laboratory Last Values WBC 7.2 K/mm3 (4.5-11.0) 01/08/19 05:15 RBC 3.83 M/mm3 (3.65-5.03) 01/08/19 05:15 Hgb 11.5 gm/dl (10.1-14.3) 01/08/19 05:15 Hct 35.4 % (30.3-42.9) 01/08/19 05:15 MCV 93 fl (79-97) 01/08/19 05:15 MCH 30 pg (28-32) 01/08/19 05:15 MCHC 32 % (30-34) 01/08/19 05:15 RDW 15.7 % (13.2-15.2) H 01/08/19 05:15 Plt Count 223 K/mm3 (140-440) 01/08/19 05:15 Lymph % (Auto) 18.0 % (13.4-35.0) 01/07/19 17:19 [place] % (Auto) 6.8 % (0.0-7.3) 01/07/19 17:19 Eos % (Auto) 1.3 % (0.0-4.3) 01/07/19 17:19 Baso % (Auto) 1.1 % (0.0-1.8) 01/07/19 17:19 Lymph # 1.3 K/mm3 (1.2-5.4) 01/07/19 17:19 [place] # 0.5 K/mm3 (0.0-0.8) 01/07/19 17:19 Eos # 0.1 K/mm3 (0.0-0.4) 01/07/19 17:19 Baso # 0.1 K/mm3 (0.0-0.1) 01/07/19 17:19 Add Manual Diff Complete 01/08/19 05:15 Total Counted 100 01/08/19 05:15 Seg Neutrophils % 72.8 % (40.0-70.0) H 01/07/19 17:19 Seg Neuts % (Manual) 92.0 % (40.0-70.0) H 01/08/19 05:15 1.0 % 01/08/19 05:15 7.0 % (13.4-35.0) L 01/08/19 05:15 Reactive Lymphs % (Man) 0 % 01/08/19 05:15 0 % (0.0-7.3) 01/08/19 05:15 0 % (0.0-4.3) 01/08/19 05:15 0 % (0.0-1.8) 01/08/19 05:15 0 % 01/08/19 05:15 0 % 01/08/19 05:15 0 % 01/08/19 05:15 0 % 01/08/19 05:15 Nucleated RBC % Not Reportable 01/08/19 05:15 Seg Neutrophils # 5.4 K/mm3 (1.8-7.7) 01/07/19 17:19 Seg Neutrophils # Man 6.6 K/mm3 (1.8-7.7) 01/08/19 05:15 Band Neutrophils # 0.1 K/mm3 01/08/19 05:15 0.5 K/mm3 (1.2-5.4) L 01/08/19 05:15 Abs React Lymphs (Man) 0.0 K/mm3 01/08/19 05:15 0.0 K/mm3 (0.0-0.8) 01/08/19 05:15 0.0 K/mm3 (0.0-0.4) 01/08/19 05:15 0.0 K/mm3 (0.0-0.1) 01/08/19 05:15 0.0 K/mm3 01/08/19 05:15 0.0 K/mm3 01/08/19 05:15 0.0 K/mm3 01/08/19 05:15 Blast Cells # 0.0 K/mm3 01/08/19 05:15 WBC Morphology Not Reportable 01/08/19 05:15 Hypersegmented Neuts Not Reportable 01/08/19 05:15 Hyposegmented Neuts Not Reportable 01/08/19 05:15 Hypogranular Neuts Not Reportable 01/08/19 05:15 Not Reportable 01/08/19 05:15 Not Reportable 01/08/19 05:15 Not Reportable 01/08/19 05:15 Not Reportable 01/08/19 05:15 Not Reportable 01/08/19 05:15 Not Reportable 01/08/19 05:15 Consistent w auto 01/08/19 05:15 Not Reportable 01/08/19 05:15 Plt Clumps, EDTA Not Reportable 01/08/19 05:15 Not Reportable 01/08/19 05:15 Not Reportable 01/08/19 05:15 Not Reportable 01/08/19 05:15 Plt Morphology Comment Not Reportable 01/08/19 05:15 RBC Morphology Normal 01/08/19 05:15 Dimorphic RBCs Not Reportable 01/08/19 05:15 Not Reportable 01/08/19 05:15 Not Reportable 01/08/19 05:15 Not Reportable 01/08/19 05:15 Not Reportable 01/08/19 05:15 Not Reportable 01/08/19 05:15 Not Reportable 01/08/19 05:15 Not Reportable 01/08/19 05:15 Not Reportable 01/08/19 05:15 Not Reportable 01/08/19 05:15 Not Reportable 01/08/19 05:15 Not Reportable 01/08/19 05:15 Not Reportable 01/08/19 05:15 Not Reportable 01/08/19 05:15 Not Reportable 01/08/19 05:15 Not Reportable 01/08/19 05:15 Not Reportable 01/08/19 05:15 Not Reportable 01/08/19 05:15 Not Reportable 01/08/19 05:15 Not Reportable 01/08/19 05:15 Acanthocytes (Spur) Not Reportable 01/08/19 05:15 Rouleaux Not Reportable 01/08/19 05:15 Not Reportable 01/08/19 05:15 Not Reportable 01/08/19 05:15 Not Reportable 01/08/19 05:15 Not Reportable 01/08/19 05:15 Hem Pathologist Commnt No 01/08/19 05:15 PT 13.5 Sec. (12.2-14.9) 01/11/19 08:05 INR 0.97 (0.87-1.13) 01/11/19 08:05 POC ABG pH 7.366 (7.35-7.45) 01/07/19 17:55 POC ABG pCO2 59.1 (35-45) H 01/07/19 17:55 POC ABG pO2 63 (80-105) L 01/07/19 17:55 POC ABG HCO3 33.8 (22-26 mml/L) 01/07/19 17:55 POC ABG Total CO2 36 (23-27mmol/L) 01/07/19 17:55 POC ABG O2 Sat 90 01/07/19 17:55 POC ABG Base Excess 8 ((-2) - (+3)mmol/L) 01/07/19 17:55 50 % 01/07/19 17:55 Sodium 135 mmol/L (137-145) L 01/12/19 05:04 Potassium 4.8 mmol/L (3.6-5.0) 01/12/19 05:04 Chloride 94.3 mmol/L (98-107) L 01/12/19 05:04 Carbon Dioxide 33 mmol/L (22-30) H 01/12/19 05:04 13 mmol/L 01/12/19 05:04 BUN 30 mg/dL (7-17) H 01/12/19 05:04 0.9 mg/dL (0.7-1.2) 01/12/19 05:04 Estimated GFR > 60 ml/min 01/12/19 05:04 33 % 01/12/19 05:04 Glucose 404 mg/dL (65-100) H 01/12/19 05:04 POC Glucose 345 (70-105) H 01/12/19 08:21 11.0 % (4-6) H 01/07/19 17:19 Calcium 8.5 mg/dL (8.4-10.2) 01/12/19 05:04 Magnesium 2.50 mg/dL (1.7-2.3) H 01/07/19 17:19 0.80 mg/dL (0.1-1.2) 01/07/19 17:19 AST 17 units/L (5-40) 01/07/19 17:19 ALT 13 units/L (7-56) 01/07/19 17:19 119 units/L (35-129) 01/07/19 17:19 < 0.010 ng/mL (0.00-0.029) 01/07/19 17:19 7.0 g/dL (6.3-8.2) 01/07/19 17:19 2.9 g/dL (3.9-5) L 01/07/19 17:19 0.7 % 01/07/19 17:19 Vancomycin Trough 20.2 ug/mL (5.0-20.0) H 01/11/19 11:09 Active Medications - Current Medications Current Medications: Generic Name Dose Route Start Last Admin Trade Name Freq PRN Reason Stop Dose Admin Acetaminophen 650 mg 01/07/19 19:33 01/08/19 22:31 Tylenol PO 650 mg Q4H PRN Administration Pain MILD(1-3)/Fever >100.5/WANG Albuterol 2.5 mg 01/07/19 19:33 01/10/19 17:02 Proventil IH 2.5 mg Q4HRT PRN Administration Shortness Of Breath Albuterol/Ipratropium 1 ampul 01/07/19 20:00 01/12/19 09:28 Duoneb *Not For Prn Use* IH 1 ampul Q6HRT [place]A Administration Allopurinol 300 mg 01/08/19 10:00 01/12/19 09:51 Zyloprim PO 300 mg DAILY [place] Administration Amlodipine Besylate 10 mg 01/08/19 10:00 01/12/19 09:51 Norvasc PO 10 mg DAILY [place] Administration Aspirin 81 mg 01/08/19 10:00 01/12/19 09:50 Baby Aspirin PO 81 mg QDAY [place] Administration Budesonide 0.5 mg 01/07/19 20:00 01/12/19 09:28 Pulmicort IH 0.5 mg Q12HRT [place] Administration Carvedilol 6.25 mg 01/07/19 22:00 01/12/19 09:50 Coreg PO 6.25 mg BID [place] Administration Dextrose 50 ml 01/07/19 19:35 D50w (25gm) Syringe IV PRN PRN Hypoglycemia Docusate Sodium 100 mg 01/07/19 22:00 01/12/19 09:50 Colace PO 100 mg BID [place] Administration Enoxaparin Sodium 40 mg 01/07/19 22:00 01/11/19 21:54 Lovenox SUB-Q 40 mg QDAY@2200 [place] Administration Furosemide 40 mg 01/08/19 06:00 01/12/19 05:19 Lasix IV 40 mg DAILY@0600 [place] Administration Hydralazine HCl 10 mg 01/07/19 19:38 Apresoline IV Q4HR PRN Blood Pressure Levofloxacin/Dextrose 500 mg in 100 mls @ 100 mls/hr 01/07/19 21:00 01/11/19 21:53 Levaquin 500mg/100ml IV 100 mls/hr Q24H [place] Administration Protocol Vancomycin HCl 1,250 mg/ 275 mls @ 166.667 mls/hr 01/11/19 15:00 01/12/19 03:05 Sodium Chloride IV 166.667 mls/hr Q12H [place] Administration Insulin Glargine 35 units 01/08/19 18:24 01/11/19 21:41 Lantus SUB-Q 35 units QHS [place] Administration Insulin Human Lispro 0 unit 01/07/19 22:00 01/12/19 09:50 Humalog SUB-Q 6 unit ACHS [place] Administration Protocol Isosorbide Dinitrate/Hydralazine 1 each 01/07/19 22:00 01/12/19 09:51 Bidil 20/37.5mg PO 1 each BID [place] Administration Metformin HCl 500 mg 01/07/19 22:00 01/12/19 09:53 Glucophage PO Not Given BID [facility] Methylprednisolone Sodium Succinate 60 mg 01/07/19 22:00 01/12/19 05:19 Solu-Medrol IV 60 mg Q8HR [place] Administration Ondansetron HCl 4 mg 01/07/19 19:33 Zofran IV Q8H PRN Nausea And Vomiting Pantoprazole Sodium 40 mg 01/08/19 10:00 01/12/19 09:51 Protonix PO 40 mg QDAY [place] Administration Pravastatin Sodium 80 mg 01/07/19 22:00 01/11/19 21:39 Pravachol PO 80 mg QHS [place] Administration Sodium Chloride 10 ml 01/07/19 22:00 01/12/19 09:51 Sodium Chloride Flush Syringe 10 Ml IV 10 ml BID [place] Administration Sodium Chloride 10 ml 01/07/19 19:33 Sodium Chloride Flush Syringe 10 Ml IV PRN PRN LINE FLUSH Nutrition/Malnutrition Assess - Dietary Evaluation Nutrition/Malnutrition Findings: Nutrition Notes Start: 01/08/19 16:31 Freq: Status: Active Protocol: Document 01/08/19 16:31 RM (Rec: 01/08/19 16:34 RM [id number]) Nutrition Notes Need for Assessment generated from: MD Order,Education Initial or Follow up Assessment Current Diagnosis COPD,Diabetes,Hypertension, Heart Failure,Hyperlipidemia Labs/Tests A1c 11 Subjective/Other Information Consulted for DM diet education. Pt stated that she had been previously educated but was not taught carbohydrate counting. Reviewed DM diet education. Gave handout. #1 Nutrition Diagnosis Food and nutrition-related knowledge deficit Etiology inadequate prior education As Evidenced by Signs and Symptoms pt desire for education Nutrition Intervention Teaching Recipient Patient Learning Readiness Good Teaching Methods Discussion,Handout Response to Teaching Verbalize understanding Education Handouts Provided Carbohydrate Counting for People with Diabetes Barriers to Learning No Barriers RD phone number provided Yes Patient aware of follow up options Yes Goal #1 Utilize carbohydrate counting Revisit per MD consult or patient Sign Off request:
[2019-01-12] MEDS ORDERED: HumaLOG SUB-Q ONE (12:35)
--- NOTE | 2019-01-12 12:35 | Event Note ---
Date: 01/12/19 Right and left heart catheterization is planned for today, for further evaluation of mitral stenosis and recurrent heart failure. The patient inadvertently was fed with breakfast, so cardiac catheterization will be delayed for at least 5-6 hours postprandial.
[2019-01-12] MEDS ORDERED: NACL 0.9% 500 ML 500 ML ONE (13:32)
[2019-01-12] MEDS ORDERED: SUBLIMAZE ONE (13:46)
[2019-01-12] MEDS ORDERED: VERSED ONE (13:46)
[2019-01-12] MEDS ORDERED: HEPARIN/NS 5000 UNIT/500ML(CATH LAB) 1,000 ML IR ONE (13:47)
[2019-01-12] MEDS ORDERED: HEPARIN 10,000 UNITS/10 ML ONE (13:47)
[2019-01-12] MEDS ORDERED: XYLOCAINE 2% INFILTRATI ONE ×2 (13:48→14:21)
--- NOTE | 2019-01-12 16:11 | Progress Note ---
Assessment and Plan Imp: 1. Acute/chronic systolic CHF 2. Pulm HTN, suspect due to L-sided heart disease, ETHAN/OHS, and COPD 3. Acute/chronic respiratory failure, hypoxia 4. Chronic hypercapneic respiratory failure 5. Obesity with ETHAN/OHS 6. Chronic nicotine dependence, cigs 7. LLL Pulm nodule Rec: 1. Cont. Diuresis, BP optimization 2. Weight loss, CPAP QHS, sodium restriction, and smoking cessation needed as outpatient 3. LLL nodule has been present for years and was hypometabolic on 06/2018; she did have some enlarged mediastinal/axillary/supraclavicular nodes on PET which she is aware of, but she has not followed up re: these as recommended (supposed to f/u with heme/onc and Dr. Priest); recommend a f/u PET +/- biopsy as outpatient (advised her again of need to f/u with Dr. Priest [facility] post-discharge, she expressed understanding) 4. F/u RHC/LHC results 5. 1 of 4 GPC in clusters likely contaminant; ID on board 6. Change to Prednisone 40mg in the AM, and taper slowly as an outpatient 7. Okay for d/c planning pulmonary-angela; prognosis is guarded due to poor compliance and f/u, plus ongoing smoking Plan of care reviewed w/ patient, she understands/agrees Subjective Date of service: 01/12/19 Principal diagnosis: Shortness of breath Interval history: LHC/RHC done this afternoon, and she is resting comfortably in room now. On 3L NC. SOB better w/ diuresis. No chest pain currently. No new complaints. Active Medications Acetaminophen (Tylenol) 650 mg PO Q4H PRN PRN Reason: Pain MILD(1-3)/Fever >100.5/WANG Last Admin: 01/08/19 22:31 Dose: 650 mg Documented by: Albuterol (Proventil) 2.5 mg IH Q4HRT PRN PRN Reason: Shortness Of Breath Last Admin: 01/10/19 17:02 Dose: 2.5 mg Documented by: Albuterol/Ipratropium (Duoneb *Not For Prn Use*) 1 ampul IH Q6HRT [place] Last Admin: 01/12/19 15:10 Dose: Not Given Documented by: Allopurinol (Zyloprim) 300 mg PO DAILY [facility] Last Admin: 01/12/19 09:51 Dose: 300 mg Documented by: Amlodipine Besylate (Norvasc) 10 mg PO DAILY [facility] Last Admin: 01/12/19 09:51 Dose: 10 mg Documented by: Aspirin (Baby Aspirin) 81 mg PO QDAY [facility] Last Admin: 01/12/19 09:50 Dose: 81 mg Documented by: Budesonide (Pulmicort) 0.5 mg IH Q12HRT [facility] Last Admin: 01/12/19 09:28 Dose: 0.5 mg Documented by: Carvedilol (Coreg) 6.25 mg PO BID [facility] Last Admin: 01/12/19 09:50 Dose: 6.25 mg Documented by: Dextrose (D50w (25gm) Syringe) 50 ml IV PRN PRN PRN Reason: Hypoglycemia Docusate Sodium (Colace) 100 mg PO BID [facility] Last Admin: 01/12/19 09:50 Dose: 100 mg Documented by: Enoxaparin Sodium (Lovenox) 40 mg SUB-Q QDAY@2200 [facility] Last Admin: 01/11/19 21:54 Dose: 40 mg Documented by: Furosemide (Lasix) 40 mg IV DAILY@0600 [facility] Last Admin: 01/12/19 05:19 Dose: 40 mg Documented by: Hydralazine HCl (Apresoline) 10 mg IV Q4HR PRN PRN Reason: Blood Pressure Levofloxacin/Dextrose (Levaquin 500mg/100ml) 500 mg in 100 mls @ 100 mls/hr IV Q24H [facility]; Protocol Last Admin: 01/11/19 21:53 Dose: 100 mls/hr Documented by: Vancomycin HCl 1,250 mg/ (Sodium Chloride) 275 mls @ 166.667 mls/hr IV Q12H [facility] Last Admin: 01/12/19 15:00 Dose: Not Given Documented by: Sodium Chloride (Nacl 0.9% 1000 Ml) 1,000 mls @ 75 mls/hr IV DIRECT [facility] Stop: 01/12/19 22:59 Insulin Glargine (Lantus) 35 units SUB-Q QHS [facility] Last Admin: 01/11/19 21:41 Dose: 35 units Documented by: Insulin Human Lispro (Humalog) 0 unit SUB-Q ACHS [facility]; Protocol Last Admin: 01/12/19 12:36 Dose: 5 unit Documented by: Isosorbide Dinitrate/Hydralazine (Bidil 20/37.5mg) 1 each PO BID [facility] Last Admin: 01/12/19 09:51 Dose: 1 each Documented by: Metformin HCl (Glucophage) 500 mg PO BID [facility] Last Admin: 01/12/19 09:53 Dose: Not Given Documented by: Methylprednisolone Sodium Succinate (Solu-Medrol) 60 mg IV Q8HR [facility] Last Admin: 01/12/19 14:00 Dose: Not Given Documented by: Ondansetron HCl (Zofran) 4 mg IV Q8H PRN PRN Reason: Nausea And Vomiting Pantoprazole Sodium (Protonix) 40 mg PO QDAY [facility] Last Admin: 01/12/19 09:51 Dose: 40 mg Documented by: Pravastatin Sodium (Pravachol) 80 mg PO QHS [facility] Last Admin: 01/11/19 21:39 Dose: 80 mg Documented by: Sodium Chloride (Sodium Chloride Flush Syringe 10 Ml) 10 ml IV BID [facility] Last Admin: 01/12/19 09:51 Dose: 10 ml Documented by: Sodium Chloride (Sodium Chloride Flush Syringe 10 Ml) 10 ml IV PRN PRN PRN Reason: LINE FLUSH Objective Vital Signs - 12hr 01/12/19 01/12/19 01/12/19 07:00 08:14 09:42 Temperature 32.1 F L Pulse Rate 68 60 Pulse Rate [ 84 Anterior Bilateral] Pulse Rate [ 80 Throughout] Respiratory 18 Rate Respiratory 20 Rate [Anterior Bilateral] Respiratory 18 Rate [ Throughout] Blood Pressure 153/83 O2 Sat by Pulse 93 Oximetry 01/12/19 01/12/19 09:44 10:00 Temperature Pulse Rate Pulse Rate [ Anterior Bilateral] Pulse Rate [ Throughout] Respiratory 18 Rate Respiratory Rate [Anterior Bilateral] Respiratory Rate [ Throughout] Blood Pressure O2 Sat by Pulse 95 96 Oximetry Constitutional: no acute distress, alert, other (obese) Eyes: non-icteric ENT: oropharynx moist Neck: supple Effort: normal Ascultation: Bilateral: diminished breath sounds, rales (at both bases) Cardiovascular: regular rate and rhythm (no mrg) Gastrointestinal: normoactive bowel sounds, soft, non-tender, non-distended Integumentary: normal Extremities: no cyanosis, pink and warm, edema (1+ bilateral LE edema) Neurologic: normal mental status, non-focal exam, pupils equal and round, CN II- XII normal Psychiatric: mood appropriate, affect normal CBC and BMP: 01/08/19 05:15 01/12/19 05:04 ABG, PT/INR, D-dimer: ABG POC ABG pH 7.366 (7.35-7.45) 01/07/19 17:55 POC ABG pCO2 59.1 (35-45) H 01/07/19 17:55 POC ABG pO2 63 (80-105) L 01/07/19 17:55 POC ABG HCO3 33.8 (22-26 mml/L) 01/07/19 17:55 POC ABG Total CO2 36 (23-27mmol/L) 01/07/19 17:55 POC ABG O2 Sat 90 01/07/19 17:55 PT/INR, D-dimer PT 13.5 Sec. (12.2-14.9) 01/11/19 08:05 INR 0.97 (0.87-1.13) 01/11/19 08:05 Abnormal lab findings: Abnormal Labs 01/07/19 01/07/19 01/07/19 17:19 17:19 17:19 RDW 16.0 H Seg Neutrophils % 72.8 H Seg Neuts % (Manual) Lymphocytes % (Manual) Lymphocytes # (Manual) POC ABG pCO2 POC ABG pO2 Sodium Chloride 96.9 L Carbon Dioxide 32 H BUN Glucose 290 H POC Glucose Hemoglobin A1c 11.0 H Magnesium 2.50 H Albumin 2.9 L Vancomycin Trough 01/07/19 01/07/19 01/08/19 17:55 21:18 05:15 RDW 15.7 H Seg Neutrophils % Seg Neuts % (Manual) 92.0 H Lymphocytes % (Manual) 7.0 L Lymphocytes # (Manual) 0.5 L POC ABG pCO2 59.1 H POC ABG pO2 63 L Sodium Chloride Carbon Dioxide BUN Glucose POC Glucose 269 H Hemoglobin A1c Magnesium Albumin Vancomycin Trough 01/08/19 01/08/19 01/08/19 05:15 12:20 17:42 RDW Seg Neutrophils % Seg Neuts % (Manual) Lymphocytes % (Manual) Lymphocytes # (Manual) POC ABG pCO2 POC ABG pO2 Sodium Chloride 96.5 L Carbon Dioxide 33 H BUN 20 H Glucose 391 H POC Glucose 392 H 423 H Hemoglobin A1c Magnesium Albumin Vancomycin Trough 01/08/19 01/09/19 01/09/19 21:11 04:53 07:22 RDW Seg Neutrophils % Seg Neuts % (Manual) Lymphocytes % (Manual) Lymphocytes # (Manual) POC ABG pCO2 POC ABG pO2 Sodium Chloride Carbon Dioxide 31 H BUN 25 H Glucose 265 H POC Glucose 421 H 243 H Hemoglobin A1c Magnesium Albumin Vancomycin Trough 01/09/19 01/09/19 01/09/19 11:47 17:22 21:24 RDW Seg Neutrophils % Seg Neuts % (Manual) Lymphocytes % (Manual) Lymphocytes # (Manual) POC ABG pCO2 POC ABG pO2 Sodium Chloride Carbon Dioxide BUN Glucose POC Glucose 282 H 319 H 374 H Hemoglobin A1c Magnesium Albumin Vancomycin Trough 01/10/19 01/10/19 01/10/19 08:39 11:57 17:02 RDW Seg Neutrophils % Seg Neuts % (Manual) Lymphocytes % (Manual) Lymphocytes # (Manual) POC ABG pCO2 POC ABG pO2 Sodium Chloride Carbon Dioxide BUN Glucose POC Glucose 276 H 341 H 290 H Hemoglobin A1c Magnesium Albumin Vancomycin Trough 01/10/19 01/11/19 01/11/19 21:45 05:34 08:06 RDW Seg Neutrophils % Seg Neuts % (Manual) Lymphocytes % (Manual) Lymphocytes # (Manual) POC ABG pCO2 POC ABG pO2 Sodium Chloride 97.7 L Carbon Dioxide BUN 27 H Glucose 390 H POC Glucose 328 H 337 H Hemoglobin A1c Magnesium Albumin Vancomycin Trough 01/11/19 01/11/19 01/11/19 11:09 12:18 16:54 RDW Seg Neutrophils % Seg Neuts % (Manual) Lymphocytes % (Manual) Lymphocytes # (Manual) POC ABG pCO2 POC ABG pO2 Sodium Chloride Carbon Dioxide BUN Glucose POC Glucose 320 H 371 H Hemoglobin A1c Magnesium Albumin Vancomycin Trough 20.2 H 01/11/19 01/12/19 01/12/19 21:22 05:04 08:21 RDW Seg Neutrophils % Seg Neuts % (Manual) Lymphocytes % (Manual) Lymphocytes # (Manual) POC ABG pCO2 POC ABG pO2 Sodium 135 L Chloride 94.3 L Carbon Dioxide 33 H BUN 30 H Glucose 404 H POC Glucose 408 H 345 H Hemoglobin A1c Magnesium Albumin Vancomycin Trough 01/12/19 11:44 RDW Seg Neutrophils % Seg Neuts % (Manual) Lymphocytes % (Manual) Lymphocytes # (Manual) POC ABG pCO2 POC ABG pO2 Sodium Chloride Carbon Dioxide BUN Glucose POC Glucose 370 H Hemoglobin A1c Magnesium Albumin Vancomycin Trough Chest x-ray: report reviewed, image reviewed
--- NOTE | 2019-01-12 16:11 | Event Note ---
Date: 01/12/19 Patient underwent a right and left heart catheterization, no complications. Findings: 1. Severe pulmonary hypertension, PA systolic pressure of 80. 2. Moderate to severe mitral stenosis, mean mitral gradient of 11.7, mitral valve area of 1.4. 3. No significant coronary artery disease. 4. Nonischemic cardiomyopathy, left ventricular ejection fraction 35-40%. Recommendations: Medical therapy for nonischemic cardiomyopathy and systolic heart failure. Outpatient surgical assessment of mitral valve disease, preceded by cardiac MRI. Cardiac status is stable for discharge tomorrow morning.
--- NOTE | 2019-01-12 16:22 | Event Note ---
Date: 01/12/19 Physician Attestation: I have personally seen and examined patient. I personally discussed and directed assessment and management with MOLD DRESSER Alexander. Blood cultures grew Micrococcus 1 of 4 likely a contaminant. Will stop antibiotics. Monitor off antibiotics. Sweta Bedolla MD Infectious Diseases Customer Sales Consultant [facility] [id number] [phone] [id number] [phone]
[2019-01-12] MEDS ORDERED: NACL 0.9% 1000 ML 1,000 ML IV SCH (17:00)
--- NOTE | 2019-01-12 19:49 | Cardiac Catherization Report ---
CARDIAC CATHETERIZATION REPORT REASON FOR PROCEDURE: Congestive heart failure, echocardiographic evidence of mitral stenosis. PROCEDURES: 1. Right heart catheterization. 2. Left heart catheterization. 3. Selective left and right coronary angiography. 4. Left ventricle angiography. 5. Sedation time, start 1440 hours, end 1442 hours. DESCRIPTION OF PROCEDURE: The patient was prepped and draped in a sterile fashion after informed consent. The right femoral artery and vein were both entered using Seldinger technique. A 6-Mauritian sheath was placed in the artery and an 8-[place]aur[place] sheath in the vein. [place] catheterization was performed with a [place] catheter advanced to the pulmonary artery position. The pigtail catheter was then advanced into the left ventricle. Cardiac output was measured by using the thermodilution method. Simultaneous left and right heart filling pressures were measured and the [place] catheter was then withdrawn and right heart pressures recorded on pullback. Left ventricle angiography was then performed following which the pigtail catheter was withdrawn across the aortic valve and transaortic pressures were recorded. Finally, simultaneous left and right coronary angiography was performed. The catheters were then withdrawn. The sheaths were withdrawn and hemostasis over the arterial site using an Angio-Seal device and over the venous site, manual compression. The patient was returned to the postprocedure unit in stable condition. There were no complications. FINDINGS: HEMODYNAMICS: The mean right atrial pressure was 18-20. Right ventricular pressure was 80/20. Pulmonary artery pressure was 80/40. The mean pulmonary artery wedge pressure was 30. Left ventricular end-diastolic pressure was 25. Ascending aortic pressure was 164/86. There was no significant pressure gradient on pullback across the aortic valve. Cardiac output was 5.15 liters per minute. MITRAL STENOSIS: Simultaneous left ventricular and diastolic and pulmonary artery wedge pressures found a transmitral mean gradient of 11.7 mmHg. Using the Gorlin equation, the mitral valve area was calculated at 1.4 square cm. CORONARY ANGIOGRAPHY: There was mild ostial narrowing of the left main coronary artery. This vessel was otherwise free of significant disease. The left anterior descending artery and its diagonal branches were angiographically normal. The circumflex artery and its obtuse marginal branches were free of significant disease. The right coronary artery was dominant and contained mild disease in its mid segment. The left ventricle was mildly dilated with evidence of [id number] left ventricular systolic dysfunction. Ejection fraction was 35-40%. CONCLUSION: 1. At least moderate to moderately severe mitral stenosis with a mean transmitral gradient of 11.7 mmHg, mitral valve area of 1.4 square cm. 2. Severe pulmonary hypertension with pulmonary artery systolic pressure of 80 mmHg. 3. No significant coronary artery disease, essentially angiographically near-normal coronary arteries. 4. Mild to moderate nonischemic cardiomyopathy, left ventricular ejection fraction 35-40%. RECOMMENDATION: 1. Further CT surgery assessment of the patient's mitral valve disease. The severity of the pulmonary hypertension complicates surgical management of mitral stenosis. 2. The patient should also be considered for cardiac MRI to evaluate for infiltrative cardiomyopathy in the setting of recurrent biventricular failure, nonischemic left ventricular systolic dysfunction and severe pulmonary hypertension. [facility]# [id number] SUSHMA/MYKEL
[2019-01-12] MEDS: PRAVACHOL PO SCH (22:06)
[2019-01-12] MEDS: LANTUS SUB-Q SCH (22:08)
[2019-01-12] MEDS: LOVENOX SUB-Q SCH (22:11)
[2019-01-13] MEDS: LASIX IV SCH (06:16)
[2019-01-13] MEDS ORDERED: DUONEB *Not for PRN Use IH SCH (08:00)
--- NOTE | 2019-01-13 08:08 | Discharge Summary ---
Providers - Providers Date of Admission: 01/07/19 18:52 Date of discharge: 01/13/19 Attending physician: MIKA NEVILLE 01/07/19 19:35 Consult to Dietitian/Nutrition [CONS] Routine Physician Instructions: Reason For Exam: Reason for Consult: Diet education 01/08/19 11:07 Consult to Physician [CONS] Routine Comment: Consulting Provider: TANESHA GENAO Physician Instructions: Reason For Exam: COPD exacerbation 01/08/19 14:08 Consult to Physician [CONS] Routine Comment: Consulting Provider: WILMA HOLLOWAY Physician Instructions: Reason For Exam: CHF exacerbation 01/11/19 07:47 Consult to Physician [CONS] Routine Comment: Consulting Provider: SARAH MONTGOMERY Physician Instructions: Reason For Exam: Positive blood culture 01/12/19 16:06 Consult to Cardiac Rehabilitation [CONS] Routine Reason For Exam: Cardiac Rehab Evaluation Primary care physician: [facility] Hospitalization Reason for admission: SOB Condition: Stable Hospital course: 3 y/o female with history of obesity, chronic nicotine dependence, hypertension, diabetes, hyperlipidemia, COPD on home oxygen, CHF, left lower lobe calcified nodule, Pulm HTN, ETHAN/OHS, Acute/chronic respiratory failure, hypoxia, Chronic hypercapneic respiratory failure, recently admitted on 01/07/2019 due to worsening shortness of breath. Patient had a similar admission in October 2018 found to have pneumonia and a LLL nodule. LLL nodule has been present for years and was hypometabolic on 06/2018 per pulmonary; she did have some enlarged mediastinal/axillary/supraclavicular nodes on PET which she is aware of, but she has not followed up re: these as recommended (supposed to f/u with heme/onc and Dr. Priest); recommend a f/u PET +/- biopsy as outpatient. Discharged from [facility] last month with plan to undergo ischemic evaluation with L/RHC as outpatient. In the ED, temp 98.5, HR 93, O2 sat 77%, WBC 7.3. Glucose 390. The patient was admitted with diagnosis of acute on chronic systolic heart failure, pulmonary hypertension, ETHAN/OHS and COPD exacerbation. A month ago via echocardiogram she was Found to have mitral stenosis, and recurrent congestive heart failure. She was planned for a right and left heart catheterization for further assessment of mitral valve pathology, which may ultimately indicate surgical intervention. The patient was seen by cardiology in consultation who opted to perform right and left heart catheterization during this hospitalization. However, prior to the procedure patient was noted to have a fever and blood cultures were drawn that were positive. ID saw the patient in consultation and started antibiotics empirically. Blood cultures grew micrococcus 1 out of 4 bottles which was felt to be likely a contaminant. Cardiology did not want to perform the procedure until cleared by ID which was later achieved and antibiotics were discontinued after repeat blood cultures were negative. Patient tolerated procedure well with no complications. Patient was noted to have severe pulmonary hypertension with PA systolic pressure of 80. Moderate to severe mitral stenosis and gradient of 11.7 and no significant coronary artery disease but nonischemic cardiomyopathy with EF of 35-40%. Cardiology opted for medical therapy for nonischemic cardiomyopathy and systolic heart failure. Patient is to have outpatient surgical assessment mitral valve disease proceeded by cardiac MRI. Cardiology felt that the patient was stable for discharge. Pulmonary also saw the patient in consultation for the acute on chronic hypercapnic hypoxemic respiratory failure. Recommendations were for continued diuresis and blood pressure optimization. Patient should have as an outpatient weight loss, CPAP daily at bedtime, sodium restriction and smoking cessation. With regards to the left lower lung nodule--she did have some enlarged mediastinal/axillary/supraclavicular nodes on PET which she is aware of, but she has not followed up re: these as recommended (supposed to f/u with heme/onc and Dr. Priest); recommend a f/u PET +/- biopsy as outpatient (advised her again of need to f/u with Dr. Priest EMMA post-discharge, she expressed understanding). Dedicated discharge time 48 minutes. Disposition: DC-01 TO HOME OR SELFCARE Time spent for discharge: 48 - Discharge Diagnoses (1) Acute on chronic respiratory failure with hypoxemia Status: Acute (2) Acute on chronic systolic congestive heart failure Status: Acute (3) COPD with acute exacerbation Status: Acute (4) Acute CHF (congestive heart failure) Status: Acute Comment: EF 45 to 50% (5) CHF (congestive heart failure) Status: Acute Comment: Patient did not come in for congestive heart failure this time. Has a history of congestive heart failure. Ejection fraction less than 40%. Patient on Coreg lisinopril and diuretic. Fairly well compensated at this particular time. (6) Lymphadenopathy Status: Acute (7) O2 dependent Status: Acute (8) COPD (chronic obstructive pulmonary disease) Status: Chronic Qualifiers: COPD type: unspecified COPD Qualified Code(s): J44.9 - Chronic obstructive pulmonary disease, unspecified (9) Pulmonary hypertension Status: Chronic Core Measure Documentation - Palliative Care Palliative Care/ Comfort Measures: Not Applicable - Core Measures Any of the following diagnoses?: none Exam - Constitutional Vitals: Temp Pulse Resp BP Pulse Ox 97.6 F 80 18 137/77 95 01/13/19 04:44 01/13/19 04:44 01/13/19 04:44 01/13/19 04:44 01/13/19 04:44 General appearance: Present: no acute distress, well-nourished - EENT Eyes: Present: PERRL ENT: hearing intact, clear oral mucosa - Neck Neck: Present: supple, normal ROM - Respiratory Respiratory effort: normal Respiratory: bilateral: CTA - Cardiovascular Heart Sounds: Present: S1 & S2. Absent: rub, click - Extremities Extremities: pulses symmetrical, No edema Peripheral Pulses: within normal limits - Abdominal General gastrointestinal: Present: soft, non-tender, non-distended, normal bowel sounds Female genitourinary: Present: normal - Integumentary Integumentary: Present: clear, warm, dry - Musculoskeletal Musculoskeletal: gait normal, strength equal bilaterally - Psychiatric Psychiatric: appropriate mood/affect, intact judgment & insight - Neurologic Neurologic: CNII-XII intact, moves all extremities Plan Activity: advance as tolerated Weight Bearing Status: Weight Bear as Tolerated Diet: regular Additional Instructions: Weight loss, CPAP QHS, sodium restriction, and smoking cessation needed as outpatient. --LLL nodule has been present for years and was hypometabolic on 06/2018; she did have some enlarged mediastinal/axillary/supraclavicular nodes on PET which she is aware of, but she has not followed up re: these as recommended (supposed to f/u with heme/onc and Dr. Priest); recommend a f/u PET +/- biopsy as outpatient (advised her again of need to f/u with Dr. Cem CARTER post-discharge, she expressed understanding) Follow up with: PRIMARY MD WILLIE [Primary Care Provider] - 7 Days KENYETTA SOOLMON MD [Staff Physician] - 7 Days RACHEL MACDONALD MD [Staff Physician] - 7 Days GEOFF KEE DO [Staff Physician] - 7 Days Prescriptions: Aspirin [Aspirin BABY CHEW TAB] 81 mg PO QDAY #30 tab.chew Isosorb Dinit/Hydralazine [Bidil 20/37.5MG] 1 tab PO BID #60 tablet Exenatide Microspheres [Bydureon Bcise] 2 mg SQ QWEEK 30 Days auto.injct Carvedilol [Coreg] 6.25 mg PO BID #60 tablet predniSONE [Deltasone] 20 mg PO QDAY #20 tablet Ipratropium/Albuterol Sulfate [DUONEB *Not for PRN Use*] 1 ampul IH TID #100 ampul.neb metFORMIN [Glucophage] 500 mg PO BID #60 tablet Insulin Glargine [Lantus VIAL] 35 units SUB-Q QHS #10 units Furosemide [Lasix TAB] 40 mg PO QDAY #30 tablet amLODIPine [Norvasc] 10 mg PO DAILY #30 tablet ALBUTEROL Inhaler (OR & NICU) [ProAir HFA Inhaler] 1 puff IH Q4H PRN #1 inha PRN Reason: Dyspnea Pantoprazole [Protonix TAB] 40 mg PO QDAY #30 tablet Simvastatin [Zocor TAB] 40 mg PO QHS #30 tablet Allopurinol [Zyloprim] 300 mg PO DAILY #30 tablet
[2019-01-13] MEDS: PULMICORT IH SCH (08:24)
[2019-01-13 08:39] VITALS: BP 139/94
--- NOTE | 2019-01-13 09:52 | Progress Note ---
Assessment and Plan Cultures: Blood culture 01/07/2019 Micrococus +other species Blood culture 01/10/2019 no growth in 48 hours Assessment: 53 y/o female with history of obesity, chronic nicotine dependence, hypertens ion, diabetes, hyperlipidemia, COPD on home oxygen, CHF, left lower lobe calcified nodule, Pulm HTN, ETHAN/OHS, Acute/chronic respiratory failure, hypoxia, Chronic hypercapneic respiratory failure, recently admitted on 01/07/2019 due to worsening shortness of breath: 1) Micrococcus bacteremia: plus other species. Blood culture 01/07/2019 GPC in clusters 1 of 4 bottles, likely contaminant, patient w/o sepsis, no fever, no leukocytosis. No intravenous indwelling devices. 2) Acute on chronic respiratory failure: multifactorial-recurrent congestive heart failure, COPD, ETHAN, pulm HTN 3) LLL nodule: has been present for years and was hypometabolic on 06/2018 per pulmonary; she did have some enlarged mediastinal/axillary/supraclavicular nodes on PET which she is aware of, but she has not followed up re: these as recommended (supposed to f/u with heme/onc and Dr. Priest); recommend a f/u PET +/- biopsy as outpatient. Discharged from [facility] last month with plan to undergo ischemic evaluation with L/RHC as outpatient. Denies fever, chills, N/V/D, productive cough. Recommendations: - follow-up blood cultures -monitor off antibiotics ID is signing off [facility] M: [id number] O:[phone] Subjective Date of service: 01/13/19 Principal diagnosis: Shortness of breath Interval history: Patient seen and examined. Reports no acute distress. No fevers. Objective - Exam Narrative Exam: Constitutional: Alert, cooperative. No acute distress Head, Ears, Nose: Normocephalic, atraumatic. External ears, nose normal Eyes: Conjunctivae/corneas clear. No icterus. No ptosis. Neck: Supple, no meningeal signs Oral: dentition fair. No thrush. Cardiovascular: S1, S2 normal. Respiratory: Good air entry, clear to auscultation bilaterally GI: Soft, non-tender; bowel sounds normal. No peritoneal signs Musculoskeletal: No pedal edema, no cyanosis. Skin: No rash or abscess. Hem/Lymphatic: No palpable cervical or supraclavicular nodes. No lymphangitis Psych: Mood ok. Affect normal Neurological: Awake, alert, oriented. - Constitutional Vitals: Vital Signs Temp Pulse Resp BP Pulse Ox 97.7 F 87 18 139/94 90 01/13/19 08:34 01/13/19 08:34 01/13/19 09:01 01/13/19 08:34 01/13/19 08:34 Temperature -Last 24 Hours Temperature 97.7 F Temperature 97.6 F Temperature 98.4 F Temperature 97.3 F Temperature 98.2 F - Labs CBC & Chem 7: 01/08/19 05:15 01/12/19 05:04 Labs: Abnormal lab results 01/12/19 01/12/19 01/12/19 Range/Units 08:21 11:44 18:24 POC Glucose 345 H 370 H 290 H (70-105) 01/12/19 01/13/19 Range/Units 21:37 08:36 POC Glucose 304 H 253 H (70-105)
[2019-01-13] MEDS: ZYLOPRIM PO SCH (09:54)
[2019-01-13] MEDS: GLUCOPHAGE PO SCH (09:54)
[2019-01-13] MEDS: NORVASC PO SCH (09:54)
[2019-01-13] MEDS: BABY ASPIRIN PO SCH (09:55)
[2019-01-13] MEDS: HumaLOG SUB-Q SCH (09:55)
[2019-01-13] MEDS: BIDIL 20/37.5MG PO SCH (09:55)
[2019-01-13] MEDS: COREG PO SCH (09:55)
[2019-01-13] MEDS: PROTONIX PO SCH (09:55)
[2019-01-13] MEDS: COLACE PO SCH (09:55)
[2019-01-13] MEDS ORDERED: DELTASONE PO SCH (10:00)
[2019-01-13] MEDS: SODIUM CHLORIDE FLUSH SYRINGE 10 ML IV SCH (10:00)
--- NOTE | 2019-01-13 10:23 | Progress Note ---
Assessment and Plan Shortness of breath - reason for admission Patient admits non-compliance with fluid restriction Chronic combined systolic and diastolic heart failure Severe COPD on home oxygen therapy Cor Pulmonale and Pulmonary hypertension Mitral stenosis Type II DM, uncontrolled Patient underwent a right and left heart catheterization this admission Findings: 1. Severe pulmonary hypertension, PA systolic pressure of 80. 2. Moderate to severe mitral stenosis, mean mitral gradient of 11.7, mitral valve area of 1.4. 3. No significant coronary artery disease. 4. Nonischemic cardiomyopathy, left ventricular ejection fraction 35-40%. Recommendations: Continue medical therapy for nonischemic cardiomyopathy and systolic heart failure. Outpatient surgical assessment of mitral valve disease, preceded by cardiac MRI. Once discharged, patient will follow up with Dr Santos as previously scheduled. Subjective Date of service: 01/13/19 Principal diagnosis: Shortness of breath Interval history: Patient appears comfortable. She denies chest pain. No distress noted. Dressing applied to right groin cath site. Objective Vital Signs Temp Pulse Pulse Resp Resp BP Pulse Ox 01/13/19 09:55 87 139/94 01/13/19 09:54 87 139/94 01/13/19 09:01 18 01/13/19 08:34 97.7 F 87 18 139/94 90 01/13/19 08:32 74 18 01/13/19 08:27 93 01/13/19 08:20 70 18 01/13/19 04:44 97.6 F 80 18 137/77 95 01/13/19 00:06 98.4 F 91 H 18 128/74 90 01/12/19 22:07 81 131/84 01/12/19 21:10 73 20 01/12/19 20:58 92 01/12/19 20:57 83 20 01/12/19 20:17 97.3 F L 81 18 131/84 96 01/12/19 19:00 60 01/12/19 18:21 98.2 F 71 18 149/87 89 - Physical Examination General: No Apparent Distress HEENT: Positive: PERRL Neck: Positive: trachea midline Cardiac: Positive: Reg Rate and Rhythm Lungs: Positive: Decreased Breath Sounds Neuro: Positive: Grossly Intact Incision: Cardiac Cath Site (right groin) Extremities: Present: +1 Edema - Imaging and Cardiology EKG: image reviewed (sinus rhythm at 87 bpm, atrial premature complexes, pro bable left atrial enlargement and anteroseptal infarct age undetermined)
--- NOTE | 2019-01-13 10:54 | Progress Note ---
Assessment and Plan Imp: 1. Acute/chronic systolic CHF; NICMP 2. Pulm HTN, suspect due to L-sided heart disease, ETHAN/OHS, and COPD 3. Acute/chronic respiratory failure, hypoxia 4. Chronic hypercapneic respiratory failure 5. Obesity with ETHAN/OHS 6. Chronic nicotine dependence, cigs 7. LLL Pulm nodule 8. Mitral stenosis Rec: 1. Cont. Diuresis, BP optimization 2. Weight loss, CPAP QHS, sodium restriction, and smoking cessation needed as outpatient; this was discussed with patient, she understands 3. LLL nodule has been present for years and was hypometabolic on 06/2018; she did have some enlarged mediastinal/axillary/supraclavicular nodes on PET which she is aware of, but she has not followed up re: these as recommended (supposed to f/u with heme/onc and Dr. Priest); recommend a f/u PET +/- biopsy as outpatient (advised her again of need to f/u with Dr. Priest [facility] post-discharge in 1-2 weeks, she expressed understanding) 4. Per cardiology needs cardiac surgery referral re: [place] 5. 1 of 4 GPC in clusters likely contaminant; ID on board 6. Changed to Prednisone 40mg today, and taper slowly as an outpatient 7. Okay to d/c home pulmonary-[facility]ela with close f/u (Dr. Priest, Dr. Santos with [facility], cardiac surgery); prognosis is guarded due to poor compliance and poor f/u, plus ongoing smoking Plan of care reviewed w/ patient, she understands/agrees Subjective Date of service: 01/13/19 Principal diagnosis: Shortness of breath Interval history: Has FRENCH but near baseline. LE edema better. On 3L NC. No new complaints. Active Medications Acetaminophen (Tylenol) 650 mg PO Q4H PRN PRN Reason: Pain MILD(1-3)/Fever >100.5/WANG Last Admin: 01/08/19 22:31 Dose: 650 mg Documented by: Albuterol (Proventil) 2.5 mg IH Q4HRT PRN PRN Reason: Shortness Of Breath Last Admin: 01/10/19 17:02 Dose: 2.5 mg Documented by: Albuterol/Ipratropium (Duoneb *Not For Prn Use*) 1 ampul IH TIDRT [facility] Last Admin: 01/13/19 08:24 Dose: 1 ampul Documented by: Allopurinol (Zyloprim) 300 mg PO DAILY [facility] Last Admin: 01/13/19 09:54 Dose: 300 mg Documented by: Amlodipine Besylate (Norvasc) 10 mg PO DAILY [facility] Last Admin: 01/13/19 09:54 Dose: 10 mg Documented by: Aspirin (Baby Aspirin) 81 mg PO QDAY [facility] Last Admin: 01/13/19 09:55 Dose: 81 mg Documented by: Budesonide (Pulmicort) 0.5 mg IH Q12HRT [facility] Last Admin: 01/13/19 08:24 Dose: 0.5 mg Documented by: Carvedilol (Coreg) 6.25 mg PO BID [facility] Last Admin: 01/13/19 09:55 Dose: 6.25 mg Documented by: Dextrose (D50w (25gm) Syringe) 50 ml IV PRN PRN PRN Reason: Hypoglycemia Docusate Sodium (Colace) 100 mg PO BID [facility] Last Admin: 01/13/19 09:55 Dose: 100 mg Documented by: Enoxaparin Sodium (Lovenox) 40 mg SUB-Q QDAY@2200 [facility] Last Admin: 01/12/19 22:11 Dose: Not Given Documented by: Furosemide (Lasix) 40 mg IV DAILY@0600 [facility] Last Admin: 01/13/19 06:16 Dose: 40 mg Documented by: Hydralazine HCl (Apresoline) 10 mg IV Q4HR PRN PRN Reason: Blood Pressure Insulin Glargine (Lantus) 35 units SUB-Q QHS [facility] Last Admin: 01/12/19 22:08 Dose: 35 units Documented by: Insulin Human Lispro (Humalog) 0 unit SUB-Q [facility]; Protocol Last Admin: 01/13/19 09:55 Dose: 4 unit Documented by: Isosorbide Dinitrate/Hydralazine (Bidil 20/37.5mg) 1 each PO BID [facility] Last Admin: 01/13/19 09:55 Dose: 1 each Documented by: Metformin HCl (Glucophage) 500 mg PO BID [facility] Last Admin: 01/13/19 09:54 Dose: 500 mg Documented by: Ondansetron HCl (Zofran) 4 mg IV Q8H PRN PRN Reason: Nausea And Vomiting Pantoprazole Sodium (Protonix) 40 mg PO QDAY [facility] Last Admin: 01/13/19 09:55 Dose: 40 mg Documented by: Pravastatin Sodium (Pravachol) 80 mg PO QHS [facility] Last Admin: 01/12/19 22:06 Dose: 80 mg Documented by: Prednisone (Deltasone) 40 mg PO QDAY [facility] Last Admin: 01/13/19 09:54 Dose: 40 mg Documented by: Sodium Chloride (Sodium Chloride Flush Syringe 10 Ml) 10 ml IV BID [facility] Last Admin: 01/13/19 10:00 Dose: 10 ml Documented by: Sodium Chloride (Sodium Chloride Flush Syringe 10 Ml) 10 ml IV PRN PRN PRN Reason: LINE FLUSH Objective Vital Signs - 12hr 01/13/19 01/13/19 01/13/19 00:06 04:44 08:20 Temperature 98.4 F 97.6 F Pulse Rate 91 H 80 Pulse Rate [ 70 Anterior Bilateral] Respiratory 18 18 Rate Respiratory 18 Rate [Anterior Bilateral] Blood Pressure 128/74 137/77 O2 Sat by Pulse 90 95 Oximetry 01/13/19 01/13/19 01/13/19 08:27 08:32 08:34 Temperature 97.7 F Pulse Rate 87 Pulse Rate [ 74 Anterior Bilateral] Respiratory 18 Rate Respiratory 18 Rate [Anterior Bilateral] Blood Pressure 139/94 O2 Sat by Pulse 93 90 Oximetry 01/13/19 01/13/19 01/13/19 09:01 09:54 09:55 Temperature Pulse Rate 87 87 Pulse Rate [ Anterior Bilateral] Respiratory 18 Rate Respiratory Rate [Anterior Bilateral] Blood Pressure 139/94 139/94 O2 Sat by Pulse Oximetry Constitutional: no acute distress, alert, other (obese) Eyes: non-icteric ENT: oropharynx moist Neck: supple Effort: normal Ascultation: Bilateral: diminished breath sounds (due to obesity; no wheezes) Cardiovascular: regular rate and rhythm (no mrg) Gastrointestinal: normoactive bowel sounds, soft, non-tender, non-distended Integumentary: normal Extremities: no cyanosis, pink and warm, edema (trace bilateral LE edema) Neurologic: normal mental status, non-focal exam, pupils equal and round, CN II- XII normal Psychiatric: mood appropriate, affect normal CBC and BMP: 01/08/19 05:15 01/12/19 05:04 ABG, PT/INR, D-dimer: ABG POC ABG pH 7.366 (7.35-7.45) 01/07/19 17:55 POC ABG pCO2 59.1 (35-45) H 01/07/19 17:55 POC ABG pO2 63 (80-105) L 01/07/19 17:55 POC ABG HCO3 33.8 (22-26 mml/L) 01/07/19 17:55 POC ABG Total CO2 36 (23-27mmol/L) 01/07/19 17:55 POC ABG O2 Sat 90 01/07/19 17:55 PT/INR, D-dimer PT 13.5 Sec. (12.2-14.9) 01/11/19 08:05 INR 0.97 (0.87-1.13) 01/11/19 08:05 Abnormal lab findings: Abnormal Labs 01/07/19 01/07/19 01/07/19 17:19 17:19 17:19 RDW 16.0 H Seg Neutrophils % 72.8 H Seg Neuts % (Manual) Lymphocytes % (Manual) Lymphocytes # (Manual) POC ABG pCO2 POC ABG pO2 Sodium Chloride 96.9 L Carbon Dioxide 32 H BUN Glucose 290 H POC Glucose Hemoglobin A1c 11.0 H Magnesium 2.50 H Albumin 2.9 L Vancomycin Trough 01/07/19 01/07/19 01/08/19 17:55 21:18 05:15 RDW 15.7 H Seg Neutrophils % Seg Neuts % (Manual) 92.0 H Lymphocytes % (Manual) 7.0 L Lymphocytes # (Manual) 0.5 L POC ABG pCO2 59.1 H POC ABG pO2 63 L Sodium Chloride Carbon Dioxide BUN Glucose POC Glucose 269 H Hemoglobin A1c Magnesium Albumin Vancomycin Trough 01/08/19 01/08/19 01/08/19 05:15 12:20 17:42 RDW Seg Neutrophils % Seg Neuts % (Manual) Lymphocytes % (Manual) Lymphocytes # (Manual) POC ABG pCO2 POC ABG pO2 Sodium Chloride 96.5 L Carbon Dioxide 33 H BUN 20 H Glucose 391 H POC Glucose 392 H 423 H Hemoglobin A1c Magnesium Albumin Vancomycin Trough 01/08/19 01/09/19 01/09/19 21:11 04:53 07:22 RDW Seg Neutrophils % Seg Neuts % (Manual) Lymphocytes % (Manual) Lymphocytes # (Manual) POC ABG pCO2 POC ABG pO2 Sodium Chloride Carbon Dioxide 31 H BUN 25 H Glucose 265 H POC Glucose 421 H 243 H Hemoglobin A1c Magnesium Albumin Vancomycin Trough 01/09/19 01/09/19 01/09/19 11:47 17:22 21:24 RDW Seg Neutrophils % Seg Neuts % (Manual) Lymphocytes % (Manual) Lymphocytes # (Manual) POC ABG pCO2 POC ABG pO2 Sodium Chloride Carbon Dioxide BUN Glucose POC Glucose 282 H 319 H 374 H Hemoglobin A1c Magnesium Albumin Vancomycin Trough 01/10/19 01/10/19 01/10/19 08:39 11:57 17:02 RDW Seg Neutrophils % Seg Neuts % (Manual) Lymphocytes % (Manual) Lymphocytes # (Manual) POC ABG pCO2 POC ABG pO2 Sodium Chloride Carbon Dioxide BUN Glucose POC Glucose 276 H 341 H 290 H Hemoglobin A1c Magnesium Albumin Vancomycin Trough 01/10/19 01/11/19 01/11/19 21:45 05:34 08:06 RDW Seg Neutrophils % Seg Neuts % (Manual) Lymphocytes % (Manual) Lymphocytes # (Manual) POC ABG pCO2 POC ABG pO2 Sodium Chloride 97.7 L Carbon Dioxide BUN 27 H Glucose 390 H POC Glucose 328 H 337 H Hemoglobin A1c Magnesium Albumin Vancomycin Trough 01/11/19 01/11/19 01/11/19 11:09 12:18 16:54 RDW Seg Neutrophils % Seg Neuts % (Manual) Lymphocytes % (Manual) Lymphocytes # (Manual) POC ABG pCO2 POC ABG pO2 Sodium Chloride Carbon Dioxide BUN Glucose POC Glucose 320 H 371 H Hemoglobin A1c Magnesium Albumin Vancomycin Trough 20.2 H 01/11/19 01/12/19 01/12/19 21:22 05:04 08:21 RDW Seg Neutrophils % Seg Neuts % (Manual) Lymphocytes % (Manual) Lymphocytes # (Manual) POC ABG pCO2 POC ABG pO2 Sodium 135 L Chloride 94.3 L Carbon Dioxide 33 H BUN 30 H Glucose 404 H POC Glucose 408 H 345 H Hemoglobin A1c Magnesium Albumin Vancomycin Trough 01/12/19 01/12/19 01/12/19 11:44 18:24 21:37 RDW Seg Neutrophils % Seg Neuts % (Manual) Lymphocytes % (Manual) Lymphocytes # (Manual) POC ABG pCO2 POC ABG pO2 Sodium Chloride Carbon Dioxide BUN Glucose POC Glucose 370 H 290 H 304 H Hemoglobin A1c Magnesium Albumin Vancomycin Trough 01/13/19 08:36 RDW Seg Neutrophils % Seg Neuts % (Manual) Lymphocytes % (Manual) Lymphocytes # (Manual) POC ABG pCO2 POC ABG pO2 Sodium Chloride Carbon Dioxide BUN Glucose POC Glucose 253 H Hemoglobin A1c Magnesium Albumin Vancomycin Trough Chest x-ray: report reviewed, image reviewed
== END 2019-01-13 11:27 | disposition home or self-care (01) | DRG 286 ==
LOC: ED 16:42 → 4A 18:52
PROVIDERS: ADMIT Internal Medicine; ATTEND Hospitalist
PROC: 4A033R1 Measurement of Arterial Saturation, Peripheral, Percutaneous Approach (ICD-10-PCS; 2019-01-07)
PROC: 5A09557 Assistance with Respiratory Ventilation, Greater than 96 Consecutive Hours, Continuous Positive Airway Pressure (ICD-10-PCS; 2019-01-07)
PROC: 4A023N8 Measurement of Cardiac Sampling and Pressure, Bilateral, Percutaneous Approach (ICD-10-PCS; principal; 2019-01-12)
PROC: B2111ZZ Fluoroscopy of Multiple Coronary Arteries using Low Osmolar Contrast (ICD-10-PCS; 2019-01-12)
PROC: B2151ZZ Fluoroscopy of Left Heart using Low Osmolar Contrast (ICD-10-PCS; 2019-01-12)
DX: I11.0 Hypertensive heart disease with heart failure (principal); J96.21 Acute and chronic respiratory failure with hypoxia; J96.22 Acute and chronic respiratory failure with hypercapnia; J44.1 Chronic obstructive pulmonary disease with (acute) exacerbation; E66.2 Morbid (severe) obesity with alveolar hypoventilation; R78.81 Bacteremia; I50.43 Acute on chronic combined systolic (congestive) and diastolic (congestive) heart failure; F17.200 Nicotine dependence, unspecified, uncomplicated; E11.9 Type 2 diabetes mellitus without complications; R59.1 Generalized enlarged lymph nodes; I27.20 Pulmonary hypertension, unspecified; E78.5 Hyperlipidemia, unspecified; M10.9 Gout, unspecified; M19.90 Unspecified osteoarthritis, unspecified site; R91.8 Other nonspecific abnormal finding of lung field; D64.9 Anemia, unspecified; I05.0 Rheumatic mitral stenosis; R91.1 Solitary pulmonary nodule; Z99.81 Dependence on supplemental oxygen; Z79.899 Other long term (current) drug therapy; Z79.82 Long term (current) use of aspirin; Z87.01 Personal history of pneumonia (recurrent); Z86.711 Personal history of pulmonary embolism
CPT/HCPCS: 36415; 71045; 80048; 80053; 80202; 82803; 82962; 83036; 83735; 84484; 85007; 85025; 85610; 87040; 93005; 93010; 93460; 94640; 94660; 94760; 96365; 96372; 96375; 99285; G0378; A9270-GY; C1760; C1769; C1894; J1644; J1650; J1815; J1940; J1956; J2250; J2930; J3010; J3370; J3475; J7030; J7040; J7050; J7512; Q9967

== ENCOUNTER 2019-02-24 09:39 | Outpatient (CLI) | payer MEDICARE ==
--- NOTE | 2019-02-24 11:51 | Ultrasound Report ---
BILATERAL DIGITAL DIAGNOSTIC MAMMOGRAM with CAD and LEFT BREAST ULTRASOUND: 02/24/19 10:00:00 CLINICAL: Left breast lump. According to the patient, she has been recently treated with antibiotics. COMPARISON:12/10/17 FINDINGS: The breasts are heterogeneously dense, which may obscure small masses.New left periareolar skin thickening, a new 1 cm left periareolar mass and a new mass associated with the left nipple when compared to the last mammogram. 2 prominent left axillary lymph nodes. Ultrasound of the left breast demonstrated an oval solid hypoechoic retroareolar mass associated with the nipple measuring 1.6 x 1.2 x 1.8 cm. A second superficial periareolar mass at the edge of the areola measures 6 x 4 x 6 mm and correlates with the palpable marker. A third superficial mass is at the edge of the areola and closer to the nipple and measures 5 x 3 x 5 mm. Ultrasound of the left axilla demonstrated a suspicious lymph node with cortical thickening of 6 mm. The lymph node measures 2.0 x 0.8 x 1.0 cm. A second axillary lymph node has central fat and benign morphology and measures 1.0 cm. IMPRESSION: 1. 3 suspicious solid left breast masses (at the nipple and immediately adjacent to the nipple and a suspicious left axillary lymph node. 2. Recommend ultrasound-guided needle core biopsy of the dominant solid mass associated with the left nipple and ultrasound-guided needle core biopsy of the suspicious left axillary lymph node. BI-RADS CATEGORY: 4--Suspicious I discussed the findings and the recommendation for two needle core biopsies (left breast mass and left axillary lymph node) with the patient at the time of the examination. COMMENT: 1. Dense breast tissue, i.e., adenosis, fibrocystic changes, etc., may obscure an underlying neoplasm. 2. Approximately 10% of cancers are not detected with mammography. 3. A negative mammography report should not delay biopsy if a clinically suspicious mass is present. COMMENT: Patient follow-up letters are generated by our [employer] application.
== END 2019-02-24 09:40 | disposition home or self-care (01) ==
LOC: MAMMO 09:39
PROVIDERS: ATTEND Internal Medicine
DX: N60.22 Fibroadenosis of left breast (principal); E11.9 Type 2 diabetes mellitus without complications; E78.5 Hyperlipidemia, unspecified; J43.9 Emphysema, unspecified; I11.0 Hypertensive heart disease with heart failure; I50.9 Heart failure, unspecified; E78.00 Pure hypercholesterolemia, unspecified
CPT/HCPCS: 77066